=== PATIENT | male | born 1965 | race American Indian/Alaskan Native ===

== ENCOUNTER 2022-01-17 12:38 | Inpatient (IN) | payer OTHER ==
[2022-01-17 14:44] LABS: Albumin 4.3 g/dL (3.9-5); Calcium 8.1 mg/dL (8.4-10.2); Hematocrit 29.8 % (35.5-45.6); Hemoglobin 9.5 gm/dl (11.8-15.2); Mean Corpuscular HGB Conc 32 % (32-34); Mean Corpuscular Volume 87 fl (84-94); Platelet Count 197 K/mm3 (140-440); Red Blood Count 3.41 M/mm3 (3.65-5.03); Red Cell Distribution Width 13.6 % (13.2-15.2)
[2022-01-17 16:26] LABS: Band Neutrophils # (Manual) 0.2 K/mm3; Basophils % (Manual) 0 % (0.0-1.8); Platelet Estimate Consistent w Auto; Total Cells Counted 100
--- NOTE | 2022-01-17 21:47 | Emergency Department Report ---
ED General Adult HPI - General Chief complaint: Recheck/Abnormal Lab/Rx Stated complaint: They sent me here because of my kidney lab Time Seen by Provider: 01/17/22 21:07 Source: patient, RN notes reviewed Mode of arrival: Ambulatory Limitations: No Limitations - History of Present Illness Initial comments: The patient was evaluated in the emergency department for symptoms described in the history of present illness. He/she was evaluated in the context of the global COVID-19 pandemic, which necessitated consideration that the patient might be at risk for infection with the virus that causes COVID-19. Institutional protocols and algorithms that pertain to the evaluation of patients at risk for COVID-19 are in a state of rapid change based on in formation released by regulatory bodies including the CDC and federal and state organizations. These policies and algorithms were followed during the patient's care in the emergency department. Please note that these policies, procedures and recommendations changed on a rapid basis. Nephrology: Dr. Senior Past medical history: Hypertension, high cholesterol, diabetes, recent diagnosis of renal insufficiency. This patient is a pleasant and cooperative 56-year-old gentleman, who was instructed to come to the emergency room because of abnormal outpatient laboratory studies. The patient reports that he was recently diagnosed with chronic renal insufficiency, and is currently following up with nephrology, Dr. Senior, as well as outpatient vascular surgery, [facility] [place]. He is not currently on hemodialysis. He reports that he recently had outpatient laboratory studies obtained, reportedly they were abnormal, and he was instructed to present to the emergency room. The patient currently denies headache, neck pain, chest pain, abdominal pain, shortness of breath, nausea, vomiting, diarrhea, and hematemesis of bright red blood per rectum. He does report intermittent bubbles in his urine, as well as protein in his urine. 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 He does endorse intermittent lower extremity swelling, and lower foot cramping, which is intermittent. He is not currently on hemodialysis -: Sudden Severity scale (0 -10): 0 Associated Symptoms: denies other symptoms - Related Data Allergies Allergy/AdvReac Type Severity Reaction Status Date / Time No Known Allergies Allergy Verified 01/17/22 13:24 ED Review of Systems ROS: Stated complaint: KIDNEY Other details as noted in HPI Comment: All other systems reviewed and negative Musculoskeletal: joint swelling, arthralgia, myalgia ED Physical Exam - General Limitations: No Limitations General appearance: alert, in no apparent distress - Head Head exam: Present: atraumatic, normocephalic - Eye Eye exam: Present: normal appearance, EOMI. Absent: nystagmus - ENT ENT exam: Present: normal exam, normal orophraynx, mucous membranes moist, normal external ear exam - Neck Neck exam: Present: normal inspection, full ROM. Absent: tenderness, meningismus - Respiratory Respiratory exam: Present: normal lung sounds bilaterally. Absent: respiratory distress, wheezes, rales, rhonchi, stridor, decreased breath sounds - Cardiovascular Cardiovascular Exam: Present: regular rate, normal rhythm, normal heart sounds. Absent: bradycardia, tachycardia, irregular rhythm, systolic murmur, diastolic murmur, rubs, gallop - GI/Abdominal GI/Abdominal exam: Present: soft. Absent: distended, tenderness, guarding, rebound, rigid, pulsatile mass - Rectal Rectal exam: Present: deferred - Extremities Exam Extremities exam: Present: normal inspection, full ROM, pedal edema, other (2+ pulses noted in the bilateral upper and lower extremities. There is no palpable cord. negative Homans sign. Muscular compartments are soft. The pelvis is stable.). Absent: calf tenderness - Back Exam Back exam: Present: normal inspection. Absent: tenderness, CVA tenderness (R), paraspinal tenderness, vertebral tenderness - Neurological Exam Neurological exam: Present: alert, oriented X3, normal gait, other (No facial droop. Tongue midline. Extraocular movements intact bilaterally. Facial sensation intact to light touch in V1, V2, V3 distribution bilaterally. 5 and a 5 strength in 4 extremities. Sensation intact to light touch in 4 extremities.). Absent: motor sensory deficit - Psychiatric Psychiatric exam: Present: normal affect, normal mood - Skin Skin exam: Present: warm, dry, intact, normal color. Absent: rash ED Course Vital Signs 01/17/22 01/17/22 01/17/22 13:22 20:58 21:38 Temperature 98.2 F 98.7 F Pulse Rate 91 H 78 92 H Respiratory 20 18 Rate Blood Pressure 153/93 171/91 [Right] O2 Sat by Pulse 98 99 98 Oximetry O2 Sat by Pulse Oximetry [ Digit-Finger] 01/17/22 21:47 Temperature Pulse Rate Respiratory Rate Blood Pressure [Right] O2 Sat by Pulse Oximetry O2 Sat by Pulse 99 Oximetry [ Digit-Finger] - Reevaluation(s) Reevaluation #1: 01/17/22 21:45 Differential diagnosis, including but not limited to: Azotemia, uremia, hyperkalemia, anemia of chronic disease, end-stage renal disease Assessment and plan: 56-year-old gentleman, who is afebrile, with reassuring vital signs, in no acute distress, likely presenting with new onset chronic/end- stage renal disease. He has stigmata of renal impairment, manifested by anemia, hyperkalemia, azotemia, uremia, and metabolic acidosis. Lung sounds clear, but he has 1+ edema in the bilateral lower extremities. Have recommended admission to the medical service for the aforementioned. We have placed a page to his n ephrologist on-call, and we are awaiting callback. Patient is asking to be fed. He has not eaten since 8:00 in the morning. We have recommended admission to the medical service with urgent nephrology consultation. Patient is agreeable to admission and hospitalization. Awaiting callback from his oracle [email or web address] developer. 01/17/22 21:52 01/17/22 21:57 I discussed the patient's history, physical, laboratory studies and clinical impression with Dr. Senior. He recommends admission. He states that the [facility] hrology group will coordinate with vascular surgery for dialysis catheter placement/permacath placement. Hospital physician, Dr. Jaeger to admit to [facility] Patient is agreeable to admission hospitalization. Nephrology has recommended medical treatment for hyperkalemia. Hyperkalemia cocktail has been ordered - Pulse Oximetry Interpretation Digit-Finger Initial Pulse Oximetry Readin O2 Sat by Pulse Oximetry: 99 Actions Taken: none ED Medical Decision Making - Lab Data Result diagrams: 01/17/22 13:32 01/17/22 13:32 Vital Signs 01/17/22 01/17/22 01/17/22 13:22 20:58 21:38 Temperature 98.2 F 98.7 F Pulse Rate 91 H 78 92 H Respiratory 20 18 Rate Blood Pressure 153/93 171/91 [Right] O2 Sat by Pulse 98 99 98 Oximetry Lab Results 08/25/22 08/25/22 Range/Units 13:32 13:32 WBC 8.8 (4.5-11.0) K/mm3 RBC 3.41 L (3.65-5.03) M/mm3 Hgb 9.5 L (11.8-15.2) gm/dl Hct 29.8 L (35.5-45.6) % MCV 87 (84-94) fl MCH 28 (28-32) pg MCHC 32 (32-34) % RDW 13.6 (13.2-15.2) % Plt Count 197 (140-440) K/mm3 Eos % (Auto) Band Maker Add Manual Diff Complete Total Counted 100 Seg Neuts % (Manual) 52.0 (40.0-70.0) % Band Neutrophils % 2.0 % Lymphocytes % (Manual) 11.0 L (13.4-35.0) % Reactive Lymphs % (Man) 0 % Monocytes % (Manual) 1.0 (0.0-7.3) % Eosinophils % (Manual) 33.0 H (0.0-4.3) % Basophils % (Manual) 0 (0.0-1.8) % Metamyelocytes % 1.0 % Myelocytes % 0 % Promyelocytes % 0 % Blast Cells % 0 % Nucleated RBC % Not Reportable Seg Neutrophils # Man 4.6 (1.8-7.7) K/mm3 Band Neutrophils # 0.2 K/mm3 Lymphocytes # (Manual) 1.0 L (1.2-5.4) K/mm3 Abs React Lymphs (Man) 0.0 K/mm3 Monocytes # (Manual) 0.1 (0.0-0.8) K/mm3 Eosinophils # (Manual) 2.9 H (0.0-0.4) K/mm3 Basophils # (Manual) 0.0 (0.0-0.1) K/mm3 Metamyelocytes # 0.1 K/mm3 Myelocytes # 0.0 K/mm3 Promyelocytes # 0.0 K/mm3 Blast Cells # 0.0 K/mm3 WBC Morphology Not Reportable Hypersegmented Neuts Not Reportable Hyposegmented Neuts Not Reportable Hypogranular Neuts Not Reportable Smudge Cells Not Reportable Toxic Granulation Not Reportable Toxic Vacuolation Not Reportable Dohle Bodies Not Reportable Pelger-Huet Anomaly Not Reportable Eddie Rods Not Reportable Platelet Estimate Consistent w auto Clumped Platelets Not Reportable Plt Clumps, EDTA Not Reportable Large Platelets Not Reportable Giant Platelets Not Reportable Platelet Satelliting Not Reportable Plt Morphology Comment Not Reportable RBC Morphology Not Reportable Dimorphic RBCs Not Reportable Polychromasia Not Reportable Hypochromasia Not Reportable Poikilocytosis Not Reportable Anisocytosis Not Reportable Microcytosis Not Reportable Macrocytosis Not Reportable Spherocytes Not Reportable Pappenheimer Bodies Not Reportable Sickle Cells Not Reportable Target Cells Not Reportable Tear Drop Cells Not Reportable Ovalocytes Not Reportable Helmet Cells Not Reportable [place] Bodies Not Reportable [place] Rings Not Reportable Barber Cells Not Reportable Bite Cells Not Reportable Crenated Cell Not Reportable Elliptocytes Not Reportable Acanthocytes (Spur) Not Reportable Rouleaux Not Reportable Hemoglobin C Crystals Not Reportable Schistocytes Not Reportable Malaria parasites Not Reportable Santosh Bodies Not Reportable Hem Pathologist Commnt No Sodium 143 (137-145) mmol/L Potassium 5.6 H (3.6-5.0) mmol/L Chloride 113.6 H (98-107) mmol/L Carbon Dioxide 18 L (22-30) mmol/L Anion Gap 17 mmol/L BUN 55 H (9-20) mg/dL Creatinine 7.1 H (0.8-1.3) mg/dL Estimated GFR 10 ml/min BUN/Creatinine Ratio 8 % Glucose 152 H (75-100) mg/dL Calcium 8.1 L (8.4-10.2) mg/dL Total Bilirubin 0.30 (0.1-1.2) mg/dL AST 18 (5-40) units/L ALT 16 (7-56) units/L Alkaline Phosphatase 97 (35-129) units/L Total Protein 6.6 (6.3-8.2) g/dL Albumin 4.3 (3.9-5) g/dL Albumin/Globulin Ratio 1.9 % - EKG Data -: EKG Interpreted by [place] EKG shows normal: sinus rhythm Rate: normal - EKG Data 01/17/22 21:42 The EKG is interpreted at 21: 25 Sinus rhythm, 75 bpm. Normal axis, normal intervals, normal P wave axis, poor R wave progression, and nonspecific T wave abnormalities. Denies chest pain. Abnormal EKG. Not a STEMI There is no prior EKG available for comparison Critical care attestation.: If time is entered above; I have spent that time in minutes in the direct care of this critically ill patient, excluding procedure time. ED Disposition Clinical Impression: Hyperkalemia, ESRD (end stage renal disease), Anemia of chronic disease, Hypertension, Metabolic acidosis Disposition: 09 ADMITTED INPATIENT Is pt being admited?: Yes Does the pt Need Aspirin: No Condition: Good Instructions: Hypertension (ED)
[2022-01-17] MEDS ORDERED: DEXTROSE 50% IN WATER (25GM) 50 ML SYRINGE IV ONE (21:54)
[2022-01-17] MEDS ORDERED: ALBUTEROL 2.5 MG/3 ML NEBU IH ONE (21:54)
[2022-01-17] MEDS ORDERED: INSULIN REGULAR, HUMAN 100 UNITS/1 ML IV ONE (21:54)
[2022-01-17] MEDS ORDERED: SODIUM BICARB 8.4% 50 MEQ/50 ML SYRINGE IV ONE (21:54)
[2022-01-17] MEDS ORDERED: SODIUM POLYSTYRENE 15 GM/60 ML ORAL LIQD PO ONE (21:54)
[2022-01-17] MEDS ORDERED: FUROSEMIDE 40 MG/4 ML INJ IV ONE (21:56)
[2022-01-17] MEDS ORDERED: ACETAMINOPHEN 325 MG TAB PO PRN ×2 (21:59→22:11)
[2022-01-17] MEDS ORDERED: ONDANSETRON 4 MG/2 ML INJ IV PRN ×2 (21:59→22:11)
[2022-01-17] MEDS ORDERED: NALOXONE 0.4 MG/1 ML INJ IV PRN (22:08)
[2022-01-17] MEDS ORDERED: MORPHINE 4 MG/1 ML INJ IV PRN (22:11)
[2022-01-17] MEDS ORDERED: MORPHINE 2 MG/1 ML INJ IV PRN (22:11)
[2022-01-17] MEDS ORDERED: ALBUTEROL 2.5 MG/3 ML NEBU IH PRN (22:11)
--- NOTE | 2022-01-17 22:17 | History and Physical Report ---
History of Present Illness Date of examination: 01/17/22 Date of admission: 01/17/22 Chief complaint: Acute on chronic kidney disease Hyperkalemia History of present illness: 56-year-old gentleman with history of hypertension, high cholesterol, diabetes and renal insufficiency, who was instructed to come to the emergency room because of abnormal outpatient laboratory studies. The patient reports that he was recently diagnosed with chronic renal insufficiency, and is currently following up with nephrology, Dr. Senior, as well as outpatient vascular surgery, [facility] vascular [place]. He is not currently on hemodialysis. He reports that he recently had outpatient laboratory studies obtained, reportedly they were abnormal, and he was instructed to present to the emergency room. The patient currently denies headache, neck pain, chest pain, abdominal pain, shortness of breath, nausea, vomiting, diarrhea, and hematemesis of bright red blood per rectum. He does report intermittent bubbles in his urine, as well as protein in his urine. 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 He does endorse intermittent lower extremity swelling, and lower foot cramping, which is intermittent. In the emergency room patient is found to have BUN of 55 and creatinine 7.1, potassium 5.6, bicarb 18 and anion gap 17. Subsequently Case discussed with Dr. Senior will see the patient in the morning for hemodialysis we also consult vascular surgery for vascular access. Past History Past Medical History: diabetes, ESRD, hypertension, hyperlipidemia, renal failure Past Surgical History: No surgical history Social history: no significant social history Family history: diabetes, hypertension Medications and Allergies Allergies Allergy/AdvReac Type Severity Reaction Status Date / Time No Known Allergies Allergy Verified 01/17/22 13:24 Active Meds: Active Medications Acetaminophen (Acetaminophen 325 Mg Tab) 650 mg PO Q4H PRN PRN Reason: Pain MILD(1-3)/Fever >100.5/COSTA Naloxone HCl (Naloxone 0.4 Mg/1 Ml Inj) 0.1 mg IV Q2MIN PRN PRN Reason: Res Rate </= 8 or 02 SAT < 92% Ondansetron HCl (Ondansetron 4 Mg/2 Ml Inj) 4 mg IV Q8H PRN PRN Reason: Nausea And Vomiting Sodium Chloride (Sodium Chloride 0.9% 10 Ml Flush Syringe) 10 ml IV BID [facility] Sodium Chloride (Sodium Chloride 0.9% 10 Ml Flush Syringe) 10 ml IV PRN PRN PRN Reason: LINE FLUSH Review of Systems All systems: negative Constitutional: fatigue, weakness, malaise Exam - Constitutional Vitals: Temp Pulse Resp BP Pulse Ox 98.7 F 92 H 18 171/91 99 01/17/22 20:58 01/17/22 21:38 01/17/22 20:58 01/17/22 20:58 01/17/22 21:59 General appearance: Present: no acute distress, well-nourished - EENT Eyes: Present: PERRL ENT: hearing intact, clear oral mucosa - Neck Neck: Present: supple, normal ROM - Respiratory Respiratory effort: normal Respiratory: bilateral: CTA - Cardiovascular Heart Sounds: Present: S1 & S2. Absent: rub, click - Extremities Extremities: pulses symmetrical, No edema Peripheral Pulses: within normal limits - Abdominal General gastrointestinal: Present: soft, non-tender, non-distended, normal bowel sounds Male genitourinary: Present: normal - Integumentary Integumentary: Present: clear, warm, dry - Musculoskeletal Musculoskeletal: gait normal, strength equal bilaterally - Psychiatric Psychiatric: appropriate mood/affect, intact judgment & insight - Neurologic Neurologic: CNII-XII intact, moves all extremities Results - Labs CBC & Chem 7: 01/17/22 13:32 01/17/22 13:32 Labs: Laboratory Last Values WBC 8.8 K/mm3 (4.5-11.0) 01/17/22 13:32 RBC 3.41 M/mm3 (3.65-5.03) L 01/17/22 13:32 Hgb 9.5 gm/dl (11.8-15.2) L 01/17/22 13:32 Hct 29.8 % (35.5-45.6) L 01/17/22 13:32 MCV 87 fl (84-94) 01/17/22 13:32 MCH 28 pg (28-32) 01/17/22 13:32 MCHC 32 % (32-34) 01/17/22 13:32 RDW 13.6 % (13.2-15.2) 01/17/22 13:32 Plt Count 197 K/mm3 (140-440) 01/17/22 13:32 Eos % (Auto) Design Director 01/17/22 13:32 Add Manual Diff Complete 01/17/22 13:32 Total Counted 100 01/17/22 13:32 Seg Neuts % (Manual) 52.0 % (40.0-70.0) 01/17/22 13:32 Band Neutrophils % 2.0 % 01/17/22 13:32 Lymphocytes % (Manual) 11.0 % (13.4-35.0) L 01/17/22 13:32 Reactive Lymphs % (Man) 0 % 01/17/22 13:32 Monocytes % (Manual) 1.0 % (0.0-7.3) 01/17/22 13:32 Eosinophils % (Manual) 33.0 % (0.0-4.3) H 01/17/22 13:32 Basophils % (Manual) 0 % (0.0-1.8) 01/17/22 13:32 Metamyelocytes % 1.0 % 01/17/22 13:32 Myelocytes % 0 % 01/17/22 13:32 Promyelocytes % 0 % 01/17/22 13:32 Blast Cells % 0 % 01/17/22 13:32 Nucleated RBC % Not Reportable 01/17/22 13:32 Seg Neutrophils # Man 4.6 K/mm3 (1.8-7.7) 01/17/22 13:32 Band Neutrophils # 0.2 K/mm3 01/17/22 13:32 Lymphocytes # (Manual) 1.0 K/mm3 (1.2-5.4) L 01/17/22 13:32 Abs React Lymphs (Man) 0.0 K/mm3 01/17/22 13:32 Monocytes # (Manual) 0.1 K/mm3 (0.0-0.8) 01/17/22 13:32 Eosinophils # (Manual) 2.9 K/mm3 (0.0-0.4) H 01/17/22 13:32 Basophils # (Manual) 0.0 K/mm3 (0.0-0.1) 01/17/22 13:32 Metamyelocytes # 0.1 K/mm3 01/17/22 13:32 Myelocytes # 0.0 K/mm3 01/17/22 13:32 Promyelocytes # 0.0 K/mm3 01/17/22 13:32 Blast Cells # 0.0 K/mm3 01/17/22 13:32 WBC Morphology Not Reportable 01/17/22 13:32 Hypersegmented Neuts Not Reportable 01/17/22 13:32 Hyposegmented Neuts Not Reportable 01/17/22 13:32 Hypogranular Neuts Not Reportable 01/17/22 13:32 Smudge Cells Not Reportable 01/17/22 13:32 Toxic Granulation Not Reportable 01/17/22 13:32 Toxic Vacuolation Not Reportable 01/17/22 13:32 Dohle Bodies Not Reportable 01/17/22 13:32 Pelger-Huet Anomaly Not Reportable 01/17/22 13:32 Eddie Rods Not Reportable 01/17/22 13:32 Platelet Estimate Consistent w auto 01/17/22 13:32 Clumped Platelets Not Reportable 01/17/22 13:32 Plt Clumps, EDTA Not Reportable 01/17/22 13:32 Large Platelets Not Reportable 01/17/22 13:32 Giant Platelets Not Reportable 01/17/22 13:32 Platelet Satelliting Not Reportable 01/17/22 13:32 Plt Morphology Comment Not Reportable 01/17/22 13:32 RBC Morphology Not Reportable 01/17/22 13:32 Dimorphic RBCs Not Reportable 01/17/22 13:32 Polychromasia Not Reportable 01/17/22 13:32 Hypochromasia Not Reportable 01/17/22 13:32 Poikilocytosis Not Reportable 01/17/22 13:32 Anisocytosis Not Reportable 01/17/22 13:32 Microcytosis Not Reportable 01/17/22 13:32 Macrocytosis Not Reportable 01/17/22 13:32 Spherocytes Not Reportable 01/17/22 13:32 Pappenheimer Bodies Not Reportable 01/17/22 13:32 Sickle Cells Not Reportable 01/17/22 13:32 Target Cells Not Reportable 01/17/22 13:32 Tear Drop Cells Not Reportable 01/17/22 13:32 Ovalocytes Not Reportable 01/17/22 13:32 Helmet Cells Not Reportable 01/17/22 13:[address] Mathew-[place] Bodies Not Reportable 01/17/22 13:32 [place] Rings Not Reportable 01/17/22 13:32 Barber Cells Not Reportable 01/17/22 13:32 Bite Cells Not Reportable 01/17/22 13:32 Crenated Cell Not Reportable 01/17/22 13:32 Elliptocytes Not Reportable 01/17/22 13:32 Acanthocytes (Spur) Not Reportable 01/17/22 13:32 Rouleaux Not Reportable 01/17/22 13:32 Hemoglobin C Crystals Not Reportable 01/17/22 13:32 Schistocytes Not Reportable 01/17/22 13:32 Malaria parasites Not Reportable 01/17/22 13:32 Santosh Bodies Not Reportable 01/17/22 13:32 Hem Pathologist Commnt No 01/17/22 13:32 Sodium 143 mmol/L (137-145) 01/17/22 13:32 Potassium 5.6 mmol/L (3.6-5.0) H 01/17/22 13:32 Chloride 113.6 mmol/L (98-107) H 01/17/22 13:32 Carbon Dioxide 18 mmol/L (22-30) L 01/17/22 13:32 Anion Gap 17 mmol/L 01/17/22 13:32 BUN 55 mg/dL (9-20) H 01/17/22 13:32 Creatinine 7.1 mg/dL (0.8-1.3) H 01/17/22 13:32 Estimated GFR 10 ml/min 01/17/22 13:32 BUN/Creatinine Ratio 8 % 01/17/22 13:32 Glucose 152 mg/dL (75-100) H 01/17/22 13:32 Calcium 8.1 mg/dL (8.4-10.2) L 01/17/22 13:32 Total Bilirubin 0.30 mg/dL (0.1-1.2) 01/17/22 13:32 AST 18 units/L (5-40) 01/17/22 13:32 ALT 16 units/L (7-56) 01/17/22 13:32 Alkaline Phosphatase 97 units/L (35-129) 01/17/22 13:32 Total Protein 6.6 g/dL (6.3-8.2) 01/17/22 13:32 Albumin 4.3 g/dL (3.9-5) 01/17/22 13:32 Albumin/Globulin Ratio 1.9 % 01/17/22 13:32 Assessment and Plan VTE prophylaxis?: Mechanical Plan of care discussed with patient/family: Yes - Patient Problems (1) ESRD (end stage renal disease) Status: Acute Plan to address problem: With the patient to the medical telemetry. N.p.o. after midnight. Will consult nephrology for evaluation. Avoid nephrotoxic drug. We also consult vascular surgeon for vascular access for hemodialysis. Recheck BMP in the morning (2) Hyperkalemia Status: Acute Plan to address problem: Patient already got insulin 8 units IV x1 dose, D50 1 ampoule. Calcium gluconate. Kayexalate 30 g p.o. x1 dose and sodium bicarb. We will monitor the patient closely recheck BMP in the morning. Nephrology evaluation (3) Diabetes Status: Acute Plan to address problem: Accu-Chek every 6 hours with Humalog moderate dose coverage. Diabetic education. (4) Anemia of chronic disease Status: Acute Plan to address problem: Most likely secondary to CKD. Will consult nephrology for erythropoietin. (5) Hypertension Status: Acute Plan to address problem: Hydralazine 10 mg IV every 6 hours as needed. We will continue the home medication. We will monitor the patient closely (6) Metabolic acidosis Status: Acute Plan to address problem: Patient already get phlegm follow-up sodium bicarb. We will consult nephrology for evaluation. Recheck BMP in the morning (7) DVT prophylaxis Status: Acute Plan to address problem: City for DVT prophylaxis. Pepcid 20 mg p.o. twice daily for GI prophylaxis. Patient is a full code
[2022-01-17] MEDS ORDERED: DEXTROSE 50% IN WATER (25GM) 50 ML SYRINGE IV PRN (22:50)
[2022-01-17] MEDS ORDERED: CALC GLUCONATE 1GM/NS 100 ML 1 GM/100 ML BAG IV ONE (22:51)
[2022-01-18] MEDS ORDERED: IPRATROPIUM/ALBUTEROL SULFATE 3 ML AMPUL.NEB IH SCH (02:00)
[2022-01-18] MEDS: INSULIN LISPRO 100 UNIT/ML SUB-Q SCH ×4 (03:12→18:18)
[2022-01-18 05:12] LABS: Hematocrit 25.4 % (35.5-45.6); Hemoglobin 8.1 gm/dl (11.8-15.2); Mean Corpuscular HGB Conc 32 % (32-34); Mean Corpuscular Volume 87 fl (84-94); Platelet Count 192 K/mm3 (140-440); Red Blood Count 2.94 M/mm3 (3.65-5.03); Red Cell Distribution Width 13.2 % (13.2-15.2)
[2022-01-18 05:33] LABS: Calcium 7.7 mg/dL (8.4-10.2)
[2022-01-18 05:42] LABS: Basophils % (Manual) 0 % (0.0-1.8); Total Cells Counted 100
[2022-01-18 05:43] LABS: Platelet Estimate Consistent w Auto
[2022-01-18] MEDS ORDERED: SODIUM CHLORIDE 0.9% 100 ML IV PRN (07:30)
[2022-01-18] MEDS: IPRATROPIUM/ALBUTEROL SULFATE 3 ML AMPUL.NEB IH SCH ×3 (07:52→20:46)
--- NOTE | 2022-01-18 07:58 | Consultation ---
History of Present Illness - Reason for Consult Consult date: 01/18/22 chronic renal failure Requesting physician: SARAH LAGOS - History of Present Illness 56-year-old male with a history of diabetes mellitus, hypertension complicated by chronic kidney disease which has been progressing. Patient sees Dr. Senior my colleague in the office and was asked to come to the hospital due to worsening kidney function. Patient admits to lower extremity swelling since May this year with cramping in his feet. He denies any nausea, vomiting. No itching. No fever or chills. Labs showed BUN of 55 and creatinine of 7.1 with potassium high at 5.6 and bicarbonate low at 18 mmol/L. Patient also anemic with hemoglobin down to 8.1 g/dL. Patient was referred to vascular but has not had AV access done. He has chosen to do in center hemodialysis. 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 denies: prescription drug abuse, IV drug use Family history: diabetes, hypertension, other (Mother had kidney disease before she ) Medications and Allergies Allergies Allergy/AdvReac Type Severity Reaction Status Date / Time No Known Allergies Allergy Verified 01/17/22 13:24 Active Meds: Active Medications Acetaminophen (Acetaminophen 325 Mg Tab) 650 mg PO Q4H PRN PRN Reason: Pain MILD(1-3)/Fever >100.5/COSTA Albuterol (Albuterol 2.5 Mg/3 Ml Nebu) 2.5 mg IH Q3HRT PRN PRN Reason: Shortness Of Breath Albuterol/Ipratropium (Ipratropium/Albuterol Sulfate 3 Ml Ampul.Neb) 1 ampul IH TIDRT BASSAM Last Admin: 01/18/22 07:52 Dose: 1 ampul Dextrose (Dextrose 50% In Water (25gm) 50 Ml Syringe) 50 ml IV Q30MIN PRN; Protocol PRN Reason: Hypoglycemia Epoetin Indio-epbx (Epoetin [place]io-Epbx 10,000 Unit/1 Ml Vial) 10,000 unit SUB-Q KAREN [facility] Stop: 01/25/22 07:59 Famotidine (Famotidine 10 Mg Tab) 10 mg PO BID [facility] Sodium Chloride (Nacl 0.9%) 100 mls @ 999 mls/hr IV KAREN PRN PRN Reason: Hypotension Insulin Human Lispro (Insulin Lispro 100 Unit/Ml) 0 unit SUB-Q Q6HR [facility]; Protocol Last Admin: 01/18/22 06:06 Dose: Not Given Morphine Sulfate (Morphine 2 Mg/1 Ml Inj) 2 mg IV Q4H PRN PRN Reason: Pain, Moderate (4-6) Morphine Sulfate (Morphine 4 Mg/1 Ml Inj) 4 mg IV Q4H PRN PRN Reason: Pain , Severe (7-10) Naloxone HCl (Naloxone 0.4 Mg/1 Ml Inj) 0.1 mg IV Q2MIN PRN PRN Reason: Res Rate </= 8 or 02 SAT < 92% Ondansetron HCl (Ondansetron 4 Mg/2 Ml Inj) 4 mg IV Q8H PRN PRN Reason: Nausea And Vomiting Sodium Chloride (Sodium Chloride 0.9% 10 Ml Flush Syringe) 10 ml IV BID [facility] Sodium Chloride (Sodium Chloride 0.9% 10 Ml Flush Syringe) 10 ml IV PRN PRN PRN Reason: LINE FLUSH Review of Systems All systems: negative (Constitutional: no fever or chills. No anorexia or weight loss. HEENT: No sore throat or sinus drainage no hearing or vision impairment . Cardiovascular: No chest pain, shortness of breath, palpitations, admits to lower extremity swelling, no dizziness. Respiratory: No cough, sputum,SOB) Gastrointestinal: no abdominal pain, no nausea, no vomiting, no diarrhea, no constipation, no BRBPR Genitourinary Male: no hematuria, no urinary frequency, no urinary hesitancy Musculoskeletal: no morning stiffness, no gait dysfunction, no frequent falls Integumentary: no rash, no pruritis Neurological: no paralysis, no weakness, no parathesias, no numbness, no tingling, no headaches Psychiatric: no anxiety, no depression Endocrine: no cold intolerance, no heat intolerance, no polydipsia, no polyuria, no nocturia Hematologic/Lymphatic: no easy bruising, no easy bleeding Exam - Vital Signs Vital signs: Vital Signs Temp Pulse Resp BP Pulse Ox 98.2 F 91 H 20 153/93 98 01/17/22 13:22 01/17/22 13:22 01/17/22 13:22 01/17/22 13:22 01/17/22 13:22 - Physical Exam Narrative exam: Middle-aged -Wallisian male lying in bed in no acute distress HEENT: NCAT, pink oral mucous membrane Neck: Supple, no venous distention CVS: S1S2 RRR with no murmur, rub or gallop Chest: Clear to auscultation Abdomen: Protuberant, soft, nontender, no organomegaly, bowel sounds are present Extremities: No edema Genitourinary deferred Skin warm and dry Neuro: Awake, alert no focal deficits Results - Lab Results 01/18/22 04:36 01/18/22 04:36 Most recent lab results Calcium 7.7 mg/dL (8.4-10.2) L 01/18/22 04:36 Assessment and Plan - Patient Problems (1) Hyperkalemia Current Visit: Yes Status: Acute Plan to address problem: Hyperkalemia due to advanced chronic kidney disease. Treated medically. (2) Metabolic acidosis Current Visit: Yes Status: Acute Plan to address problem: Uremic acidosis. Start p.o. sodium bicarbonate. (3) Chronic kidney disease, stage 5 Current Visit: Yes Status: Acute Plan to address problem: Patient with hyperkalemia, metabolic acidosis and mild fluid overload. Patient noncompliance with office visits. We will consult vascular for access placement and initiate dialysis. (4) Anemia of chronic disease Current Visit: Yes Status: Acute Plan to address problem: Check iron stores. Start erythropoiesis stimulating agent. Follow-up hemsoy mccall (5) Type 2 diabetes mellitus with diabetic chronic kidney disease Current Visit: Yes Status: Resolved Plan to address problem: Blood sugar management by primary attending (6) Hypertensive chronic kidney disease with stage 5 chronic kidney disease or end stage renal disease Current Visit: Yes Status: Acute Plan to address problem: Follow-up blood pressure on current medications
[2022-01-18] MEDS ORDERED: EPOETIN ALFA-EPBX 10,000 UNIT/1 ML VIAL SUB-Q SCH (08:00)
[2022-01-18 09:54] LABS: Hepatitis B Surface Antigen Non-Reactive (Negative); Hepatitis C Virus Antibody Non-Reactive (NonReactive)
[2022-01-18] MEDS ORDERED: FAMOTIDINE 20 MG TAB PO SCH (10:00)
--- NOTE | 2022-01-18 10:39 | Electrocardiograph Report ---
[facility] Test Date: 2022-01-17 Test Time: 21:25:47 Pat Name: DANIELLE HENDRICKSON Department: Room: A452 1 Gender: M Photographic Lithographer: SHAYNA : 1965 Requested By: TAQUERIA RODRIGUEZ Order Number: [id number] Reading MD: Dmitri Monaco Measurements Intervals [place] Rate: 75 P: 64 MS: 143 QRS: 62 QRSD: 95 T: 114 QT: 371 QTc: 415 Interpretive Statements Sinus rhythm Probable left atrial enlargement Abnrm T, probable ischemia, anterolateral lds No previous ECG available for comparison Electronically Signed On 01-18-2022 10:39:40 EDT by Dmitri Monaco
[2022-01-18] MEDS: FAMOTIDINE 10 MG TAB PO SCH ×2 (11:13→22:00)
[2022-01-18] MEDS ORDERED: HEPARIN/NS 5000 UNIT/500ML 500 ML IR ONE (11:49)
[2022-01-18] MEDS ORDERED: LIDOCAINE MPF (2%) 20 MG/1 ML VIAL 5 ML ONE (11:49)
--- NOTE | 2022-01-18 13:03 | Progress Note ---
Assessment and Plan Assessment and plan: History of present illness: 56-year-old gentleman with history of hypertension, high cholesterol, diabetes and renal insufficiency, who was instructed to come to the emergency room because of abnormal outpatient laboratory studies. The patient reports that he was recently diagnosed with chronic renal insufficiency, and is currently following up with nephrology, Dr. Senior, as well as outpatient vascular surgery, [facility]. He is not currently on hemodialysis. He reports that he recently had outpatient laboratory studies obtained, reportedly they were abnormal, and he was instructed to present to the emergency room. The patient currently denies headache, neck pain, chest pain, abdominal pain, shortness of breath, nausea, vomiting, diarrhea, and hematemesis of bright red blood per rectum. He does report intermittent bubbles in his urine, as well as protein in his urine. 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 He does endorse intermittent lower extremity swelling, and lower foot cramping, which is intermittent. In the emergency room patient is found to have BUN of 55 and creatinine 7.1, potassium 5.6, bicarb 18 and anion gap 17. Subsequently Case discussed with Dr. Senior will see the patient in the morning for hemodialysis we also consult vascular surgery for vascular access. Hospital course: 01/18: VSS. Vascular surgery consulted for vascular access for dialysis. Nephrology following, recommendations noted. Discussed with CM regarding dialysis chair for patient for when he will eventually be discharged outpatient. Assessment and Plan: (1) ESRD (end stage renal disease) Status: Acute Plan to address problem: With the patient to the medical telemetry. N.p.o. after midnight. nephrology for evaluation. Avoid nephrotoxic agents. Consult vascular surgeon for vascular access for hemodialysis. trend serial bmp (2) Hyperkalemia Status: Acute Plan to address problem: Patient already got insulin 8 units IV x1 dose, D50 1 ampoule. Calcium gluconate. Kayexalate 30 g p.o. x1 dose and sodium bicarb. Serial bmp Nephrology evaluation (3) Diabetes Status: Acute Plan to address problem: Accu-Chek every 6 hours with Humalog moderate dose coverage. Diabetic education. (4) Anemia of chronic disease Status: Acute Plan to address problem: Most likely secondary to CKD. Will consult nephrology for erythropoietin. (5) Hypertension Status: Acute Plan to address problem: Hydralazine 10 mg IV every 6 hours as needed. We will continue the home medication. We will monitor the patient closely (6) Metabolic acidosis Status: Acute Plan to address problem: Patient already get phlegm follow-up sodium bicarb. We will consult nephrology for evaluation. Recheck BMP in the morning (7) DVT prophylaxis Status: Acute Plan to address problem: City for DVT prophylaxis. Pepcid 20 mg p.o. twice daily for GI prophylaxis. Patient is a full code #Advance care planning Disease education conducted, care plan discussed, diagnoses discussed, prognosis discussed, patient is full code, patient acknowledges understanding and agree with care plan, +30 minutes. History Interval history: No acute symptomology reported. Extensive discussion regarding dialysis and what it would entail. Discussed the plan for today and patient voiced understanding. Hospitalist Physical - Physical exam Narrative exam: Physical Exam: VITAL SIGNS: Reviewed. GENERAL: The patient appears normally developed, Vital signs as documented. HEAD: No signs of head trauma. EYES: Pupils are equal. Extraocular motions intact. EARS: Hearing grossly intact. MOUTH: Oropharynx is normal. NECK: No adenopathy, no JVD. CHEST: Chest with clear breath sounds bilaterally. No wheezes, rales, or rhonchi. CARDIAC: Regular rate and rhythm. S1 and S2, without murmurs, gallops, or rubs. VASCULAR: No Edema. Peripheral pulses normal and equal in all extremities. ABDOMEN: Soft, non tender and non distended. No rebound or guarding, and no masses palpated. Bowel Sounds normal. MUSCULOSKELETAL: Good range of motion of all major joints. Extremities without clubbing, cyanosis or edema. NEUROLOGIC EXAM: Alert and oriented x 4. no focal sensory or strength deficits. PSYCHIATRIC: Mood normal. SKIN: detail exam as documented in skin assessment - Constitutional Vitals: Temp Pulse Resp BP Pulse Ox 98.7 F 88 18 164/80 97 01/18/22 11:07 01/18/22 11:07 01/18/22 11:07 01/18/22 11:07 01/18/22 11:07 General appearance: Present: no acute distress, well-nourished Results - Labs CBC & Chem 7: 01/18/22 04:36 01/18/22 04:36 Labs: Laboratory Last Values WBC 8.4 K/mm3 (4.5-11.0) 01/18/22 04:36 RBC 2.94 M/mm3 (3.65-5.03) L 01/18/22 04:36 Hgb 8.1 gm/dl (11.8-15.2) L 01/18/22 04:36 Hct 25.4 % (35.5-45.6) L 01/18/22 04:36 MCV 87 fl (84-94) 01/18/22 04:36 MCH 28 pg (28-32) 01/18/22 04:36 MCHC 32 % (32-34) 01/18/22 04:36 RDW 13.2 % (13.2-15.2) 01/18/22 04:36 Plt Count 192 K/mm3 (140-440) 01/18/22 04:36 Eos % (Auto) Sailing Instructor 01/18/22 04:36 Add Manual Diff Complete 01/18/22 04:36 Total Counted 100 01/18/22 04:36 Seg Neuts % (Manual) 46.0 % (40.0-70.0) 01/18/22 04:36 Band Neutrophils % 0 % 01/18/22 04:36 Lymphocytes % (Manual) 31.0 % (13.4-35.0) 01/18/22 04:36 Reactive Lymphs % (Man) 0 % 01/18/22 04:36 Monocytes % (Manual) 1.0 % (0.0-7.3) 01/18/22 04:36 Eosinophils % (Manual) 22.0 % (0.0-4.3) H 01/18/22 04:36 Basophils % (Manual) 0 % (0.0-1.8) 01/18/22 04:36 Metamyelocytes % 0 % 01/18/22 04:36 Myelocytes % 0 % 01/18/22 04:36 Promyelocytes % 0 % 01/18/22 04:36 Blast Cells % 0 % 01/18/22 04:36 Nucleated RBC % Not Reportable 01/18/22 04:36 Seg Neutrophils # Man 3.9 K/mm3 (1.8-7.7) 01/18/22 04:36 Band Neutrophils # 0.0 K/mm3 01/18/22 04:36 Lymphocytes # (Manual) 2.6 K/mm3 (1.2-5.4) 01/18/22 04:36 Abs React Lymphs (Man) 0.0 K/mm3 01/18/22 04:36 Monocytes # (Manual) 0.1 K/mm3 (0.0-0.8) 01/18/22 04:36 Eosinophils # (Manual) 1.8 K/mm3 (0.0-0.4) H 01/18/22 04:36 Basophils # (Manual) 0.0 K/mm3 (0.0-0.1) 01/18/22 04:36 Metamyelocytes # 0.0 K/mm3 01/18/22 04:36 Myelocytes # 0.0 K/mm3 01/18/22 04:36 Promyelocytes # 0.0 K/mm3 01/18/22 04:36 Blast Cells # 0.0 K/mm3 01/18/22 04:36 WBC Morphology Not Reportable 01/18/22 04:36 Hypersegmented Neuts Not Reportable 01/18/22 04:36 Hyposegmented Neuts Not Reportable 01/18/22 04:36 Hypogranular Neuts Not Reportable 01/18/22 04:36 Smudge Cells Not Reportable 01/18/22 04:36 Toxic Granulation Not Reportable 01/18/22 04:36 Toxic Vacuolation Not Reportable 01/18/22 04:36 Dohle Bodies Not Reportable 01/18/22 04:36 Pelger-Huet Anomaly Not Reportable 01/18/22 04:36 Eddie Rods Not Reportable 01/18/22 04:36 Platelet Estimate Consistent w auto 01/18/22 04:36 Clumped Platelets Not Reportable 01/18/22 04:36 Plt Clumps, EDTA Not Reportable 01/18/22 04:36 Large Platelets Not Reportable 01/18/22 04:36 Giant Platelets Not Reportable 01/18/22 04:36 Platelet Satelliting Not Reportable 01/18/22 04:36 Plt Morphology Comment Not Reportable 01/18/22 04:36 RBC Morphology Not Reportable 01/18/22 04:36 Dimorphic RBCs Not Reportable 01/18/22 04:36 Polychromasia Not Reportable 01/18/22 04:36 Hypochromasia Not Reportable 01/18/22 04:36 Poikilocytosis Not Reportable 01/18/22 04:36 Anisocytosis Not Reportable 01/18/22 04:36 Microcytosis Not Reportable 01/18/22 04:36 Macrocytosis Not Reportable 01/18/22 04:36 Spherocytes Not Reportable 01/18/22 04:36 Pappenheimer Bodies Not Reportable 01/18/22 04:36 Sickle Cells Not Reportable 01/18/22 04:36 Target Cells Not Reportable 01/18/22 04:36 Tear Drop Cells Not Reportable 01/18/22 04:36 Ovalocytes Not Reportable 01/18/22 04:36 Helmet Cells Not Reportable 01/18/22 04:36 [place] Bodies Not Reportable 01/18/22 04:36 Sharon Rings Not Reportable 01/18/22 04:36 Barber Cells Not Reportable 01/18/22 04:36 Bite Cells Not Reportable 01/18/22 04:36 Crenated Cell Not Reportable 01/18/22 04:36 Elliptocytes Not Reportable 01/18/22 04:36 Acanthocytes (Spur) Not Reportable 01/18/22 04:36 Rouleaux Not Reportable 01/18/22 04:36 Hemoglobin C Crystals Not Reportable 01/18/22 04:36 Schistocytes Not Reportable 01/18/22 04:36 Malaria parasites Not Reportable 01/18/22 04:36 Santosh Bodies Not Reportable 01/18/22 04:36 Hem Pathologist Commnt No 01/18/22 04:36 Sodium 144 mmol/L (137-145) 01/18/22 04:36 Potassium 4.5 mmol/L (3.6-5.0) 01/18/22 04:36 Chloride 110.2 mmol/L (98-107) H 01/18/22 04:36 Carbon Dioxide 18 mmol/L (22-30) L 01/18/22 04:36 Anion Gap 20 mmol/L 01/18/22 04:36 BUN 53 mg/dL (9-20) H 01/18/22 04:36 Creatinine 6.9 mg/dL (0.8-1.3) H 01/18/22 04:36 Estimated GFR 10 ml/min 01/18/22 04:36 BUN/Creatinine Ratio 8 % 01/18/22 04:36 Glucose 122 mg/dL (75-100) H 01/18/22 04:36 POC Glucose 130 mg/dL (70-105) H 01/18/22 05:54 Calcium 7.7 mg/dL (8.4-10.2) L 01/18/22 04:36 Iron 51 ug/dL (49-181) 01/18/22 04:36 Ferritin 45.8 ng/mL (30.0-300.0) 01/18/22 04:36 Total Bilirubin 0.30 mg/dL (0.1-1.2) 01/17/22 13:32 AST 18 units/L (5-40) 01/17/22 13:32 ALT 16 units/L (7-56) 01/17/22 13:32 Alkaline Phosphatase 97 units/L (35-129) 01/17/22 13:32 Total Protein 6.6 g/dL (6.3-8.2) 01/17/22 13:32 Albumin 4.3 g/dL (3.9-5) 01/17/22 13:32 Albumin/Globulin Ratio 1.9 % 01/17/22 13:32 Hepatitis A IgM Ab Non-reactive (NonReactive) 01/18/22 04:36 Hep Bs Antigen Non-reactive (Negative) 01/18/22 04:36 Hep B Core IgM Ab Non-reactive (NonReactive) 01/18/22 04:36 Hepatitis C Antibody Non-reactive (NonReactive) 01/18/22 04:36 Active Medications - Current Medications Current Medications: Generic Name Dose Route Start Last Admin Trade Name Freq PRN Reason Stop Dose Admin Acetaminophen 650 mg 01/17/22 22:11 Acetaminophen 325 Mg Tab PO Q4H PRN Pain MILD(1-3)/Fever >100.5/COSTA Albuterol 2.5 mg 01/17/22 22:11 Albuterol 2.5 Mg/3 Ml Nebu IH Q3HRT PRN Shortness Of Breath Albuterol/Ipratropium 1 ampul 01/18/22 08:00 01/18/22 07:52 Ipratropium/Albuterol Sulfate 3 Ml Ampul.Neb IH 1 ampul TIDRT BASSAM Administration Dextrose 50 ml 01/17/22 22:50 Dextrose 50% In Water (25gm) 50 Ml Syringe IV Q30MIN PRN Hypoglycemia Protocol Epoetin [place]io-epbx 10,000 unit 01/18/22 08:00 Epoetin [place]-Epbx 10,000 Unit/1 Ml Vial SUB-Q 01/25/22 07:59 KAREN [facility] Famotidine 10 mg 01/18/22 10:00 Famotidine 10 Mg Tab PO BID [facility] Sodium Chloride 100 mls @ 999 mls/hr 01/18/22 07:30 Nacl 0.9% IV KAREN PRN Hypotension Insulin Human Lispro 0 unit 01/18/22 00:00 01/18/22 06:06 Insulin Lispro 100 Unit/Ml SUB-Q Not Given Q6HR [facility] Protocol Morphine Sulfate 2 mg 01/17/22 22:11 Morphine 2 Mg/1 Ml Inj IV Q4H PRN Pain, Moderate (4-6) Morphine Sulfate 4 mg 01/17/22 22:11 Morphine 4 Mg/1 Ml Inj IV Q4H PRN Pain , Severe (7-10) Naloxone HCl 0.1 mg 01/17/22 22:08 Naloxone 0.4 Mg/1 Ml Inj IV Q2MIN PRN Res Rate </= 8 or 02 SAT < 92% Ondansetron HCl 4 mg 01/17/22 22:11 Ondansetron 4 Mg/2 Ml Inj IV Q8H PRN Nausea And Vomiting Sodium Chloride 10 ml 01/18/22 10:00 Sodium Chloride 0.9% 10 Ml Flush Syringe IV BID [facility] Sodium Chloride 10 ml 01/17/22 22:11 Sodium Chloride 0.9% 10 Ml Flush Syringe IV PRN PRN LINE FLUSH
[2022-01-18] MEDS: LIDOCAINE (2%) 20 MG/1 ML VIAL 20 ML MDV INFILTRATI ONE ×2 (13:57→14:17)
[2022-01-18] MEDS: HEPARIN 10,000 UNITS/10 ML VIAL ONE ×2 (13:58→14:23)
[2022-01-18] MEDS ORDERED: MIDAZOLAM 2 MG/2 ML INJ ONE (13:59)
[2022-01-18] MEDS ORDERED: SODIUM CHLORIDE 0.9% 1000 ML 1,000 ML ONE (14:00)
[2022-01-18] MEDS ORDERED: fentaNYL 100 MCG/2 ML INJ ONE (14:00)
--- NOTE | 2022-01-18 14:35 | Consultation ---
History of Present Illness - Reason for Consult Consult date: 01/18/22 End-stage renal disease - History of Present Illness Patient with a history of end-stage renal disease who has been progressing towards dialysis over the past several months. Initially seen in our clinic in October however at that time, the patient did not want placement of dialysis access. He has since progressed to requiring dialysis access. 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 denies: prescription drug abuse, IV drug use Family history: diabetes, hypertension, other (Mother had kidney disease before she ) Medications and Allergies Allergies Allergy/AdvReac Type Severity Reaction Status Date / Time No Known Allergies Allergy Verified 01/17/22 13:24 Active Meds: Active Medications Acetaminophen (Acetaminophen 325 Mg Tab) 650 mg PO Q4H PRN PRN Reason: Pain MILD(1-3)/Fever >100.5/COSTA Albuterol (Albuterol 2.5 Mg/3 Ml Nebu) 2.5 mg IH Q3HRT PRN PRN Reason: Shortness Of Breath Albuterol/Ipratropium (Ipratropium/Albuterol Sulfate 3 Ml Ampul.Neb) 1 ampul IH TIDRT BASSAM Last Admin: 01/18/22 13:50 Dose: Not Given Dextrose (Dextrose 50% In Water (25gm) 50 Ml Syringe) 50 ml IV Q30MIN PRN; Protocol PRN Reason: Hypoglycemia Epoetin [place]-epbx (Epoetin [place]-Epbx 10,000 Unit/1 Ml Vial) 10,000 unit SUB-Q KAREN [facility] Stop: 01/25/22 07:59 Famotidine (Famotidine 10 Mg Tab) 10 mg PO BID [facility] Sodium Chloride (Nacl 0.9%) 100 mls @ 999 mls/hr IV KAREN PRN PRN Reason: Hypotension Insulin Human Lispro (Insulin Lispro 100 Unit/Ml) 0 unit SUB-Q Q6HR [facility]; Protocol Last Admin: 01/18/22 06:06 Dose: Not Given Morphine Sulfate (Morphine 2 Mg/1 Ml Inj) 2 mg IV Q4H PRN PRN Reason: Pain, Moderate (4-6) Morphine Sulfate (Morphine 4 Mg/1 Ml Inj) 4 mg IV Q4H PRN PRN Reason: Pain , Severe (7-10) Naloxone HCl (Naloxone 0.4 Mg/1 Ml Inj) 0.1 mg IV Q2MIN PRN PRN Reason: Res Rate </= 8 or 02 SAT < 92% Ondansetron HCl (Ondansetron 4 Mg/2 Ml Inj) 4 mg IV Q8H PRN PRN Reason: Nausea And Vomiting Sodium Chloride (Sodium Chloride 0.9% 10 Ml Flush Syringe) 10 ml IV BID [facility] Sodium Chloride (Sodium Chloride 0.9% 10 Ml Flush Syringe) 10 ml IV PRN PRN PRN Reason: LINE FLUSH Review of Systems All systems: negative Exam - Constitutional Vitals: Temp Pulse Resp BP Pulse Ox 98.7 F 88 18 164/80 97 01/18/22 11:07 01/18/22 11:07 01/18/22 11:07 01/18/22 11:07 01/18/22 11:07 General appearance: Present: no acute distress - EENT ENT: hearing intact - Neck Neck: Present: supple, normal ROM - Respiratory Respiratory effort: normal - Abdominal General gastrointestinal: Present: deferred Male genitourinary: Present: deferred - Rectal Rectal Exam: deferred - Psychiatric Psychiatric: appropriate mood/affect, cooperative Results - Labs CBC & Chem 7: 01/18/22 04:36 01/18/22 04:36 Labs: Abnormal lab results 01/17/22 01/17/22 01/18/22 Range/Units 13:32 13:32 04:36 RBC 3.41 L 2.94 L (3.65-5.03) M/mm3 Hgb 9.5 L 8.1 L (11.8-15.2) gm/dl Hct 29.8 L 25.4 L (35.5-45.6) % Lymphocytes % (Manual) 11.0 L (13.4-35.0) % Eosinophils % (Manual) 33.0 H 22.0 H (0.0-4.3) % Lymphocytes # (Manual) 1.0 L (1.2-5.4) K/mm3 Eosinophils # (Manual) 2.9 H 1.8 H (0.0-0.4) K/mm3 Potassium 5.6 H (3.6-5.0) mmol/L Chloride 113.6 H (98-107) mmol/L Carbon Dioxide 18 L (22-30) mmol/L BUN 55 H (9-20) mg/dL Creatinine 7.1 H (0.8-1.3) mg/dL Glucose 152 H (75-100) mg/dL POC Glucose (70-105) mg/dL Calcium 8.1 L (8.4-10.2) mg/dL 01/18/22 01/18/22 Range/Units 04:36 05:54 RBC (3.65-5.03) M/mm3 Hgb (11.8-15.2) gm/dl Hct (35.5-45.6) % Lymphocytes % (Manual) (13.4-35.0) % Eosinophils % (Manual) (0.0-4.3) % Lymphocytes # (Manual) (1.2-5.4) K/mm3 Eosinophils # (Manual) (0.0-0.4) K/mm3 Potassium (3.6-5.0) mmol/L Chloride 110.2 H (98-107) mmol/L Carbon Dioxide 18 L (22-30) mmol/L BUN 53 H (9-20) mg/dL Creatinine 6.9 H (0.8-1.3) mg/dL Glucose 122 H (75-100) mg/dL POC Glucose 130 H (70-105) mg/dL Calcium 7.7 L (8.4-10.2) mg/dL Assessment and Plan We will plan on placement of dialysis catheter today. Patient can be discharged with his dialysis catheter intact. During his admission, the patient will undergo vein mapping with a plan on access creation soon. This may take place on an outpatient basis after patient is discharged when he is stable.
--- NOTE | 2022-01-18 14:39 | Operative Report ---
Operative Report Operative Report: Exam: Ultrasound and fluoroscopic guided placement of tunneled hemodialysis catheter Clinical indication: Patient with a history of end-stage renal disease requiring dialysis access Date: 01/18/2022 Procedure: Following an explanation of the risk, benefits and alternatives; written informed consent was obtained. The patient was brought to the angiographic suite and placed in supine position on the examination table. Initial ultrasound evaluation of the neck demonstrated patent internal jugular vein. The patient's right neck and chest wall were prepped and draped in the usual sterile fashion. 1% lidocaine was used for anesthesia. Under ultrasound guidance, a 7 cm 18-gauge needle was advanced into the right internal jugular vein. A 0.035 guidewire was advanced under fluoroscopy to the IVC to document intravenous positioning and for anchoring. The needle was removed. An appropriate catheter exit site was chosen along the right lateral chest wall. 1% lidocaine was used for anesthesia at the catheter exit site and along the tunnel tract. A Bard 23 cm glidepath tunneled hemodialysis catheter was then tunneled antegrade from the catheter exit site to the venotomy site. Following serial dilation over the guidewire under fluoroscopy, a 15 Norwegian peel-away sheath was advanced over the guidewire under fluoroscopy. The guidewire and trocar were removed. The catheter was inserted over the peel-away sheath and the peel-away sheath removed. The catheter tip was positioned in the proximal right atrium. Both ports flushed and aspirated easily and were then locked with appropriate volumes of heparin. The venotomy was closed using 4-0 Vicryl suture and Dermabond. 2-0 Ethilon suture was used to approximate the catheter exit site and to anchor the catheter. Sterile dressings were applied. The patient tolerated the procedure well. There were no immediate postprocedural complications. Conscious sedation was performed under the guidance of radiologic nursing. Continuous cardiopulmonary monitoring was utilized. Impression: Ultrasound and fluoroscopic guided placement of right internal jugular vein tunneled hemodialysis catheter.
[2022-01-19] MEDS: INSULIN LISPRO 100 UNIT/ML SUB-Q SCH ×4 (01:00→17:12)
[2022-01-19 04:44] LABS: Calcium 7.9 mg/dL (8.4-10.2)
--- NOTE | 2022-01-19 09:15 | Progress Note ---
Assessment and Plan Assessment and plan: History of present illness: 56-year-old gentleman with history of hypertension, high cholesterol, diabetes and renal insufficiency, who was instructed to come to the emergency room because of abnormal outpatient laboratory studies. The patient reports that he was recently diagnosed with chronic renal insufficiency, and is currently following up with nephrology, Dr. Senior, as well as outpatient vascular surgery, [facility]. He is not currently on hemodialysis. He reports that he recently had outpatient laboratory studies obtained, reportedly they were abnormal, and he was instructed to present to the emergency room. The patient currently denies headache, neck pain, chest pain, abdominal pain, shortness of breath, nausea, vomiting, diarrhea, and hematemesis of bright red blood per rectum. He does report intermittent bubbles in his urine, as well as protein in his urine. 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 He does endorse intermittent lower extremity swelling, and lower foot cramping, which is intermittent. In the emergency room patient is found to have BUN of 55 and creatinine 7.1, potassium 5.6, bicarb 18 and anion gap 17. Subsequently Case discussed with Dr. Senior will see the patient in the morning for hemodialysis we also consult vascular surgery for vascular access. Hospital course: 01/18: VSS. Vascular surgery consulted for vascular access for dialysis. Nephrology following, recommendations noted. Discussed with CM regarding dialysis chair for patient for when he will eventually be discharged outpatient. 01/19: S/p tunneled HD cath placement. K=5.5 on am labs. Will likely get corrected with HD. Will follow along with nephrology plan. CM working on dialysis chair set up. Anticipate d/c on Friday. Assessment and Plan: (1) ESRD (end stage renal disease) Status: Acute Plan to address problem: With the patient to the medical telemetry. N.p.o. after midnight. nephrology for evaluation. Avoid nephrotoxic agents. Consult vascular surgeon for vascular access for hemodialysis. trend serial bmp (2) Hyperkalemia Status: Acute Plan to address problem: Patient already got insulin 8 units IV x1 dose, D50 1 ampoule. Calcium gluconate. Kayexalate 30 g p.o. x1 dose and sodium bicarb. Serial bmp Nephrology evaluation Correction with HD (3) Diabetes Status: Acute Plan to address problem: Accu-Chek every 6 hours with Humalog moderate dose coverage. Diabetic education. (4) Anemia of chronic disease Status: Acute Plan to address problem: Most likely secondary to CKD. Will consult nephrology for erythropoietin. (5) Hypertension Status: Acute Plan to address problem: Hydralazine 10 mg IV every 6 hours as needed. We will continue the home medication. We will monitor the patient closely (6) Metabolic acidosis Status: Acute Plan to address problem: Patient already get phlegm follow-up sodium bicarb. We will consult nephrology for evaluation. Recheck BMP in the morning (7) DVT prophylaxis Status: Acute Plan to address problem: City for DVT prophylaxis. Pepcid 20 mg p.o. twice daily for GI prophylaxis. Patient is a full code #Advance care planning Disease education conducted, care plan discussed, diagnoses discussed, prognosis discussed, patient is full code, patient acknowledges understanding and agree with care plan, +30 minutes. History Interval history: Resting comfortably no acute complaints. Hospitalist Physical - Physical exam Narrative exam: Physical Exam: VITAL SIGNS: Reviewed. GENERAL: The patient appears normally developed, Vital signs as documented. HEAD: No signs of head trauma. EYES: Pupils are equal. Extraocular motions intact. EARS: Hearing grossly intact. MOUTH: Oropharynx is normal. NECK: No adenopathy, no JVD. CHEST: s/p right tunneled HD catheter. Chest with clear breath sounds bilaterally. No wheezes, rales, or rhonchi. CARDIAC: Regular rate and rhythm. S1 and S2, without murmurs, gallops, or rubs. VASCULAR: No Edema. Peripheral pulses normal and equal in all extremities. ABDOMEN: Soft, non tender and non distended. No rebound or guarding, and no masses palpated. Bowel Sounds normal. MUSCULOSKELETAL: Good range of motion of all major joints. Extremities without clubbing, cyanosis or edema. NEUROLOGIC EXAM: Alert and oriented x 4. no focal sensory or strength deficits. PSYCHIATRIC: Mood normal. SKIN: detail exam as documented in skin assessment - Constitutional Vitals: Temp Pulse Resp BP Pulse Ox 98.9 F 86 16 131/71 97 01/19/22 07:14 01/19/22 07:14 01/19/22 07:14 01/19/22 07:14 01/19/22 07:14 General appearance: Present: no acute distress Results - Labs CBC & Chem 7: 01/18/22 04:36 01/19/22 03:54 Labs: Laboratory Last Values WBC 8.4 K/mm3 (4.5-11.0) 01/18/22 04:36 RBC 2.94 M/mm3 (3.65-5.03) L 01/18/22 04:36 Hgb 8.1 gm/dl (11.8-15.2) L 01/18/22 04:36 Hct 25.4 % (35.5-45.6) L 01/18/22 04:36 MCV 87 fl (84-94) 01/18/22 04:36 MCH 28 pg (28-32) 01/18/22 04:36 MCHC 32 % (32-34) 01/18/22 04:36 RDW 13.2 % (13.2-15.2) 01/18/22 04:36 Plt Count 192 K/mm3 (140-440) 01/18/22 04:36 Eos % (Auto) Junior Sales Representative 01/18/22 04:36 Add Manual Diff Complete 01/18/22 04:36 Total Counted 100 01/18/22 04:36 Seg Neuts % (Manual) 46.0 % (40.0-70.0) 01/18/22 04:36 Band Neutrophils % 0 % 01/18/22 04:36 Lymphocytes % (Manual) 31.0 % (13.4-35.0) 01/18/22 04:36 Reactive Lymphs % (Man) 0 % 01/18/22 04:36 Monocytes % (Manual) 1.0 % (0.0-7.3) 01/18/22 04:36 Eosinophils % (Manual) 22.0 % (0.0-4.3) H 01/18/22 04:36 Basophils % (Manual) 0 % (0.0-1.8) 01/18/22 04:36 Metamyelocytes % 0 % 01/18/22 04:36 Myelocytes % 0 % 01/18/22 04:36 Promyelocytes % 0 % 01/18/22 04:36 Blast Cells % 0 % 01/18/22 04:36 Nucleated RBC % Not Reportable 01/18/22 04:36 Seg Neutrophils # Man 3.9 K/mm3 (1.8-7.7) 01/18/22 04:36 Band Neutrophils # 0.0 K/mm3 01/18/22 04:36 Lymphocytes # (Manual) 2.6 K/mm3 (1.2-5.4) 01/18/22 04:36 Abs React Lymphs (Man) 0.0 K/mm3 01/18/22 04:36 Monocytes # (Manual) 0.1 K/mm3 (0.0-0.8) 01/18/22 04:36 Eosinophils # (Manual) 1.8 K/mm3 (0.0-0.4) H 01/18/22 04:36 Basophils # (Manual) 0.0 K/mm3 (0.0-0.1) 01/18/22 04:36 Metamyelocytes # 0.0 K/mm3 01/18/22 04:36 Myelocytes # 0.0 K/mm3 01/18/22 04:36 Promyelocytes # 0.0 K/mm3 01/18/22 04:36 Blast Cells # 0.0 K/mm3 01/18/22 04:36 WBC Morphology Not Reportable 01/18/22 04:36 Hypersegmented Neuts Not Reportable 01/18/22 04:36 Hyposegmented Neuts Not Reportable 01/18/22 04:36 Hypogranular Neuts Not Reportable 01/18/22 04:36 Smudge Cells Not Reportable 01/18/22 04:36 Toxic Granulation Not Reportable 01/18/22 04:36 Toxic Vacuolation Not Reportable 01/18/22 04:36 Dohle Bodies Not Reportable 01/18/22 04:36 Pelger-Huet Anomaly Not Reportable 01/18/22 04:36 Eddie Rods Not Reportable 01/18/22 04:36 Platelet Estimate Consistent w auto 01/18/22 04:36 Clumped Platelets Not Reportable 01/18/22 04:36 Plt Clumps, EDTA Not Reportable 01/18/22 04:36 Large Platelets Not Reportable 01/18/22 04:36 Giant Platelets Not Reportable 01/18/22 04:36 Platelet Satelliting Not Reportable 01/18/22 04:36 Plt Morphology Comment Not Reportable 01/18/22 04:36 RBC Morphology Not Reportable 01/18/22 04:36 Dimorphic RBCs Not Reportable 01/18/22 04:36 Polychromasia Not Reportable 01/18/22 04:36 Hypochromasia Not Reportable 01/18/22 04:36 Poikilocytosis Not Reportable 01/18/22 04:36 Anisocytosis Not Reportable 01/18/22 04:36 Microcytosis Not Reportable 01/18/22 04:36 Macrocytosis Not Reportable 01/18/22 04:36 Spherocytes Not Reportable 01/18/22 04:36 Pappenheimer Bodies Not Reportable 01/18/22 04:36 Sickle Cells Not Reportable 01/18/22 04:36 Target Cells Not Reportable 01/18/22 04:36 Tear Drop Cells Not Reportable 01/18/22 04:36 Ovalocytes Not Reportable 01/18/22 04:36 Helmet Cells Not Reportable 01/18/22 04:36 Mathew-Hartwick Seminary Bodies Not Reportable 01/18/22 04:36 Hague Rings Not Reportable 01/18/22 04:36 Peotone Cells Not Reportable 01/18/22 04:36 Bite Cells Not Reportable 01/18/22 04:36 Crenated Cell Not Reportable 01/18/22 04:36 Elliptocytes Not Reportable 01/18/22 04:36 Acanthocytes (Spur) Not Reportable 01/18/22 04:36 Rouleaux Not Reportable 01/18/22 04:36 Hemoglobin C Crystals Not Reportable 01/18/22 04:36 Schistocytes Not Reportable 01/18/22 04:36 Malaria parasites Not Reportable 01/18/22 04:36 Santosh Bodies Not Reportable 01/18/22 04:36 Hem Pathologist Commnt No 01/18/22 04:36 Sodium 144 mmol/L (137-145) 01/19/22 03:54 Potassium 5.5 mmol/L (3.6-5.0) H D 01/19/22 03:54 Chloride 109.0 mmol/L (98-107) H 01/19/22 03:54 Carbon Dioxide 20 mmol/L (22-30) L 01/19/22 03:54 Anion Gap 21 mmol/L 01/19/22 03:54 BUN 39 mg/dL (9-20) H 01/19/22 03:54 Creatinine 5.4 mg/dL (0.8-1.3) H 01/19/22 03:54 Estimated GFR 13 ml/min 01/19/22 03:54 BUN/Creatinine Ratio 7 % 01/19/22 03:54 Glucose 143 mg/dL (75-100) H 01/19/22 03:54 POC Glucose 167 mg/dL (70-105) H 01/19/22 05:32 Calcium 7.9 mg/dL (8.4-10.2) L 01/19/22 03:54 Phosphorus 4.70 mg/dL (2.5-4.5) H 01/19/22 03:54 Magnesium 1.70 mg/dL (1.7-2.3) 01/19/22 03:54 Iron 51 ug/dL (49-181) 01/18/22 04:36 Ferritin 45.8 ng/mL (30.0-300.0) 01/18/22 04:36 Total Bilirubin 0.30 mg/dL (0.1-1.2) 01/17/22 13:32 AST 18 units/L (5-40) 01/17/22 13:32 ALT 16 units/L (7-56) 01/17/22 13:32 Alkaline Phosphatase 97 units/L (35-129) 01/17/22 13:32 Total Protein 6.6 g/dL (6.3-8.2) 01/17/22 13:32 Albumin 4.3 g/dL (3.9-5) 01/17/22 13:32 Albumin/Globulin Ratio 1.9 % 01/17/22 13:32 Hepatitis A IgM Ab Non-reactive (NonReactive) 01/18/22 04:36 Hep Bs Antigen Non-reactive (Negative) 01/18/22 04:36 Hep B Core IgM Ab Non-reactive (NonReactive) 01/18/22 04:36 Hepatitis C Antibody Non-reactive (NonReactive) 01/18/22 04:36 Lopez/IV: Voiding Method Toilet Active Medications - Current Medications Current Medications: Generic Name Dose Route Start Last Admin Trade Name Freq PRN Reason Stop Dose Admin Acetaminophen 650 mg 01/17/22 22:11 Acetaminophen 325 Mg Tab PO Q4H PRN Pain MILD(1-3)/Fever >100.5/COSTA Albuterol 2.5 mg 01/17/22 22:11 Albuterol 2.5 Mg/3 Ml Nebu IH Q3HRT PRN Shortness Of Breath Dextrose 50 ml 01/17/22 22:50 Dextrose 50% In Water (25gm) 50 Ml Syringe IV Q30MIN PRN Hypoglycemia Protocol Epoetin [place]io-epbx 10,000 unit 01/18/22 08:00 Epoetin [place]-Epbx 10,000 Unit/1 Ml Vial SUB-Q 01/25/22 07:59 KAREN BASSAM Famotidine 10 mg 01/18/22 10:00 01/18/22 22:00 Famotidine 10 Mg Tab PO 10 mg BID BASSAM Administration Sodium Chloride 100 mls @ 999 mls/hr 01/18/22 07:30 Nacl 0.9% IV KAREN PRN Hypotension Insulin Human Lispro 0 unit 01/18/22 00:00 01/19/22 06:30 Insulin Lispro 100 Unit/Ml SUB-Q 2 unit Q6HR BASSAM Administration Protocol Morphine Sulfate 2 mg 01/17/22 22:11 Morphine 2 Mg/1 Ml Inj IV Q4H PRN Pain, Moderate (4-6) Morphine Sulfate 4 mg 01/17/22 22:11 Morphine 4 Mg/1 Ml Inj IV Q4H PRN Pain , Severe (7-10) Naloxone HCl 0.1 mg 01/17/22 22:08 Naloxone 0.4 Mg/1 Ml Inj IV Q2MIN PRN Res Rate </= 8 or 02 SAT < 92% Ondansetron HCl 4 mg 01/17/22 22:11 Ondansetron 4 Mg/2 Ml Inj IV Q8H PRN Nausea And Vomiting Sodium Chloride 10 ml 01/18/22 10:00 01/18/22 22:00 Sodium Chloride 0.9% 10 Ml Flush Syringe IV 10 ml BID BASSAM Administration Sodium Chloride 10 ml 01/17/22 22:11 Sodium Chloride 0.9% 10 Ml Flush Syringe IV PRN PRN LINE FLUSH Nutrition/Malnutrition Assess - Dietary Evaluation Nutrition/Malnutrition Findings: Nutrition Notes Start: 01/18/22 12:54 Freq: Status: Active Protocol: Document 01/18/22 12:54 GEOFFREY (Rec: 01/18/22 13:00 GEOFFREY [email or web address]) Nutrition Notes Need for Assessment generated from: MD Order,editing clerk,MST, Education Initial or Follow up Assessment Current Diagnosis CKD (stage V CKD),Diabetes, Hypertension,Hyperlipidemia Other Pertinent Diagnosis ESRD (newly diagnosed) Current Diet NPO Labs/Tests BUN 53 Cr 6.9 Pertinent Medications Reviewed Height 6 ft 2 in Weight 85.7 kg [place] Body Weight (kg) 86.36 BMI 24.3 Weight Status Appropriate Subjective/Other Information RD consulted for diet education; pt also screened for malnutrition risk. Vascular surgeon consulted for vascular access for initiation of HD. Pt with hostile mood per RN report. Burn Absent Trauma Absent Minimum of two criteria No #1 Nutrition Diagnosis Altered nutrition-related laboratory values Etiology newly diagnosed ESRD As Evidenced by Signs and Symptoms elevated BUN and Cr labs Is patient on ventilator? No Is Patient Ambulatory and/or Out of Bed Yes REE-(Dudley-St. Jeor-ambulatory/OOB) [ [id number] [id number]] Calculation Used for Recommendations Dudley-St Jeor Additional Notes Pro needs >1.2g/kg: >103g/day Fluid needs 1-1.5L/day Nutrition Intervention Change Diet Order: Diet advancement when medically feasible Goal #1 Advance diet to meet nutrient needs Anticipated Discharge Needs: Renal, CHO-controlled diet Follow-Up By: 01/21/22 Additional Comments F/U: diet advancement, diet education needs (new dialysis)
[2022-01-19] MEDS: FAMOTIDINE 10 MG TAB PO SCH ×2 (09:27→21:09)
--- NOTE | 2022-01-19 14:13 | Progress Note ---
Assessment and Plan - Patient Problems (1) Hyperkalemia Current Visit: Yes Status: Acute Plan to address problem: Hyperkalemia due to advanced chronic kidney disease. Potassium again a bit high today. We will give a dose of Kionex and then resume dialysis on Friday.. (2) Metabolic acidosis Current Visit: Yes Status: Acute Plan to address problem: Uremic acidosis. Start p.o. sodium bicarbonate. Improved with dialysis. (3) Chronic kidney disease, stage 5 Current Visit: Yes Status: Acute Plan to address problem: Patient with hyperkalemia, metabolic acidosis and mild fluid overload. Patient noncompliance with office visits. Status post permacath placement and initial dialysis yesterday which patient tolerated with no complications. Hemodialysis again on Friday. land surveying manager has been consulted to assist with outpatient dialysis placement. (4) Anemia of chronic disease Current Visit: Yes Status: Acute Plan to address problem: Check iron stores. Start erythropoiesis stimulating agent. Follow-up hemoglobin (5) Type 2 diabetes mellitus with diabetic chronic kidney disease Current Visit: Yes Status: Resolved Plan to address problem: Blood sugar management by primary attending (6) Hypertensive chronic kidney disease with stage 5 chronic kidney disease or end stage renal disease Current Visit: Yes Status: Acute Plan to address problem: Follow-up blood pressure on current medications Subjective Date of service: 01/19/22 Principal diagnosis: Chronic kidney disease stage V Interval history: Patient seen lying in bed. No complaints. No chest pain, shortness of breath, nausea or vomiting. Had permacath placed yesterday. Had dialysis yesterday and tolerated it with no complications. Objective - Exam Narrative Exam: Middle-aged -Prydeinig male lying in bed in no acute distress HEENT: NCAT, pink oral mucous membrane Neck: Supple, no venous distention CVS: S1S2 RRR with no murmur, rub or gallop Chest: Clear to auscultation Abdomen: Protuberant, soft, nontender, no organomegaly, bowel sounds are present Extremities: No edema Genitourinary deferred Skin warm and dry Neuro: Awake, alert no focal deficits - Vital Signs Vital signs: Vital Signs - 12hr 01/19/22 01/19/22 01/19/22 05:12 07:14 10:00 Temperature 97.9 F 98.9 F Pulse Rate 87 86 Respiratory 18 16 18 Rate Blood Pressure 158/70 131/71 O2 Sat by Pulse 96 97 97 Oximetry 01/19/22 11:07 Temperature 98.8 F Pulse Rate 81 Respiratory 18 Rate Blood Pressure 163/83 O2 Sat by Pulse 100 Oximetry - Lab 01/18/22 04:36 01/19/22 03:54 Most recent lab results Calcium 7.9 mg/dL (8.4-10.2) L 01/19/22 03:54 Phosphorus 4.70 mg/dL (2.5-4.5) H 01/19/22 03:54 Magnesium 1.70 mg/dL (1.7-2.3) 01/19/22 03:54 Medications & Allergies - Medications Allergies/Adverse Reactions: Allergies No Known Allergies Allergy (Verified 01/17/22 13:24) Active Medications: Generic Name Dose Route Start Last Admin Trade Name Freq PRN Reason Stop Dose Admin Acetaminophen 650 mg 01/17/22 22:11 01/19/22 09:29 Acetaminophen 325 Mg Tab PO 650 mg Q4H PRN Administration Pain MILD(1-3)/Fever >100.5/COSTA Albuterol 2.5 mg 01/17/22 22:11 Albuterol 2.5 Mg/3 Ml Nebu IH Q3HRT PRN Shortness Of Breath Dextrose 50 ml 01/17/22 22:50 Dextrose 50% In Water (25gm) 50 Ml Syringe IV Q30MIN PRN Hypoglycemia Protocol Epoetin [place]-epbx 10,000 unit 01/18/22 08:00 Epoetin [place]-Epbx 10,000 Unit/1 Ml Vial SUB-Q 01/25/22 07:59 KAREN BASSAM Famotidine 10 mg 01/18/22 10:00 01/19/22 09:27 Famotidine 10 Mg Tab PO 10 mg BID BASSAM Administration Sodium Chloride 100 mls @ 999 mls/hr 01/18/22 07:30 Nacl 0.9% IV KAREN PRN Hypotension Insulin Human Lispro 0 unit 01/18/22 00:00 01/19/22 13:00 Insulin Lispro 100 Unit/Ml SUB-Q 2 unit Q6HR BASSAM Administration Protocol Labetalol HCl 10 mg 01/19/22 09:17 Labetalol 20 Mg/4 Ml Inj IV Q4HR PRN sbp > 160 Morphine Sulfate 2 mg 01/17/22 22:11 Morphine 2 Mg/1 Ml Inj IV Q4H PRN Pain, Moderate (4-6) Morphine Sulfate 4 mg 01/17/22 22:11 Morphine 4 Mg/1 Ml Inj IV Q4H PRN Pain , Severe (7-10) Naloxone HCl 0.1 mg 01/17/22 22:08 Naloxone 0.4 Mg/1 Ml Inj IV Q2MIN PRN Res Rate </= 8 or 02 SAT < 92% Ondansetron HCl 4 mg 01/17/22 22:11 Ondansetron 4 Mg/2 Ml Inj IV Q8H PRN Nausea And Vomiting Sodium Chloride 10 ml 01/18/22 10:00 01/19/22 09:27 Sodium Chloride 0.9% 10 Ml Flush Syringe IV 10 ml BID BASSAM Administration Sodium Chloride 10 ml 01/17/22 22:11 Sodium Chloride 0.9% 10 Ml Flush Syringe IV PRN PRN LINE FLUSH
[2022-01-19] MEDS ORDERED: SODIUM POLYSTYRENE 15 GM/60 ML ORAL LIQD PO ONE (14:16)
[2022-01-20] MEDS: INSULIN LISPRO 100 UNIT/ML SUB-Q SCH ×4 (00:10→17:49)
--- NOTE | 2022-01-20 08:35 | Progress Note ---
Assessment and Plan Assessment and plan: History of present illness: 56-year-old gentleman with history of hypertension, high cholesterol, diabetes and renal insufficiency, who was instructed to come to the emergency room because of abnormal outpatient laboratory studies. The patient reports that he was recently diagnosed with chronic renal insufficiency, and is currently following up with nephrology, Dr. Senior, as well as outpatient vascular surgery, [facility]. He is not currently on hemodialysis. He reports that he recently had outpatient laboratory studies obtained, reportedly they were abnormal, and he was instructed to present to the emergency room. The patient currently denies headache, neck pain, chest pain, abdominal pain, shortness of breath, nausea, vomiting, diarrhea, and hematemesis of bright red blood per rectum. He does report intermittent bubbles in his urine, as well as protein in his urine. 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 He does endorse intermittent lower extremity swelling, and lower foot cramping, which is intermittent. In the emergency room patient is found to have BUN of 55 and creatinine 7.1, potassium 5.6, bicarb 18 and anion gap 17. Subsequently Case discussed with Dr. Senior will see the patient in the morning for hemodialysis we also consult vascular surgery for vascular access. Hospital course: 01/18: VSS. Vascular surgery consulted for vascular access for dialysis. Nephrology following, recommendations noted. Discussed with CM regarding dialysis chair for patient for when he will eventually be discharged outpatient. 01/19: S/p tunneled HD cath placement. K=5.5 on am labs. Will likely get corrected with HD. Will follow along with nephrology plan. CM working on dialysis chair set up. Anticipate d/c on Friday. 01/20: Awaiting am labs, given kionex by nephrology yesterday. Plan is for dialysis friday. CM working on dialysis chair. Assessment and Plan: (1) ESRD (end stage renal disease) Status: Acute Plan to address problem: With the patient to the medical telemetry. N.p.o. after midnight. nephrology for evaluation. Avoid nephrotoxic agents. Consult vascular surgeon for vascular access for hemodialysis. trend serial bmp (2) Hyperkalemia Status: Acute Plan to address problem: Patient already got insulin 8 units IV x1 dose, D50 1 ampoule. Calcium gluconate. Kayexalate 30 g p.o. x1 dose and sodium bicarb. Serial bmp Nephrology evaluation Correction with HD (3) Diabetes Status: Acute Plan to address problem: Accu-Chek every 6 hours with Humalog moderate dose coverage. Diabetic education. (4) Anemia of chronic disease Status: Acute Plan to address problem: Most likely secondary to CKD. Will consult nephrology for erythropoietin. (5) Hypertension Status: Acute Plan to address problem: Hydralazine 10 mg IV every 6 hours as needed. We will continue the home medication. We will monitor the patient closely (6) Metabolic acidosis Status: Acute Plan to address problem: Patient already get phlegm follow-up sodium bicarb. We will consult nephrology for evaluation. Recheck BMP in the morning (7) DVT prophylaxis Status: Acute Plan to address problem: City for DVT prophylaxis. Pepcid 20 mg p.o. twice daily for GI prophylaxis. Patient is a full code #Advance care planning Disease education conducted, care plan discussed, diagnoses discussed, prognosis discussed, patient is full code, patient acknowledges understanding and agree with care plan, +30 minutes. History Interval history: No acute complaints this AM. Hospitalist Physical - Physical exam Narrative exam: Physical Exam: VITAL SIGNS: Reviewed. GENERAL: The patient appears normally developed, Vital signs as documented. HEAD: No signs of head trauma. EYES: Pupils are equal. Extraocular motions intact. EARS: Hearing grossly intact. MOUTH: Oropharynx is normal. NECK: No adenopathy, no JVD. CHEST: s/p right tunneled HD catheter. Chest with clear breath sounds bilaterally. No wheezes, rales, or rhonchi. CARDIAC: Regular rate and rhythm. S1 and S2, without murmurs, gallops, or rubs. VASCULAR: No Edema. Peripheral pulses normal and equal in all extremities. ABDOMEN: Soft, non tender and non distended. No rebound or guarding, and no masses palpated. Bowel Sounds normal. MUSCULOSKELETAL: Good range of motion of all major joints. Extremities without clubbing, cyanosis or edema. NEUROLOGIC EXAM: Alert and oriented x 4. no focal sensory or strength deficits. PSYCHIATRIC: Mood normal. SKIN: detail exam as documented in skin assessment - Constitutional Vitals: Temp Pulse Resp BP Pulse Ox 98.1 F 75 18 165/87 96 01/20/22 04:21 01/20/22 04:21 01/20/22 04:21 01/20/22 04:21 01/20/22 04:21 General appearance: Present: no acute distress Results - Labs CBC & Chem 7: 01/18/22 04:36 01/19/22 03:54 Labs: Laboratory Last Values WBC 8.4 K/mm3 (4.5-11.0) 01/18/22 04:36 RBC 2.94 M/mm3 (3.65-5.03) L 01/18/22 04:36 Hgb 8.1 gm/dl (11.8-15.2) L 01/18/22 04:36 Hct 25.4 % (35.5-45.6) L 01/18/22 04:36 MCV 87 fl (84-94) 01/18/22 04:36 MCH 28 pg (28-32) 01/18/22 04:36 MCHC 32 % (32-34) 01/18/22 04:36 RDW 13.2 % (13.2-15.2) 01/18/22 04:36 Plt Count 192 K/mm3 (140-440) 01/18/22 04:36 Eos % (Auto) Stone Operator 01/18/22 04:36 Add Manual Diff Complete 01/18/22 04:36 Total Counted 100 01/18/22 04:36 Seg Neuts % (Manual) 46.0 % (40.0-70.0) 01/18/22 04:36 Band Neutrophils % 0 % 01/18/22 04:36 Lymphocytes % (Manual) 31.0 % (13.4-35.0) 01/18/22 04:36 Reactive Lymphs % (Man) 0 % 01/18/22 04:36 Monocytes % (Manual) 1.0 % (0.0-7.3) 01/18/22 04:36 Eosinophils % (Manual) 22.0 % (0.0-4.3) H 01/18/22 04:36 Basophils % (Manual) 0 % (0.0-1.8) 01/18/22 04:36 Metamyelocytes % 0 % 01/18/22 04:36 Myelocytes % 0 % 01/18/22 04:36 Promyelocytes % 0 % 01/18/22 04:36 Blast Cells % 0 % 01/18/22 04:36 Nucleated RBC % Not Reportable 01/18/22 04:36 Seg Neutrophils # Man 3.9 K/mm3 (1.8-7.7) 01/18/22 04:36 Band Neutrophils # 0.0 K/mm3 01/18/22 04:36 Lymphocytes # (Manual) 2.6 K/mm3 (1.2-5.4) 01/18/22 04:36 Abs React Lymphs (Man) 0.0 K/mm3 01/18/22 04:36 Monocytes # (Manual) 0.1 K/mm3 (0.0-0.8) 01/18/22 04:36 Eosinophils # (Manual) 1.8 K/mm3 (0.0-0.4) H 01/18/22 04:36 Basophils # (Manual) 0.0 K/mm3 (0.0-0.1) 01/18/22 04:36 Metamyelocytes # 0.0 K/mm3 01/18/22 04:36 Myelocytes # 0.0 K/mm3 01/18/22 04:36 Promyelocytes # 0.0 K/mm3 01/18/22 04:36 Blast Cells # 0.0 K/mm3 01/18/22 04:36 WBC Morphology Not Reportable 01/18/22 04:36 Hypersegmented Neuts Not Reportable 01/18/22 04:36 Hyposegmented Neuts Not Reportable 01/18/22 04:36 Hypogranular Neuts Not Reportable 01/18/22 04:36 Smudge Cells Not Reportable 01/18/22 04:36 Toxic Granulation Not Reportable 01/18/22 04:36 Toxic Vacuolation Not Reportable 01/18/22 04:36 Dohle Bodies Not Reportable 01/18/22 04:36 Pelger-Huet Anomaly Not Reportable 01/18/22 04:36 Eddie Rods Not Reportable 01/18/22 04:36 Platelet Estimate Consistent w auto 01/18/22 04:36 Clumped Platelets Not Reportable 01/18/22 04:36 Plt Clumps, EDTA Not Reportable 01/18/22 04:36 Large Platelets Not Reportable 01/18/22 04:36 Giant Platelets Not Reportable 01/18/22 04:36 Platelet Satelliting Not Reportable 01/18/22 04:36 Plt Morphology Comment Not Reportable 01/18/22 04:36 RBC Morphology Not Reportable 01/18/22 04:36 Dimorphic RBCs Not Reportable 01/18/22 04:36 Polychromasia Not Reportable 01/18/22 04:36 Hypochromasia Not Reportable 01/18/22 04:36 Poikilocytosis Not Reportable 01/18/22 04:36 Anisocytosis Not Reportable 01/18/22 04:36 Microcytosis Not Reportable 01/18/22 04:36 Macrocytosis Not Reportable 01/18/22 04:36 Spherocytes Not Reportable 01/18/22 04:36 Pappenheimer Bodies Not Reportable 01/18/22 04:36 Sickle Cells Not Reportable 01/18/22 04:36 Target Cells Not Reportable 01/18/22 04:36 Tear Drop Cells Not Reportable 01/18/22 04:36 Ovalocytes Not Reportable 01/18/22 04:36 Helmet Cells Not Reportable 01/18/22 04:36 Mathew[place] Bodies Not Reportable 01/18/22 04:36 [place] Rings Not Reportable 01/18/22 04:36 Barber Cells Not Reportable 01/18/22 04:36 Bite Cells Not Reportable 01/18/22 04:36 Crenated Cell Not Reportable 01/18/22 04:36 Elliptocytes Not Reportable 01/18/22 04:36 Acanthocytes (Spur) Not Reportable 01/18/22 04:36 Rouleaux Not Reportable 01/18/22 04:36 Hemoglobin C Crystals Not Reportable 01/18/22 04:36 Schistocytes Not Reportable 01/18/22 04:36 Malaria parasites Not Reportable 01/18/22 04:36 Santosh Bodies Not Reportable 01/18/22 04:36 Hem Pathologist Commnt No 01/18/22 04:36 Sodium 144 mmol/L (137-145) 01/19/22 03:54 Potassium 5.5 mmol/L (3.6-5.0) H D 01/19/22 03:54 Chloride 109.0 mmol/L (98-107) H 01/19/22 03:54 Carbon Dioxide 20 mmol/L (22-30) L 01/19/22 03:54 Anion Gap 21 mmol/L 01/19/22 03:54 BUN 39 mg/dL (9-20) H 01/19/22 03:54 Creatinine 5.4 mg/dL (0.8-1.3) H 01/19/22 03:54 Estimated GFR 13 ml/min 01/19/22 03:54 BUN/Creatinine Ratio 7 % 01/19/22 03:54 Glucose 143 mg/dL (75-100) H 01/19/22 03:54 POC Glucose 162 mg/dL (70-105) H 01/19/22 23:11 Calcium 7.9 mg/dL (8.4-10.2) L 01/19/22 03:54 Phosphorus 4.70 mg/dL (2.5-4.5) H 01/19/22 03:54 Magnesium 1.70 mg/dL (1.7-2.3) 01/19/22 03:54 Iron 51 ug/dL (49-181) 01/18/22 04:36 Ferritin 45.8 ng/mL (30.0-300.0) 01/18/22 04:36 Total Bilirubin 0.30 mg/dL (0.1-1.2) 01/17/22 13:32 AST 18 units/L (5-40) 01/17/22 13:32 ALT 16 units/L (7-56) 01/17/22 13:32 Alkaline Phosphatase 97 units/L (35-129) 01/17/22 13:32 Total Protein 6.6 g/dL (6.3-8.2) 01/17/22 13:32 Albumin 4.3 g/dL (3.9-5) 01/17/22 13:32 Albumin/Globulin Ratio 1.9 % 01/17/22 13:32 Hepatitis A IgM Ab Non-reactive (NonReactive) 01/18/22 04:36 Hep Bs Antigen Non-reactive (Negative) 01/18/22 04:36 Hep B Core IgM Ab Non-reactive (NonReactive) 01/18/22 04:36 Hepatitis C Antibody Non-reactive (NonReactive) 01/18/22 04:36 Lopez/IV: Voiding Method Toilet Active Medications - Current Medications Current Medications: Generic Name Dose Route Start Last Admin Trade Name Freq PRN Reason Stop Dose Admin Acetaminophen 650 mg 01/17/22 22:11 01/19/22 09:29 Acetaminophen 325 Mg Tab PO 650 mg Q4H PRN Administration Pain MILD(1-3)/Fever >100.5/COSTA Albuterol 2.5 mg 01/17/22 22:11 Albuterol 2.5 Mg/3 Ml Nebu IH Q3HRT PRN Shortness Of Breath Amlodipine Besylate 10 mg 01/20/22 10:00 Amlodipine 10 Mg Tab PO QDAY BASSAM Dextrose 50 ml 01/17/22 22:50 Dextrose 50% In Water (25gm) 50 Ml Syringe IV Q30MIN PRN Hypoglycemia Protocol Epoetin [place]-epbx 10,000 unit 01/18/22 08:00 Epoetin [place]-Epbx 10,000 Unit/1 Ml Vial SUB-Q 01/25/22 07:59 KAREN [facility] Famotidine 10 mg 01/18/22 10:00 01/19/22 21:09 Famotidine 10 Mg Tab PO 10 mg BID [facility] Administration Sodium Chloride 100 mls @ 999 mls/hr 01/18/22 07:30 Nacl 0.9% IV KAREN PRN Hypotension Insulin Human Lispro 0 unit 01/18/22 00:00 01/20/22 05:34 Insulin Lispro 100 Unit/Ml SUB-Q Not Given Q6HR [facility] Protocol Labetalol HCl 10 mg 01/19/22 09:17 01/20/22 05:31 Labetalol 20 Mg/4 Ml Inj IV 10 mg Q4HR PRN Administration sbp > 160 Morphine Sulfate 2 mg 01/17/22 22:11 Morphine 2 Mg/1 Ml Inj IV Q4H PRN Pain, Moderate (4-6) Morphine Sulfate 4 mg 01/17/22 22:11 Morphine 4 Mg/1 Ml Inj IV Q4H PRN Pain , Severe (7-10) Naloxone HCl 0.1 mg 01/17/22 22:08 Naloxone 0.4 Mg/1 Ml Inj IV Q2MIN PRN Res Rate </= 8 or 02 SAT < 92% Ondansetron HCl 4 mg 01/17/22 22:11 Ondansetron 4 Mg/2 Ml Inj IV Q8H PRN Nausea And Vomiting Sodium Chloride 10 ml 01/18/22 10:00 01/19/22 21:10 Sodium Chloride 0.9% 10 Ml Flush Syringe IV 10 ml BID BASSAM Administration Sodium Chloride 10 ml 01/17/22 22:11 01/20/22 00:17 Sodium Chloride 0.9% 10 Ml Flush Syringe IV 10 ml PRN PRN Administration LINE FLUSH Nutrition/Malnutrition Assess - Dietary Evaluation Nutrition/Malnutrition Findings: Nutrition Notes Start: 01/18/22 12:54 Freq: Status: Active Protocol: Document 01/18/22 12:54 GEOFFREY (Rec: 01/18/22 13:00 GEOFFREY [id number]) Nutrition Notes Need for Assessment generated from: MD Order,modeling agent,MST, Education Initial or Follow up Assessment Current Diagnosis CKD (stage V CKD),Diabetes, Hypertension,Hyperlipidemia Other Pertinent Diagnosis ESRD (newly diagnosed) Current Diet NPO Labs/Tests BUN 53 Cr 6.9 Pertinent Medications Reviewed Height 6 ft 2 in Weight 85.7 kg Edwards Body Weight (kg) 86.36 BMI 24.3 Weight Status Appropriate Subjective/Other Information RD consulted for diet education; pt also screened for malnutrition risk. Vascular surgeon consulted for vascular access for initiation of HD. Pt with hostile mood per RN report. Burn Absent Trauma Absent Minimum of two criteria No #1 Nutrition Diagnosis Altered nutrition-related laboratory values Etiology newly diagnosed ESRD As Evidenced by Signs and Symptoms elevated BUN and Cr labs Is patient on ventilator? No Is Patient Ambulatory and/or Out of Bed Yes REE-([place]-St. Jeor-ambulatory/OOB) [ [id number] [id number]] Calculation Used for Recommendations [place] Jeor Additional Notes Pro needs >1.2g/kg: >103g/day Fluid needs 1-1.5L/day Nutrition Intervention Change Diet Order: Diet advancement when medically feasible Goal #1 Advance diet to meet nutrient needs Anticipated Discharge Needs: Renal, CHO-controlled diet Follow-Up By: 01/21/22 Additional Comments F/U: diet advancement, diet education needs (new dialysis)
[2022-01-20] MEDS: amLODIPine 10 MG TAB PO SCH (09:51)
[2022-01-20] MEDS: FAMOTIDINE 10 MG TAB PO SCH ×2 (09:51→23:00)
--- NOTE | 2022-01-20 14:43 | Progress Note ---
Assessment and Plan - Patient Problems (1) Hyperkalemia Current Visit: Yes Status: Acute Plan to address problem: Hyperkalemia due to advanced chronic kidney disease. Potassium has improved. Hemodialysis again tomorrow (2) Metabolic acidosis Current Visit: Yes Status: Acute Plan to address problem: Uremic acidosis. Start p.o. sodium bicarbonate. Improved with dialysis. (3) Chronic kidney disease, stage 5 Current Visit: Yes Status: Acute Plan to address problem: Patient with hyperkalemia, metabolic acidosis and mild fluid overload. Patient noncompliance with office visits. Status post permacath placement and initial dialysis yesterday which patient tolerated with no complications. Hemodialysis again on Friday. network manager has been consulted to assist with outpatient dialysis placement. (4) Anemia of chronic disease Current Visit: Yes Status: Acute Plan to address problem: Check iron stores. Start erythropoiesis stimulating agent. Follow-up hemoglobin (5) Type 2 diabetes mellitus with diabetic chronic kidney disease Current Visit: Yes Status: Resolved Plan to address problem: Blood sugar management by primary attending (6) Hypertensive chronic kidney disease with stage 5 chronic kidney disease or end stage renal disease Current Visit: Yes Status: Acute Plan to address problem: Follow-up blood pressure on current medications Subjective Date of service: 01/20/22 Principal diagnosis: Chronic kidney disease stage V Interval history: Patient seen lying in bed. No complaints. No chest pain, shortness of breath, nausea or vomiting. Objective - Exam Narrative Exam: Middle-aged -[place] male lying in bed in no acute distress HEENT: NCAT, pink oral mucous membrane Neck: Supple, no venous distention CVS: S1S2 RRR with no murmur, rub or gallop Chest: Clear to auscultation Abdomen: Protuberant, soft, nontender, no organomegaly, bowel sounds are present Extremities: No edema Genitourinary deferred Skin warm and dry Neuro: Awake, alert no focal deficits - Vital Signs Vital signs: Vital Signs - 12hr 01/20/22 01/20/22 01/20/22 04:21 08:30 10:00 Temperature 98.1 F 97.8 F Pulse Rate 75 82 Respiratory 18 18 18 Rate Blood Pressure 165/87 158/71 O2 Sat by Pulse 96 100 98 Oximetry 01/20/22 12:00 Temperature Pulse Rate 79 Respiratory Rate Blood Pressure O2 Sat by Pulse Oximetry - Lab 01/18/22 04:36 01/19/22 03:54 Most recent lab results Calcium 7.9 mg/dL (8.4-10.2) L 01/19/22 03:54 Phosphorus 4.70 mg/dL (2.5-4.5) H 01/19/22 03:54 Magnesium 1.70 mg/dL (1.7-2.3) 01/19/22 03:54 Medications & Allergies - Medications Allergies/Adverse Reactions: Allergies No Known Allergies Allergy (Verified 01/17/22 13:24) Home Medications: Home Medications Medication Instructions Recorded Confirmed Last Taken Type Glimepiride 1 mg PO DAILY 01/19/22 01/19/22 01/17/22 History Lipitor 20 mg PO HS 01/19/22 01/19/22 01/17/22 History Losartan 50 mg PO DAILY 01/19/22 01/19/22 01/17/22 History amLODIPine 5 mg PO DAILY 01/19/22 01/19/22 01/17/22 History calcitrioL 0.25 mg PO DAILY 01/19/22 01/19/22 01/17/22 History Active Medications: Generic Name Dose Route Start Last Admin Trade Name Freq PRN Reason Stop Dose Admin Acetaminophen 650 mg 01/17/22 22:11 01/19/22 09:29 Acetaminophen 325 Mg Tab PO 650 mg Q4H PRN Administration Pain MILD(1-3)/Fever >100.5/COSTA Albuterol 2.5 mg 01/17/22 22:11 Albuterol 2.5 Mg/3 Ml Nebu IH Q3HRT PRN Shortness Of Breath Amlodipine Besylate 10 mg 01/20/22 10:00 01/20/22 09:51 Amlodipine 10 Mg Tab PO 10 mg QDAY BASSAM Administration Dextrose 50 ml 01/17/22 22:50 Dextrose 50% In Water (25gm) 50 Ml Syringe IV Q30MIN PRN Hypoglycemia Protocol Epoetin [place]-epbx 10,000 unit 01/18/22 08:00 Epoetin [place]-Epbx 10,000 Unit/1 Ml Vial SUB-Q 01/25/22 07:59 KAREN BASSAM Famotidine 10 mg 01/18/22 10:00 01/20/22 09:51 Famotidine 10 Mg Tab PO 10 mg BID BASSAM Administration Sodium Chloride 100 mls @ 999 mls/hr 01/18/22 07:30 Nacl 0.9% IV KAREN PRN Hypotension Insulin Human Lispro 0 unit 01/18/22 00:00 01/20/22 05:34 Insulin Lispro 100 Unit/Ml SUB-Q Not Given Q6HR [facility] Protocol Labetalol HCl 10 mg 01/19/22 09:17 01/20/22 05:31 Labetalol 20 Mg/4 Ml Inj IV 10 mg Q4HR PRN Administration sbp > 160 Morphine Sulfate 2 mg 01/17/22 22:11 Morphine 2 Mg/1 Ml Inj IV Q4H PRN Pain, Moderate (4-6) Morphine Sulfate 4 mg 01/17/22 22:11 Morphine 4 Mg/1 Ml Inj IV Q4H PRN Pain , Severe (7-10) Naloxone HCl 0.1 mg 01/17/22 22:08 Naloxone 0.4 Mg/1 Ml Inj IV Q2MIN PRN Res Rate </= 8 or 02 SAT < 92% Ondansetron HCl 4 mg 01/17/22 22:11 Ondansetron 4 Mg/2 Ml Inj IV Q8H PRN Nausea And Vomiting Sodium Chloride 10 ml 01/18/22 10:00 01/20/22 09:51 Sodium Chloride 0.9% 10 Ml Flush Syringe IV 10 ml BID BASSAM Administration Sodium Chloride 10 ml 01/17/22 22:11 01/20/22 00:17 Sodium Chloride 0.9% 10 Ml Flush Syringe IV 10 ml PRN PRN Administration LINE FLUSH
[2022-01-20 15:27] LABS: Calcium 8.1 mg/dL (8.4-10.2)
[2022-01-21] MEDS: INSULIN LISPRO 100 UNIT/ML SUB-Q SCH ×2 (00:25→06:52)
--- NOTE | 2022-01-21 11:30 | Discharge Summary ---
Providers - Providers Date of Admission: 01/18/22 12:59 Attending physician: LUIS WRIGHT MD 01/17/22 21:24 Consult to Physician [CONS] Urgent Comment: Consulting Provider: KEENAN ESPINAL Physician Instructions: Reason For Exam: emiliana esrd 01/17/22 21:54 Consult to Physician [CONS] Routine Comment: Consulting Provider: ANGELITO BRYANT Physician Instructions: Reason For Exam: End-stage renal disease, renal request permacath 01/17/22 22:50 Consult to Dietitian/Nutrition [CONS] Routine Physician Instructions: Reason For Exam: Reason for Consult: Diet education 01/18/22 08:14 Consult to Case Management [CONS] Routine Services Needed at Discharge: Other Notified:: case management Comment:: Arrange outpatient dialysis at [facility] dialysis clinic Primary care physician: KEENAN ESPINAL Hospitalization Reason for admission: abnormal labs, hyperkalemia Condition: Good Hospital course: History of present illness: 56-year-old gentleman with history of hypertension, high cholesterol, diabetes and renal insufficiency, who was instructed to come to the emergency room because of abnormal outpatient laboratory studies. The patient reports that he was recently diagnosed with chronic renal insufficiency, and is currently following up with nephrology, Dr. Espinal, as well as outpatient vascular surgery, [facility] vascular [place]. He is not currently on hemodialysis. He reports that he recently had outpatient laboratory studies obtained, reportedly they were abnormal, and he was instructed to present to the emergency room. The patient currently denies headache, neck pain, chest pain, abdominal pain, shortness of breath, nausea, vomiting, diarrhea, and hematemesis of bright red blood per rectum. He does report intermittent bubbles in his urine, as well as protein in his urine. 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 He does endorse intermittent lower extremity swelling, and lower foot cramping, which is intermittent. In the emergency room patient is found to have BUN of 55 and creatinine 7.1, potassium 5.6, bicarb 18 and anion gap 17. Subsequently Case discussed with Dr. Espinal will see the patient in the morning for hemodialysis we also consult vascular surgery for vascular access. Hospital course: 01/18: VSS. Vascular surgery consulted for vascular access for dialysis. Nephrology following, recommendations noted. Discussed with CM regarding dialysis chair for patient for when he will eventually be discharged outpatient. 01/19: S/p tunneled HD cath placement. K=5.5 on am labs. Will likely get corrected with HD. Will follow along with nephrology plan. CM working on dialysis chair set up. Anticipate d/c on Friday. 01/20: Awaiting am labs, given kionex by nephrology yesterday. Plan is for dialysis friday. CM working on dialysis chair. 01/21: Dialysis planned today. Medically clear for discharge otherwise. Discharge pending HD chair arrangement. He was advised to follow-up outpatient with Dr. Espinal and Dr. Rider. Assessment and Plan: (1) ESRD (end stage renal disease) Status: Acute Plan to address problem: With the patient to the medical telemetry. N.p.o. after midnight. nephrology for evaluation. Avoid nephrotoxic agents. Consult vascular surgeon for vascular access for hemodialysis. trend serial bmp (2) Hyperkalemia Status: Acute Plan to address problem: Patient already got insulin 8 units IV x1 dose, D50 1 ampoule. Calcium gluconate. Kayexalate 30 g p.o. x1 dose and sodium bicarb. Serial bmp Nephrology evaluation Correction with HD (3) Diabetes Status: Acute Plan to address problem: Accu-Chek every 6 hours with Humalog moderate dose coverage. Diabetic education. (4) Anemia of chronic disease Status: Acute Plan to address problem: Most likely secondary to CKD. Will consult nephrology for erythropoietin. (5) Hypertension Status: Acute Plan to address problem: Hydralazine 10 mg IV every 6 hours as needed. We will continue the home medication. We will monitor the patient closely (6) Metabolic acidosis Status: Acute Plan to address problem: Patient already get phlegm follow-up sodium bicarb. We will consult nephrology for evaluation. Recheck BMP in the morning (7) DVT prophylaxis Status: Acute Plan to address problem: City for DVT prophylaxis. Pepcid 20 mg p.o. twice daily for GI prophylaxis. Patient is a full code #Advance care planning Disease education conducted, care plan discussed, diagnoses discussed, prognosis discussed, patient is full code, patient acknowledges understanding and agree with care plan, +30 minutes. Disposition: HOME / SELF CARE / HOMELESS Final Discharge Diagnosis (Prints w/discharge instructions): ESRD requiring HD. Time spent for discharge: 35 Core Measure Documentation - Palliative Care Palliative Care/ Comfort Measures: Not Applicable - Core Measures Any of the following diagnoses?: none Exam - Physical Exam Narrative exam: Physical Exam: VITAL SIGNS: Reviewed. GENERAL: The patient appears normally developed, Vital signs as documented. HEAD: No signs of head trauma. EYES: Pupils are equal. Extraocular motions intact. EARS: Hearing grossly intact. MOUTH: Oropharynx is normal. NECK: No adenopathy, no JVD. CHEST: s/p right tunneled HD catheter. Chest with clear breath sounds bilaterally. No wheezes, rales, or rhonchi. CARDIAC: Regular rate and rhythm. S1 and S2, without murmurs, gallops, or rubs. VASCULAR: No Edema. Peripheral pulses normal and equal in all extremities. ABDOMEN: Soft, non tender and non distended. No rebound or guarding, and no masses palpated. Bowel Sounds normal. MUSCULOSKELETAL: Good range of motion of all major joints. Extremities without clubbing, cyanosis or edema. NEUROLOGIC EXAM: Alert and oriented x 4. no focal sensory or strength deficits. PSYCHIATRIC: Mood normal. SKIN: detail exam as documented in skin assessment - Constitutional Vitals: Temp Pulse Resp BP Pulse Ox 98.7 F 80 18 156/85 99 01/21/22 09:51 01/21/22 11:05 01/21/22 09:51 01/21/22 11:05 01/21/22 09:51 Plan Follow up with: KEENAN ESPINAL MD [Primary Care Provider] - 7 Days ANGELITO RIDER MD [Staff Physician] - 7 Days
--- NOTE | 2022-01-21 11:36 | Progress Note ---
Assessment and Plan - Patient Problems (1) Hyperkalemia Current Visit: Yes Status: Acute Plan to address problem: Corrected with hemodialysis. Counseled patient on the importance of maintaining a low potassium diet. (2) Chronic kidney disease, stage 5 Current Visit: Yes Status: Chronic Plan to address problem: Patient has progressed to chronic kidney disease stage V requiring the initiation of dialysis during this admission. Permacath placed and is f unctioning well without any issues. Patient is tolerating his initial hemodialysis treatments well. Case management assistance in order to further help place patient at an outpatient dialysis facility for further dialysis needs. (3) Hypertensive chronic kidney disease with stage 5 chronic kidney disease or end stage renal disease Current Visit: Yes Status: Chronic Plan to address problem: Monitor blood pressure is under current management. (4) Metabolic acidosis Current Visit: Yes Status: Acute Plan to address problem: Addressing with hemodialysis at this time. No need to continue oral sodium bicarbonate at this time as he has started hemodialysis. (5) Diabetes Current Visit: No Status: Chronic Plan to address problem: Diabetes management per primary attending. Subjective Date of service: 01/21/22 Principal diagnosis: Chronic kidney disease stage V Interval history: No acute issues this morning. Patient was seen at the dialysis unit receiving his second treatment. He seems to be tolerating well. Pending case management to help with outpatient placement for further dialysis needs. Objective - Vital Signs Vital signs: Vital Signs - 12hr 01/21/22 01/21/22 01/21/22 00:03 04:00 04:45 Temperature 98.2 F 98.3 F Pulse Rate 78 81 81 Respiratory 18 18 Rate Blood Pressure Blood Pressure 169/99 172/86 [Right] O2 Sat by Pulse 98 98 Oximetry O2 Sat by Pulse Oximetry [ Bilateral] 01/21/22 01/21/22 01/21/22 07:13 09:15 09:30 Temperature 98.1 F Pulse Rate 75 71 70 Respiratory 17 Rate Blood Pressure 173/92 165/59 172/91 Blood Pressure [Right] O2 Sat by Pulse 97 Oximetry O2 Sat by Pulse Oximetry [ Bilateral] 01/21/22 01/21/22 01/21/22 09:45 09:51 10:00 Temperature 98.7 F Pulse Rate 73 75 71 Respiratory 18 Rate Blood Pressure 170/94 176/95 177/92 Blood Pressure [Right] O2 Sat by Pulse Oximetry O2 Sat by Pulse 99 Oximetry [ Bilateral] 01/21/22 01/21/22 01/21/22 10:15 10:30 10:45 Temperature Pulse Rate 73 70 80 Respiratory Rate Blood Pressure 160/90 166/88 153/91 Blood Pressure [Right] O2 Sat by Pulse Oximetry O2 Sat by Pulse Oximetry [ Bilateral] 01/21/22 01/21/22 11:00 11:15 Temperature Pulse Rate 80 74 Respiratory Rate Blood Pressure 156/85 163/88 Blood Pressure [Right] O2 Sat by Pulse Oximetry O2 Sat by Pulse Oximetry [ Bilateral] - General Appearance General appearance: well-developed, appears stated age EENT: ATNC Neck: no JVD, no thyromegaly Respiratory: Present: Clear to Ascultation Cardiology: regular Gastrointestinal: normal Integumentary: no rash Neurologic: no focal deficit, alert and oriented x3 Musculoskeletal: deferred Psychiatric: cooperative - Lab 01/18/22 04:36 01/20/22 14:30 Most recent lab results Calcium 8.1 mg/dL (8.4-10.2) L 01/20/22 14:30 Phosphorus 4.70 mg/dL (2.5-4.5) H 01/19/22 03:54 Magnesium 1.70 mg/dL (1.7-2.3) 01/19/22 03:54 - Allied health notes Allied health notes reviewed: nursing Medications & Allergies - Medications Allergies/Adverse Reactions: Allergies No Known Allergies Allergy (Verified 01/17/22 13:24) Home Medications: Home Medications Medication Instructions Recorded Confirmed Last Taken Type Glimepiride 1 mg PO DAILY 01/19/22 01/19/22 01/17/22 History Lipitor 20 mg PO HS 01/19/22 01/19/22 01/17/22 History Losartan 50 mg PO DAILY 01/19/22 01/19/22 01/17/22 History amLODIPine 5 mg PO DAILY 01/19/22 01/19/22 01/17/22 History calcitrioL 0.25 mg PO DAILY 01/19/22 01/19/22 01/17/22 History Active Medications: Generic Name Dose Route Start Last Admin Trade Name Freq PRN Reason Stop Dose Admin Acetaminophen 650 mg 01/17/22 22:11 01/19/22 09:29 Acetaminophen 325 Mg Tab PO 650 mg Q4H PRN Administration Pain MILD(1-3)/Fever >100.5/COSTA Albuterol 2.5 mg 01/17/22 22:11 Albuterol 2.5 Mg/3 Ml Nebu IH Q3HRT PRN Shortness Of Breath Amlodipine Besylate 10 mg 01/20/22 10:00 01/20/22 09:51 Amlodipine 10 Mg Tab PO 10 mg QDAY BASSAM Administration Dextrose 50 ml 01/17/22 22:50 Dextrose 50% In Water (25gm) 50 Ml Syringe IV Q30MIN PRN Hypoglycemia Protocol Epoetin [place]-epbx 10,000 unit 01/18/22 08:00 01/21/22 10:10 Epoetin [place]-Epbx 10,000 Unit/1 Ml Vial SUB-Q 01/25/22 07:59 10,000 unit KAREN BASSAM Administration Famotidine 10 mg 01/18/22 10:00 01/20/22 23:00 Famotidine 10 Mg Tab PO 10 mg BID BASSAM Administration Sodium Chloride 100 mls @ 999 mls/hr 01/18/22 07:30 Nacl 0.9% IV KAREN PRN Hypotension Insulin Human Lispro 0 unit 01/18/22 00:00 01/21/22 06:52 Insulin Lispro 100 Unit/Ml SUB-Q Not Given Q6HR COUNT INCLUDES THE [facility] Protocol Labetalol HCl 10 mg 01/19/22 09:17 01/20/22 17:43 Labetalol 20 Mg/4 Ml Inj IV 10 mg Q4HR PRN Administration sbp > 160 Morphine Sulfate 2 mg 01/17/22 22:11 Morphine 2 Mg/1 Ml Inj IV Q4H PRN Pain, Moderate (4-6) Morphine Sulfate 4 mg 01/17/22 22:11 Morphine 4 Mg/1 Ml Inj IV Q4H PRN Pain , Severe (7-10) Naloxone HCl 0.1 mg 01/17/22 22:08 Naloxone 0.4 Mg/1 Ml Inj IV Q2MIN PRN Res Rate </= 8 or 02 SAT < 92% Ondansetron HCl 4 mg 01/17/22 22:11 Ondansetron 4 Mg/2 Ml Inj IV Q8H PRN Nausea And Vomiting Sodium Chloride 10 ml 01/18/22 10:00 01/20/22 23:01 Sodium Chloride 0.9% 10 Ml Flush Syringe IV 10 ml BID BASSAM Administration Sodium Chloride 10 ml 01/17/22 22:11 01/20/22 00:17 Sodium Chloride 0.9% 10 Ml Flush Syringe IV 10 ml PRN PRN Administration LINE FLUSH
[2022-01-21 15:24] LABS: Calcium 8.5 mg/dL (8.4-10.2)
--- NOTE | 2022-01-21 15:46 | XRay Report ---
CHEST 1 VIEW 01/21/2022 1:22 PM INDICATION / CLINICAL INFORMATION: TB. COMPARISON: None available. FINDINGS: SUPPORT DEVICES: Right IJ central venous catheter tip projects over the superior cavoatrial junction. HEART / MEDIASTINUM: No significant abnormality. LUNGS / PLEURA: No significant pulmonary or pleural abnormality. No pneumothorax. ADDITIONAL FINDINGS: No significant additional findings. IMPRESSION: 1. No acute findings. No radiographic evidence of pulmonary tuberculosis. Signer Name: Mart Sanchez MD Signed: 01/21/2022 3:42 PM Workstation Name: [id number]
--- NOTE | 2022-01-21 16:57 | Vascular Lab Report ---
DOPPLER ULTRASOUND UPPER EXTREMITY VENOUS MAPPING, BILATERAL INDICATION / CLINICAL INFORMATION: vein mapping for dialysis access TECHNIQUE: Grayscale, color and spectral Doppler imaging of the venous system of the right and left u pper extremities was performed. COMPARISON: None available. FINDINGS: RIGHT UPPER EXTREMITY: Brachial Artery (Diameter, in cm): Not measured. Velocity is 98.3 cm/s. Radial Artery (Diameter, in cm): 0.2. Velocity is 105 cm/s. Basilic Vein (Diameter, in cm): - Upper Arm: Not visualized - Mid Arm: 0.3 - Lower Arm: 0.4 - Antecubital: 0.3 - Upper Forearm: 0.2 - Mid Forearm: 0.3 - Distal Forearm: 0.2 Cephalic Vein (Diameter, in cm): - Upper Arm: 0.3 - Mid Arm: 0.3 - Lower Arm: 0.2 - Antecubital: 0.3 - Upper Forearm: 0.3 - Mid Forearm: 0.2 - Distal Forearm: 0.2 LEFT UPPER EXTREMITY: Brachial Artery (Diameter, in cm): Not measured. Velocity is 101 cm/s. Radial Artery (Diameter, in cm): 0.2. Velocity is 92.5 cm/s. Basilic Vein (Diameter, in cm): - Upper Arm: 0.2 - Mid Arm: 0.3 - Lower Arm: 0.3 - Antecubital: 0.3 - Upper Forearm: 0.2 - Mid Forearm: 0.2 - Distal Forearm: 0.2 Cephalic Vein (Diameter, in cm): - Upper Arm: 0.3 - Mid Arm: 0.2 - Lower Arm: 0.2 - Antecubital: 0.3 - Upper Forearm: 0.3 - Mid Forearm: 0.3 - Distal Forearm: 0.2 Additional Findings: Occlusive superficial thrombus is visualized in the left cephalic vein from the level of the mid biceps to the distal forearm. IMPRESSION: 1. Upper extremity venous mapping as above. 2. Occlusive superficial thrombus within the left cephalic vein, as above. Scribed by: Clarisa Garcia RDMS, RVT, CHERELLE Scribed: 01/21/2022 3:37 PM I have reviewed the images, agree with this report, and edited this report as needed. Signer Name: Andrea Smart MD Signed: 01/21/2022 4:53 PM Workstation Name: [id number]
[2022-01-21] MEDS: FAMOTIDINE 10 MG TAB PO SCH (23:53)
[2022-01-22] MEDS: INSULIN LISPRO 100 UNIT/ML SUB-Q SCH ×3 (00:47→12:55)
[2022-01-22] MEDS: amLODIPine 10 MG TAB PO SCH (10:25)
[2022-01-22] MEDS: FAMOTIDINE 10 MG TAB PO SCH ×2 (10:25→21:43)
--- NOTE | 2022-01-22 12:34 | Progress Note ---
Assessment and Plan Assessment and plan: 56-year-old gentleman with history of hypertension, high cholesterol, diabetes and renal insufficiency, who was instructed to come to the emergency room because of abnormal outpatient laboratory studies. The patient reports that he was recently diagnosed with chronic renal insufficiency, and is currently following up with nephrology, Dr. Senior, as well as outpatient vascular surgery, [facility]. He is not currently on hemodialysis. He reports that he recently had outpatient laboratory studies obtained, reportedly they were abnormal, and he was instructed to present to the emergency room. In the emergency room patient is found to have BUN of 55 and creatinine 7.1, potassium 5.6, bicarb 18 and anion gap 17. Subsequently Case discussed with Dr. Senior will see the patient in the morning for hemodialysis we also consult vascular surgery for vascular access. The patient was admitted with diagnosis below ESRD Hyperkalemia Diabetes mellitus type 2 Anemia of chronic disease Hypertension Metabolic acidosis Hospital course: 01/18: VSS. Vascular surgery consulted for vascular access for dialysis. Nephrology following, recommendations noted. Discussed with CM regarding dialysis chair for patient for when he will eventually be discharged outpatient. 01/19: S/p tunneled HD cath placement. K=5.5 on am labs. Will likely get corrected with HD. Will follow along with nephrology plan. CM working on dialysis chair set up. Anticipate d/c on Friday. 01/20: Awaiting am labs, given kionex by nephrology yesterday. Plan is for dialysis friday. CM working on dialysis chair. 01/21: Dialysis planned today. Medically clear for discharge otherwise. Discharge pending HD chair arrangement. He was advised to follow-up outpatient with Dr. Senior and Dr. Rider. 01/22: Awaiting hemodialysis chair arrangement History Interval history: No new issues overnight Hospitalist Physical - Constitutional Vitals: Temp Pulse Resp BP Pulse Ox 97.8 F 81 17 158/61 95 01/22/22 08:36 01/22/22 10:25 01/22/22 08:36 01/22/22 10:25 01/22/22 08:36 General appearance: Present: no acute distress - EENT Eyes: Present: PERRL, EOM intact ENT: hearing intact, clear oral mucosa, dentition normal - Neck Neck: Present: supple, normal ROM - Respiratory Respiratory effort: normal Respiratory: bilateral: CTA - Cardiovascular Rhythm: regular Heart Sounds: Present: S1 & S2. Absent: gallop, rub - Extremities Extremities: no ischemia, No edema, Full ROM - Abdominal General gastrointestinal: soft, non-tender, non-distended, normal bowel sounds - Integumentary Integumentary: Present: clear, warm, dry - Neurologic Neurologic: CNII-XII intact, moves all extremities Results - Labs CBC & Chem 7: 01/18/22 04:36 01/21/22 14:05 Labs: Laboratory Last Values WBC 8.4 K/mm3 (4.5-11.0) 01/18/22 04:36 RBC 2.94 M/mm3 (3.65-5.03) L 01/18/22 04:36 Hgb 8.1 gm/dl (11.8-15.2) L 01/18/22 04:36 Hct 25.4 % (35.5-45.6) L 01/18/22 04:36 MCV 87 fl (84-94) 01/18/22 04:36 MCH 28 pg (28-32) 01/18/22 04:36 MCHC 32 % (32-34) 01/18/22 04:36 RDW 13.2 % (13.2-15.2) 01/18/22 04:36 Plt Count 192 K/mm3 (140-440) 01/18/22 04:36 Eos % (Auto) Assistant Superintendent For Curriculum 01/18/22 04:36 Add Manual Diff Complete 01/18/22 04:36 Total Counted 100 01/18/22 04:36 Seg Neuts % (Manual) 46.0 % (40.0-70.0) 01/18/22 04:36 Band Neutrophils % 0 % 01/18/22 04:36 Lymphocytes % (Manual) 31.0 % (13.4-35.0) 01/18/22 04:36 Reactive Lymphs % (Man) 0 % 01/18/22 04:36 Monocytes % (Manual) 1.0 % (0.0-7.3) 01/18/22 04:36 Eosinophils % (Manual) 22.0 % (0.0-4.3) H 01/18/22 04:36 Basophils % (Manual) 0 % (0.0-1.8) 01/18/22 04:36 Metamyelocytes % 0 % 01/18/22 04:36 Myelocytes % 0 % 01/18/22 04:36 Promyelocytes % 0 % 01/18/22 04:36 Blast Cells % 0 % 01/18/22 04:36 Nucleated RBC % Not Reportable 01/18/22 04:36 Seg Neutrophils # Man 3.9 K/mm3 (1.8-7.7) 01/18/22 04:36 Band Neutrophils # 0.0 K/mm3 01/18/22 04:36 Lymphocytes # (Manual) 2.6 K/mm3 (1.2-5.4) 01/18/22 04:36 Abs React Lymphs (Man) 0.0 K/mm3 01/18/22 04:36 Monocytes # (Manual) 0.1 K/mm3 (0.0-0.8) 01/18/22 04:36 Eosinophils # (Manual) 1.8 K/mm3 (0.0-0.4) H 01/18/22 04:36 Basophils # (Manual) 0.0 K/mm3 (0.0-0.1) 01/18/22 04:36 Metamyelocytes # 0.0 K/mm3 01/18/22 04:36 Myelocytes # 0.0 K/mm3 01/18/22 04:36 Promyelocytes # 0.0 K/mm3 01/18/22 04:36 Blast Cells # 0.0 K/mm3 01/18/22 04:36 WBC Morphology Not Reportable 01/18/22 04:36 Hypersegmented Neuts Not Reportable 01/18/22 04:36 Hyposegmented Neuts Not Reportable 01/18/22 04:36 Hypogranular Neuts Not Reportable 01/18/22 04:36 Smudge Cells Not Reportable 01/18/22 04:36 Toxic Granulation Not Reportable 01/18/22 04:36 Toxic Vacuolation Not Reportable 01/18/22 04:36 Dohle Bodies Not Reportable 01/18/22 04:36 Pelger-Huet Anomaly Not Reportable 01/18/22 04:36 Eddie Rods Not Reportable 01/18/22 04:36 Platelet Estimate Consistent w auto 01/18/22 04:36 Clumped Platelets Not Reportable 01/18/22 04:36 Plt Clumps, EDTA Not Reportable 01/18/22 04:36 Large Platelets Not Reportable 01/18/22 04:36 Giant Platelets Not Reportable 01/18/22 04:36 Platelet Satelliting Not Reportable 01/18/22 04:36 Plt Morphology Comment Not Reportable 01/18/22 04:36 RBC Morphology Not Reportable 01/18/22 04:36 Dimorphic RBCs Not Reportable 01/18/22 04:36 Polychromasia Not Reportable 01/18/22 04:36 Hypochromasia Not Reportable 01/18/22 04:36 Poikilocytosis Not Reportable 01/18/22 04:36 Anisocytosis Not Reportable 01/18/22 04:36 Microcytosis Not Reportable 01/18/22 04:36 Macrocytosis Not Reportable 01/18/22 04:36 Spherocytes Not Reportable 01/18/22 04:36 Pappenheimer Bodies Not Reportable 01/18/22 04:36 Sickle Cells Not Reportable 01/18/22 04:36 Target Cells Not Reportable 01/18/22 04:36 Tear Drop Cells Not Reportable 01/18/22 04:36 Ovalocytes Not Reportable 01/18/22 04:36 Helmet Cells Not Reportable 01/18/22 04:36 [place] Bodies Not Reportable 01/18/22 04:36 Reading Rings Not Reportable 01/18/22 04:36 [place] Cells Not Reportable 01/18/22 04:36 Bite Cells Not Reportable 01/18/22 04:36 Crenated Cell Not Reportable 01/18/22 04:36 Elliptocytes Not Reportable 01/18/22 04:36 Acanthocytes (Spur) Not Reportable 01/18/22 04:36 Rouleaux Not Reportable 01/18/22 04:36 Hemoglobin C Crystals Not Reportable 01/18/22 04:36 Schistocytes Not Reportable 01/18/22 04:36 Malaria parasites Not Reportable 01/18/22 04:36 Santosh Bodies Not Reportable 01/18/22 04:36 Hem Pathologist Commnt No 01/18/22 04:36 Sodium 137 mmol/L (137-145) 01/21/22 14:05 Potassium 4.1 mmol/L (3.6-5.0) 01/21/22 14:05 Chloride 97.4 mmol/L (98-107) L 01/21/22 14:05 Carbon Dioxide 28 mmol/L (22-30) 01/21/22 14:05 Anion Gap 16 mmol/L 01/21/22 14:05 BUN 23 mg/dL (9-20) H 01/21/22 14:05 Creatinine 4.2 mg/dL (0.8-1.3) H 01/21/22 14:05 Estimated GFR 18 ml/min 01/21/22 14:05 BUN/Creatinine Ratio 5 % 01/21/22 14:05 Glucose 179 mg/dL (75-100) H 01/21/22 14:05 POC Glucose 179 mg/dL (70-105) H 01/22/22 05:28 Calcium 8.5 mg/dL (8.4-10.2) 01/21/22 14:05 Phosphorus 4.70 mg/dL (2.5-4.5) H 01/19/22 03:54 Magnesium 1.70 mg/dL (1.7-2.3) 01/19/22 03:54 Iron 51 ug/dL (49-181) 01/18/22 04:36 Ferritin 45.8 ng/mL (30.0-300.0) 01/18/22 04:36 Total Bilirubin 0.30 mg/dL (0.1-1.2) 01/17/22 13:32 AST 18 units/L (5-40) 01/17/22 13:32 ALT 16 units/L (7-56) 01/17/22 13:32 Alkaline Phosphatase 97 units/L (35-129) 01/17/22 13:32 Total Protein 6.6 g/dL (6.3-8.2) 01/17/22 13:32 Albumin 4.3 g/dL (3.9-5) 01/17/22 13:32 Albumin/Globulin Ratio 1.9 % 01/17/22 13:32 SARS-CoV-2 (PCR) Negative (Negative) 01/22/22 10:05 Hepatitis A IgM Ab Non-reactive (NonReactive) 01/18/22 04:36 Hep Bs Antigen Non-reactive (Negative) 01/18/22 04:36 Hep B Core IgM Ab Non-reactive (NonReactive) 01/18/22 04:36 Hepatitis C Antibody Non-reactive (NonReactive) 01/18/22 04:36 Lopez/IV: Voiding Method Toilet Active Medications - Current Medications Current Medications: Generic Name Dose Route Start Last Admin Trade Name Freq PRN Reason Stop Dose Admin Acetaminophen 650 mg 01/17/22 22:11 01/19/22 09:29 Acetaminophen 325 Mg Tab PO 650 mg Q4H PRN Administration Pain MILD(1-3)/Fever >100.5/COSTA Albuterol 2.5 mg 01/17/22 22:11 Albuterol 2.5 Mg/3 Ml Nebu IH Q3HRT PRN Shortness Of Breath Amlodipine Besylate 10 mg 01/20/22 10:00 01/22/22 10:25 Amlodipine 10 Mg Tab PO 10 mg QDAY BASSAM Administration Dextrose 50 ml 01/17/22 22:50 Dextrose 50% In Water (25gm) 50 Ml Syringe IV Q30MIN PRN Hypoglycemia Protocol Epoetin [place]-epbx 10,000 unit 01/18/22 08:00 01/21/22 10:10 Epoetin [place]-Epbx 10,000 Unit/1 Ml Vial SUB-Q 01/25/22 07:59 10,000 unit KAREN BASSAM Administration Famotidine 10 mg 01/18/22 10:00 01/22/22 10:25 Famotidine 10 Mg Tab PO 10 mg BID BASSAM Administration Sodium Chloride 100 mls @ 999 mls/hr 01/18/22 07:30 Nacl 0.9% IV KAREN PRN Hypotension Insulin Human Lispro 0 unit 01/18/22 00:00 01/22/22 06:49 Insulin Lispro 100 Unit/Ml SUB-Q 2 unit Q6HR BASSAM Administration Protocol Labetalol HCl 10 mg 01/19/22 09:17 01/21/22 23:53 Labetalol 20 Mg/4 Ml Inj IV 10 mg Q4HR PRN Administration sbp > 160 Morphine Sulfate 2 mg 01/17/22 22:11 Morphine 2 Mg/1 Ml Inj IV Q4H PRN Pain, Moderate (4-6) Morphine Sulfate 4 mg 01/17/22 22:11 Morphine 4 Mg/1 Ml Inj IV Q4H PRN Pain , Severe (7-10) Naloxone HCl 0.1 mg 01/17/22 22:08 Naloxone 0.4 Mg/1 Ml Inj IV Q2MIN PRN Res Rate </= 8 or 02 SAT < 92% Ondansetron HCl 4 mg 01/17/22 22:11 Ondansetron 4 Mg/2 Ml Inj IV Q8H PRN Nausea And Vomiting Sodium Chloride 10 ml 01/18/22 10:00 01/22/22 10:26 Sodium Chloride 0.9% 10 Ml Flush Syringe IV 10 ml BID BASSAM Administration Sodium Chloride 10 ml 01/17/22 22:11 01/20/22 00:17 Sodium Chloride 0.9% 10 Ml Flush Syringe IV 10 ml PRN PRN Administration LINE FLUSH Nutrition/Malnutrition Assess - Dietary Evaluation Nutrition/Malnutrition Findings: Nutrition Notes Start: 01/18/22 12:54 Freq: Status: Active Protocol: Document 01/21/22 10:19 REINALDO (Rec: 01/21/22 10:36 REINALDO [id number]) Nutrition Notes Initial or Follow up Reassessment Current Diagnosis CKD (stage V CKD),Diabetes, Hypertension,Hyperlipidemia Other Pertinent Diagnosis ESRD+HD, Anemia. Current Diet Renal Diet (since B 01/19). Labs/Tests 01/21: BUN 40, Crea 6.9, Glu 126, Ca 8.1. Pertinent Medications 01/21: Nutritionally unremarkable. 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 No body weight Change reported in 3 days. Weight Status Appropriate Subjective/Other Information RD consult for routine F/U on dietary advancement. Diet advanced to PO, No reports available on Pt's PO intake of meals at the time, will assess at F/U. Pt is on Room Air, O2 saturation @ 98%, according to Physical Assessment History notes. HD started on 01/19, well tolerated, according to Progress notes. Percent of energy/protein needs met: Prescribed Renal Diet provides for energy/protein needs (2, 072 Kcal/77 g) during LOS. Burn Absent Trauma Absent GI Symptoms None Food Allergy No Skin Integrity/Comment Assessment WNL. 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 Diagnosis Progress(for reassessment Continues documentation) Is patient on ventilator? No Is Patient Ambulatory and/or Out of Bed Yes REE-([facility]-ambulatory/OOB) [ [id number] [id number]] Calculation Used for Recommendations [facility] Additional Notes Protein: >1.2 g/Kg ABW; >103 g /day. Fluids: 1-1.5 L/day, or as per MD. Nutrition Intervention Change Diet Order: Continue Renal Diet as tolerated. Goal #1 Adjust the dietary intervention to better serve Pt's needs and clinical conditions during LOS. Follow-Up By: 01/28/22 Additional Comments Continue monitoring food tolerance, %PO intake of meals , and BM.
--- NOTE | 2022-01-22 13:03 | Progress Note ---
Assessment and Plan - Patient Problems (1) Hyperkalemia Current Visit: Yes Status: Acute Plan to address problem: Corrected with hemodialysis. Counseled patient on the importance of maintaining a low potassium diet. (2) Chronic kidney disease, stage 5 Current Visit: Yes Status: Chronic Plan to address problem: Patient has progressed to chronic kidney disease stage V requiring the initiation of dialysis during this admission. Permacath placed and is f unctioning well without any issues. Patient is tolerating his initial hemodialysis treatments well. Case management assistance in order to further help place patient at an outpatient dialysis facility for further dialysis needs. (3) Hypertensive chronic kidney disease with stage 5 chronic kidney disease or end stage renal disease Current Visit: Yes Status: Chronic Plan to address problem: Monitor blood pressure is under current management. (4) Metabolic acidosis Current Visit: Yes Status: Acute Plan to address problem: Addressing with hemodialysis at this time. No need to continue oral sodium bicarbonate at this time as he has started hemodialysis. (5) Diabetes Current Visit: No Status: Chronic Plan to address problem: Diabetes management per primary attending. Subjective Date of service: 01/22/22 Principal diagnosis: Chronic kidney disease stage V Interval history: no acute issues this morning. Pending placement at outpatient dialysis facility. Tolerated hemodialysis well yesterday without issues. Objective - Vital Signs Vital signs: Vital Signs - 12hr 01/22/22 01/22/22 01/22/22 03:55 04:00 08:36 Temperature 98.2 F 97.8 F Pulse Rate 83 76 81 Respiratory 14 17 Rate Blood Pressure 142/85 158/83 O2 Sat by Pulse 98 95 Oximetry 01/22/22 10:25 Temperature Pulse Rate 81 Respiratory Rate Blood Pressure 158/61 O2 Sat by Pulse Oximetry - General Appearance General appearance: well-developed, appears stated age EENT: ATNC Neck: no JVD Respiratory: Present: Clear to Ascultation, Normal Exam Cardiology: regular Gastrointestinal: normal Integumentary: no rash Neurologic: no focal deficit, alert and oriented x3 Musculoskeletal: deferred Psychiatric: cooperative - Lab 01/18/22 04:36 01/21/22 14:05 Most recent lab results Calcium 8.5 mg/dL (8.4-10.2) 01/21/22 14:05 Phosphorus 4.70 mg/dL (2.5-4.5) H 01/19/22 03:54 Magnesium 1.70 mg/dL (1.7-2.3) 01/19/22 03:54 - Allied health notes Allied health notes reviewed: nursing Medications & Allergies - Medications Allergies/Adverse Reactions: Allergies No Known Allergies Allergy (Verified 01/17/22 13:24) Home Medications: Home Medications Medication Instructions Recorded Confirmed Last Taken Type Glimepiride 1 mg PO DAILY 01/19/22 01/19/22 01/17/22 History Lipitor 20 mg PO HS 01/19/22 01/19/22 01/17/22 History Losartan 50 mg PO DAILY 01/19/22 01/19/22 01/17/22 History amLODIPine 5 mg PO DAILY 01/19/22 01/19/22 01/17/22 History calcitrioL 0.25 mg PO DAILY 01/19/22 01/19/22 01/17/22 History Active Medications: Generic Name Dose Route Start Last Admin Trade Name Freq PRN Reason Stop Dose Admin Acetaminophen 650 mg 01/17/22 22:11 01/19/22 09:29 Acetaminophen 325 Mg Tab PO 650 mg Q4H PRN Administration Pain MILD(1-3)/Fever >100.5/COSTA Albuterol 2.5 mg 01/17/22 22:11 Albuterol 2.5 Mg/3 Ml Nebu IH Q3HRT PRN Shortness Of Breath Amlodipine Besylate 10 mg 01/20/22 10:00 01/22/22 10:25 Amlodipine 10 Mg Tab PO 10 mg QDAY BASSAM Administration Dextrose 50 ml 01/17/22 22:50 Dextrose 50% In Water (25gm) 50 Ml Syringe IV Q30MIN PRN Hypoglycemia Protocol Epoetin [place]-epbx 10,000 unit 01/18/22 08:00 01/21/22 10:10 Epoetin [place]-Epbx 10,000 Unit/1 Ml Vial SUB-Q 01/25/22 07:59 10,000 unit KAREN BASSAM Administration Famotidine 10 mg 01/18/22 10:00 01/22/22 10:25 Famotidine 10 Mg Tab PO 10 mg BID BASSAM Administration Sodium Chloride 100 mls @ 999 mls/hr 01/18/22 07:30 Nacl 0.9% IV KAREN PRN Hypotension Insulin Human Lispro 0 unit 01/18/22 00:00 01/22/22 12:55 Insulin Lispro 100 Unit/Ml SUB-Q Not Given Q6HR [facility] Protocol Labetalol HCl 10 mg 01/19/22 09:17 01/21/22 23:53 Labetalol 20 Mg/4 Ml Inj IV 10 mg Q4HR PRN Administration sbp > 160 Morphine Sulfate 2 mg 01/17/22 22:11 Morphine 2 Mg/1 Ml Inj IV Q4H PRN Pain, Moderate (4-6) Morphine Sulfate 4 mg 01/17/22 22:11 Morphine 4 Mg/1 Ml Inj IV Q4H PRN Pain , Severe (7-10) Naloxone HCl 0.1 mg 01/17/22 22:08 Naloxone 0.4 Mg/1 Ml Inj IV Q2MIN PRN Res Rate </= 8 or 02 SAT < 92% Ondansetron HCl 4 mg 01/17/22 22:11 Ondansetron 4 Mg/2 Ml Inj IV Q8H PRN Nausea And Vomiting Sodium Chloride 10 ml 01/18/22 10:00 01/22/22 10:26 Sodium Chloride 0.9% 10 Ml Flush Syringe IV 10 ml BID BASSAM Administration Sodium Chloride 10 ml 01/17/22 22:11 01/20/22 00:17 Sodium Chloride 0.9% 10 Ml Flush Syringe IV 10 ml PRN PRN Administration LINE FLUSH
[2022-01-23] MEDS: INSULIN LISPRO 100 UNIT/ML SUB-Q SCH ×6 (00:52→19:00)
[2022-01-23 08:50] LABS: Hematocrit 29.1 % (35.5-45.6); Hemoglobin 9.2 gm/dl (11.8-15.2); Mean Corpuscular HGB Conc 32 % (32-34); Mean Corpuscular Volume 87 fl (84-94); Platelet Count 174 K/mm3 (140-440); Red Blood Count 3.35 M/mm3 (3.65-5.03); Red Cell Distribution Width 13.3 % (13.2-15.2)
--- NOTE | 2022-01-23 12:06 | Progress Note ---
Assessment and Plan Assessment and plan: 56-year-old gentleman with history of hypertension, high cholesterol, diabetes and renal insufficiency, who was instructed to come to the emergency room because of abnormal outpatient laboratory studies. The patient reports that he was recently diagnosed with chronic renal insufficiency, and is currently following up with nephrology, Dr. Senior, as well as outpatient vascular surgery, [facility]. He is not currently on hemodialysis. He reports that he recently had outpatient laboratory studies obtained, reportedly they were abnormal, and he was instructed to present to the emergency room. In the emergency room patient is found to have BUN of 55 and creatinine 7.1, potassium 5.6, bicarb 18 and anion gap 17. Subsequently Case discussed with Dr. Senior will see the patient in the morning for hemodialysis we also consult vascular surgery for vascular access. The patient was admitted with diagnosis below ESRD Hyperkalemia Diabetes mellitus type 2 Anemia of chronic disease Hypertension Metabolic acidosis Hospital course: 01/18: VSS. Vascular surgery consulted for vascular access for dialysis. Nephrology following, recommendations noted. Discussed with CM regarding dialysis chair for patient for when he will eventually be discharged outpatient. 01/19: S/p tunneled HD cath placement. K=5.5 on am labs. Will likely get corrected with HD. Will follow along with nephrology plan. CM working on dialysis chair set up. Anticipate d/c on Friday. 01/20: Awaiting am labs, given kionex by nephrology yesterday. Plan is for dialysis friday. CM working on dialysis chair. 01/21: Dialysis planned today. Medically clear for discharge otherwise. Discharge pending HD chair arrangement. He was advised to follow-up outpatient with Dr. Senior and Dr. Rider. 01/22: Awaiting hemodialysis chair arrangement 01/23: Patient has progressed to chronic kidney disease stage V requiring the initiation of dialysis during this admission. Permacath placed and is functioning well without any issues. Patient is tolerating his initial hemodialysis treatments well. Case management assistance in order to further help place patient at an outpatient dialysis facility for further dialysis needs. History Interval history: No new issues overnight Hospitalist Physical - Constitutional Vitals: Temp Pulse Resp BP Pulse Ox 97.9 F 85 17 161/88 96 01/23/22 07:54 01/23/22 04:03 01/23/22 07:54 01/23/22 07:54 01/23/22 04:03 General appearance: Present: no acute distress - EENT Eyes: Present: PERRL, EOM intact ENT: hearing intact, clear oral mucosa, dentition normal - Neck Neck: Present: supple, normal ROM - Respiratory Respiratory effort: normal Respiratory: bilateral: CTA - Cardiovascular Rhythm: regular Heart Sounds: Present: S1 & S2. Absent: gallop, rub - Extremities Extremities: no ischemia, No edema, Full ROM - Abdominal General gastrointestinal: soft, non-tender, non-distended, normal bowel sounds - Integumentary Integumentary: Present: clear, warm, dry - Neurologic Neurologic: CNII-XII intact, moves all extremities Results - Labs CBC & Chem 7: 01/23/22 Unknown 01/21/22 14:05 Labs: Laboratory Last Values WBC 7.8 K/mm3 (4.5-11.0) 01/23/22 Unknown RBC 3.35 M/mm3 (3.65-5.03) L 01/23/22 Unknown Hgb 9.2 gm/dl (11.8-15.2) L 01/23/22 Unknown Hct 29.1 % (35.5-45.6) L 01/23/22 Unknown MCV 87 fl (84-94) 01/23/22 Unknown MCH 28 pg (28-32) 01/23/22 Unknown MCHC 32 % (32-34) 01/23/22 Unknown RDW 13.3 % (13.2-15.2) 01/23/22 Unknown Plt Count 174 K/mm3 (140-440) 01/23/22 Unknown Eos % (Auto) Pasting Machine Offbearer 01/23/22 Unknown Add Manual Diff Complete 01/18/22 04:36 Total Counted 100 01/18/22 04:36 Seg Neuts % (Manual) 46.0 % (40.0-70.0) 01/18/22 04:36 Band Neutrophils % 0 % 01/18/22 04:36 Lymphocytes % (Manual) 31.0 % (13.4-35.0) 01/18/22 04:36 Reactive Lymphs % (Man) 0 % 01/18/22 04:36 Monocytes % (Manual) 1.0 % (0.0-7.3) 01/18/22 04:36 Eosinophils % (Manual) 22.0 % (0.0-4.3) H 01/18/22 04:36 Basophils % (Manual) 0 % (0.0-1.8) 01/18/22 04:36 Metamyelocytes % 0 % 01/18/22 04:36 Myelocytes % 0 % 01/18/22 04:36 Promyelocytes % 0 % 01/18/22 04:36 Blast Cells % 0 % 01/18/22 04:36 Nucleated RBC % Not Reportable 01/18/22 04:36 Seg Neutrophils # Man 3.9 K/mm3 (1.8-7.7) 01/18/22 04:36 Band Neutrophils # 0.0 K/mm3 01/18/22 04:36 Lymphocytes # (Manual) 2.6 K/mm3 (1.2-5.4) 01/18/22 04:36 Abs React Lymphs (Man) 0.0 K/mm3 01/18/22 04:36 Monocytes # (Manual) 0.1 K/mm3 (0.0-0.8) 01/18/22 04:36 Eosinophils # (Manual) 1.8 K/mm3 (0.0-0.4) H 01/18/22 04:36 Basophils # (Manual) 0.0 K/mm3 (0.0-0.1) 01/18/22 04:36 Metamyelocytes # 0.0 K/mm3 01/18/22 04:36 Myelocytes # 0.0 K/mm3 01/18/22 04:36 Promyelocytes # 0.0 K/mm3 01/18/22 04:36 Blast Cells # 0.0 K/mm3 01/18/22 04:36 WBC Morphology Not Reportable 01/18/22 04:36 Hypersegmented Neuts Not Reportable 01/18/22 04:36 Hyposegmented Neuts Not Reportable 01/18/22 04:36 Hypogranular Neuts Not Reportable 01/18/22 04:36 Smudge Cells Not Reportable 01/18/22 04:36 Toxic Granulation Not Reportable 01/18/22 04:36 Toxic Vacuolation Not Reportable 01/18/22 04:36 Dohle Bodies Not Reportable 01/18/22 04:36 Pelger-Huet Anomaly Not Reportable 01/18/22 04:36 Eddie Rods Not Reportable 01/18/22 04:36 Platelet Estimate Consistent w auto 01/18/22 04:36 Clumped Platelets Not Reportable 01/18/22 04:36 Plt Clumps, EDTA Not Reportable 01/18/22 04:36 Large Platelets Not Reportable 01/18/22 04:36 Giant Platelets Not Reportable 01/18/22 04:36 Platelet Satelliting Not Reportable 01/18/22 04:36 Plt Morphology Comment Not Reportable 01/18/22 04:36 RBC Morphology Not Reportable 01/18/22 04:36 Dimorphic RBCs Not Reportable 01/18/22 04:36 Polychromasia Not Reportable 01/18/22 04:36 Hypochromasia Not Reportable 01/18/22 04:36 Poikilocytosis Not Reportable 01/18/22 04:36 Anisocytosis Not Reportable 01/18/22 04:36 Microcytosis Not Reportable 01/18/22 04:36 Macrocytosis Not Reportable 01/18/22 04:36 Spherocytes Not Reportable 01/18/22 04:36 Pappenheimer Bodies Not Reportable 01/18/22 04:36 Sickle Cells Not Reportable 01/18/22 04:36 Target Cells Not Reportable 01/18/22 04:36 Tear Drop Cells Not Reportable 01/18/22 04:36 Ovalocytes Not Reportable 01/18/22 04:36 Helmet Cells Not Reportable 01/18/22 04:36 [place] Bodies Not Reportable 01/18/22 04:36 [place] Rings Not Reportable 01/18/22 04:36 [place] Cells Not Reportable 01/18/22 04:36 Bite Cells Not Reportable 01/18/22 04:36 Crenated Cell Not Reportable 01/18/22 04:36 Elliptocytes Not Reportable 01/18/22 04:36 Acanthocytes (Spur) Not Reportable 01/18/22 04:36 Rouleaux Not Reportable 01/18/22 04:36 Hemoglobin C Crystals Not Reportable 01/18/22 04:36 Schistocytes Not Reportable 01/18/22 04:36 Malaria parasites Not Reportable 01/18/22 04:36 Santosh Bodies Not Reportable 01/18/22 04:36 Hem Pathologist Commnt No 01/18/22 04:36 Sodium 137 mmol/L (137-145) 08/29/22 14:05 Potassium 4.1 mmol/L (3.6-5.0) 01/21/22 14:05 Chloride 97.4 mmol/L (98-107) L 01/21/22 14:05 Carbon Dioxide 28 mmol/L (22-30) 01/21/22 14:05 Anion Gap 16 mmol/L 01/21/22 14:05 BUN 23 mg/dL (9-20) H 01/21/22 14:05 Creatinine 4.2 mg/dL (0.8-1.3) H 01/21/22 14:05 Estimated GFR 18 ml/min 01/21/22 14:05 BUN/Creatinine Ratio 5 % 01/21/22 14:05 Glucose 179 mg/dL (75-100) H 01/21/22 14:05 POC Glucose 219 mg/dL (70-105) H 01/23/22 05:18 Calcium 8.5 mg/dL (8.4-10.2) 01/21/22 14:05 Phosphorus 4.70 mg/dL (2.5-4.5) H 01/19/22 03:54 Magnesium 1.70 mg/dL (1.7-2.3) 01/19/22 03:54 Iron 51 ug/dL (49-181) 01/18/22 04:36 Ferritin 45.8 ng/mL (30.0-300.0) 01/18/22 04:36 Total Bilirubin 0.30 mg/dL (0.1-1.2) 01/17/22 13:32 AST 18 units/L (5-40) 01/17/22 13:32 ALT 16 units/L (7-56) 01/17/22 13:32 Alkaline Phosphatase 97 units/L (35-129) 01/17/22 13:32 Total Protein 6.6 g/dL (6.3-8.2) 01/17/22 13:32 Albumin 4.3 g/dL (3.9-5) 01/17/22 13:32 Albumin/Globulin Ratio 1.9 % 01/17/22 13:32 SARS-CoV-2 (PCR) Negative (Negative) 01/22/22 10:05 Hepatitis A IgM Ab Non-reactive (NonReactive) 01/18/22 04:36 Hep Bs Antigen Non-reactive (Negative) 01/18/22 04:36 Hep B Core IgM Ab Non-reactive (NonReactive) 01/18/22 04:36 Hepatitis C Antibody Non-reactive (NonReactive) 01/18/22 04:36 Lopez/IV: Voiding Method Toilet Active Medications - Current Medications Current Medications: Generic Name Dose Route Start Last Admin Trade Name Freq PRN Reason Stop Dose Admin Acetaminophen 650 mg 01/17/22 22:11 01/19/22 09:29 Acetaminophen 325 Mg Tab PO 650 mg Q4H PRN Administration Pain MILD(1-3)/Fever >100.5/COSTA Albuterol 2.5 mg 01/17/22 22:11 Albuterol 2.5 Mg/3 Ml Nebu IH Q3HRT PRN Shortness Of Breath Amlodipine Besylate 10 mg 01/20/22 10:00 01/22/22 10:25 Amlodipine 10 Mg Tab PO 10 mg QDAY BASSAM Administration Dextrose 50 ml 01/17/22 22:50 Dextrose 50% In Water (25gm) 50 Ml Syringe IV Q30MIN PRN Hypoglycemia Protocol Epoetin [place]-epbx 10,000 unit 01/18/22 08:00 01/21/22 10:10 Epoetin [place]-Epbx 10,000 Unit/1 Ml Vial SUB-Q 01/25/22 07:59 10,000 unit KAREN BASSAM Administration Famotidine 10 mg 01/18/22 10:00 01/22/22 21:43 Famotidine 10 Mg Tab PO 10 mg BID BASSAM Administration Sodium Chloride 100 mls @ 999 mls/hr 01/18/22 07:30 Nacl 0.9% IV KAREN PRN Hypotension Insulin Human Lispro 0 unit 01/18/22 00:00 01/23/22 06:28 Insulin Lispro 100 Unit/Ml SUB-Q 3 unit Q6HR BASSAM Administration Protocol Labetalol HCl 10 mg 01/19/22 09:17 01/21/22 23:53 Labetalol 20 Mg/4 Ml Inj IV 10 mg Q4HR PRN Administration sbp > 160 Morphine Sulfate 2 mg 01/17/22 22:11 Morphine 2 Mg/1 Ml Inj IV Q4H PRN Pain, Moderate (4-6) Morphine Sulfate 4 mg 01/17/22 22:11 Morphine 4 Mg/1 Ml Inj IV Q4H PRN Pain , Severe (7-10) Naloxone HCl 0.1 mg 01/17/22 22:08 Naloxone 0.4 Mg/1 Ml Inj IV Q2MIN PRN Res Rate </= 8 or 02 SAT < 92% Ondansetron HCl 4 mg 01/17/22 22:11 Ondansetron 4 Mg/2 Ml Inj IV Q8H PRN Nausea And Vomiting Sodium Chloride 10 ml 01/18/22 10:00 01/23/22 10:15 Sodium Chloride 0.9% 10 Ml Flush Syringe IV Not Given BID BASSAM Sodium Chloride 10 ml 01/17/22 22:11 01/20/22 00:17 Sodium Chloride 0.9% 10 Ml Flush Syringe IV 10 ml PRN PRN Administration LINE FLUSH Nutrition/Malnutrition Assess - Dietary Evaluation Nutrition/Malnutrition Findings: Nutrition Notes Start: 01/18/22 12:54 Freq: Status: Active Protocol: Document 01/21/22 10:19 REINALDO (Rec: 01/21/22 10:36 REINALDO [email or web address]) Nutrition Notes Initial or Follow up Reassessment Current Diagnosis CKD (stage V CKD),Diabetes, Hypertension,Hyperlipidemia Other Pertinent Diagnosis ESRD+HD, Anemia. Current Diet Renal Diet (since B 01/19). Labs/Tests 01/21: BUN 40, Crea 6.9, Glu 126, Ca 8.1. Pertinent Medications 01/21: Nutritionally unremarkable. Height 6 ft 2 in Weight 85.7 kg [facility] Body Weight (kg) 86.36 BMI 24.3 Intake Prior to Admission Good Weight change and time frame Pt states being unsure if loss body weight [employer]. No body weight Change reported in 3 days. Weight Status Appropriate Subjective/Other Information RD consult for routine F/U on dietary advancement. Diet advanced to PO, No reports available on Pt's PO intake of meals at the time, will assess at F/U. Pt is on Room Air, O2 saturation @ 98%, according to Physical Assessment History notes. HD started on 01/19, well tolerated, according to Progress notes. Percent of energy/protein needs met: Prescribed Renal Diet provides for energy/protein needs (2, 072 Kcal/77 g) during LOS. Burn Absent Trauma Absent GI Symptoms None Food Allergy No Skin Integrity/Comment Assessment WNL. Minimum of two criteria No Fluid Accumulation N/A Reduced Body Specialist Strength N/A (non-severe) Protein-Calorie Malnutrition N\A #1 Nutrition Diagnosis Altered nutrition-related laboratory values Comments: 01/21: BUN 40, Crea 6.9, Glu 126, Ca 8.1. Diagnosis Progress(for reassessment Continues documentation) Is patient on ventilator? No Is Patient Ambulatory and/or Out of Bed Yes REE-([facility]-ambulatory/OOB) [ [id number] [id number]] Calculation Used for Recommendations [facility] Additional Notes Protein: >1.2 g/Kg ABW; >103 g /day. Fluids: 1-1.5 L/day, or as per MD. Nutrition Intervention Change Diet Order: Continue Renal Diet as tolerated. Goal #1 Adjust the dietary intervention to better serve Pt's needs and clinical conditions during LOS. Follow-Up By: 01/28/22 Additional Comments Continue monitoring food tolerance, %PO intake of meals , and BM.
--- NOTE | 2022-01-23 16:20 | Progress Note ---
Assessment and Plan - Patient Problems (1) Hyperkalemia Current Visit: Yes Status: Acute Plan to address problem: Corrected with hemodialysis. Counseled patient on the importance of maintaining a low potassium diet. (2) Chronic kidney disease, stage 5 Current Visit: Yes Status: Chronic Plan to address problem: Patient has progressed to chronic kidney disease stage V requiring the initiation of dialysis during this admission. Permacath placed and is f unctioning well without any issues. Patient is tolerating his initial hemodialysis treatments well. Case management assistance in order to further help place patient at an outpatient dialysis facility for further dialysis needs. Would suggest attempting placement at [facility] or [facility]. (3) Hypertensive chronic kidney disease with stage 5 chronic kidney disease or end stage renal disease Current Visit: Yes Status: Chronic Plan to address problem: Monitor blood pressure is under current management. (4) Metabolic acidosis Current Visit: Yes Status: Acute Plan to address problem: Addressing with hemodialysis at this time. No need to continue oral sodium bicarbonate at this time as he has started hemodialysis. (5) Diabetes Current Visit: No Status: Chronic Plan to address problem: Diabetes management per primary attending. Subjective Date of service: 01/23/22 Principal diagnosis: Chronic kidney disease stage V Interval history: Seen at dialysis unit. Tolerating treatment well. Objective - Vital Signs Vital signs: Vital Signs - 12hr 01/23/22 01/23/22 01/23/22 07:54 10:00 10:50 Temperature 97.9 F 98.2 F Pulse Rate 91 H Respiratory 17 20 Rate Blood Pressure 161/88 177/77 O2 Sat by Pulse 98 Oximetry O2 Sat by Pulse 100 Oximetry [ Bilateral] 01/23/22 12:00 Temperature Pulse Rate 78 Respiratory Rate Blood Pressure O2 Sat by Pulse Oximetry O2 Sat by Pulse Oximetry [ Bilateral] - General Appearance General appearance: well-developed, appears stated age EENT: ATNC, PERRL Neck: no JVD, no thyromegaly Respiratory: Present: Clear to Ascultation, Normal Exam Cardiology: regular Gastrointestinal: normal Integumentary: no rash, warm and dry Neurologic: no focal deficit, alert and oriented x3 Musculoskeletal: deferred Psychiatric: mood/affect appropriate - Lab 01/23/22 Unknown 01/21/22 14:05 Most recent lab results Calcium 8.5 mg/dL (8.4-10.2) 01/21/22 14:05 Phosphorus 4.70 mg/dL (2.5-4.5) H 01/19/22 03:54 Magnesium 1.70 mg/dL (1.7-2.3) 01/19/22 03:54 - Allied health notes Allied health notes reviewed: nursing Medications & Allergies - Medications Allergies/Adverse Reactions: Allergies No Known Allergies Allergy (Verified 01/17/22 13:24) Home Medications: Home Medications Medication Instructions Recorded Confirmed Last Taken Type Glimepiride 1 mg PO DAILY 01/19/22 01/19/22 01/17/22 History Lipitor 20 mg PO HS 01/19/22 01/19/22 01/17/22 History Losartan 50 mg PO DAILY 01/19/22 01/19/22 01/17/22 History amLODIPine 5 mg PO DAILY 01/19/22 01/19/22 01/17/22 History calcitrioL 0.25 mg PO DAILY 01/19/22 01/19/22 01/17/22 History Active Medications: Generic Name Dose Route Start Last Admin Trade Name Freq PRN Reason Stop Dose Admin Acetaminophen 650 mg 01/17/22 22:11 01/19/22 09:29 Acetaminophen 325 Mg Tab PO 650 mg Q4H PRN Administration Pain MILD(1-3)/Fever >100.5/COSTA Albuterol 2.5 mg 01/17/22 22:11 Albuterol 2.5 Mg/3 Ml Nebu IH Q3HRT PRN Shortness Of Breath Amlodipine Besylate 10 mg 01/20/22 10:00 01/22/22 10:25 Amlodipine 10 Mg Tab PO 10 mg QDAY BASSAM Administration Dextrose 50 ml 01/17/22 22:50 Dextrose 50% In Water (25gm) 50 Ml Syringe IV Q30MIN PRN Hypoglycemia Protocol Epoetin [place]-epbx 10,000 unit 01/18/22 08:00 01/21/22 10:10 Epoetin [place]-Epbx 10,000 Unit/1 Ml Vial SUB-Q 01/25/22 07:59 10,000 unit KAREN BASSAM Administration Famotidine 10 mg 01/18/22 10:00 01/22/22 21:43 Famotidine 10 Mg Tab PO 10 mg BID BASSAM Administration Sodium Chloride 100 mls @ 999 mls/hr 01/18/22 07:30 Nacl 0.9% IV KAREN PRN Hypotension Insulin Human Lispro 0 unit 01/18/22 00:00 01/23/22 06:28 Insulin Lispro 100 Unit/Ml SUB-Q 3 unit Q6HR BASSAM Administration Protocol Labetalol HCl 10 mg 01/19/22 09:17 01/21/22 23:53 Labetalol 20 Mg/4 Ml Inj IV 10 mg Q4HR PRN Administration sbp > 160 Morphine Sulfate 2 mg 01/17/22 22:11 Morphine 2 Mg/1 Ml Inj IV Q4H PRN Pain, Moderate (4-6) Morphine Sulfate 4 mg 01/17/22 22:11 Morphine 4 Mg/1 Ml Inj IV Q4H PRN Pain , Severe (7-10) Naloxone HCl 0.1 mg 01/17/22 22:08 Naloxone 0.4 Mg/1 Ml Inj IV Q2MIN PRN Res Rate </= 8 or 02 SAT < 92% Ondansetron HCl 4 mg 01/17/22 22:11 Ondansetron 4 Mg/2 Ml Inj IV Q8H PRN Nausea And Vomiting Sodium Chloride 10 ml 01/18/22 10:00 01/23/22 10:15 Sodium Chloride 0.9% 10 Ml Flush Syringe IV Not Given BID BASSAM Sodium Chloride 10 ml 01/17/22 22:11 01/20/22 00:17 Sodium Chloride 0.9% 10 Ml Flush Syringe IV 10 ml PRN PRN Administration LINE FLUSH
[2022-01-23] MEDS: FAMOTIDINE 10 MG TAB PO SCH ×3 (16:26→21:24)
[2022-01-23] MEDS: amLODIPine 10 MG TAB PO SCH ×2 (16:27→16:28)
[2022-01-23 16:37] LABS: Total Cells Counted 100
[2022-01-23 16:38] LABS: Basophils % (Manual) 0 % (0.0-1.8); Platelet Estimate Consistent w Auto; RBC Morphology Normal
[2022-01-23 17:49] LABS: Calcium 8.6 mg/dL (8.4-10.2)
[2022-01-24] MEDS: INSULIN LISPRO 100 UNIT/ML SUB-Q SCH ×4 (00:33→17:42)
[2022-01-24] MEDS: FAMOTIDINE 10 MG TAB PO SCH ×2 (09:00→21:26)
[2022-01-24] MEDS: amLODIPine 10 MG TAB PO SCH (09:00)
[2022-01-24 11:31] LABS: Hematocrit 29.3 % (35.5-45.6); Hemoglobin 9.5 gm/dl (11.8-15.2); Mean Corpuscular HGB Conc 32 % (32-34); Mean Corpuscular Volume 86 fl (84-94); Platelet Count 191 K/mm3 (140-440); Red Blood Count 3.42 M/mm3 (3.65-5.03); Red Cell Distribution Width 13.1 % (13.2-15.2)
[2022-01-24 11:48] LABS: Calcium 8.9 mg/dL (8.4-10.2)
[2022-01-24 12:48] LABS: Anisocytosis 1+; Platelet Estimate Consistent w Auto; Total Cells Counted 100
--- NOTE | 2022-01-24 14:27 | Progress Note ---
Assessment and Plan - Patient Problems (1) Hyperkalemia Current Visit: Yes Status: Acute Plan to address problem: Corrected with hemodialysis. Counseled patient on the importance of maintaining a low potassium diet. (2) Chronic kidney disease, stage 5 Current Visit: Yes Status: Chronic Plan to address problem: Patient has progressed to chronic kidney disease stage V requiring the initiation of dialysis during this admission. Permacath placed and is f unctioning well without any issues. Patient is tolerating his initial hemodialysis treatments well. Case management assistance in order to further help place patient at an outpatient dialysis facility for further dialysis needs. Would suggest attempting placement at [facility] or [facility]. (3) Hypertensive chronic kidney disease with stage 5 chronic kidney disease or end stage renal disease Current Visit: Yes Status: Chronic Plan to address problem: Monitor blood pressure is under current management. (4) Metabolic acidosis Current Visit: Yes Status: Acute Plan to address problem: Addressing with hemodialysis at this time. No need to continue oral sodium bicarbonate at this time as he has started hemodialysis. (5) Diabetes Current Visit: No Status: Chronic Plan to address problem: Diabetes management per primary attending. Subjective Date of service: 01/24/22 Principal diagnosis: Chronic kidney disease stage V Interval history: no acute issues this morning. Pending placement at outpatient dialysis facility. Objective - Vital Signs Vital signs: Vital Signs - 12hr 01/24/22 01/24/22 01/24/22 03:57 08:58 09:00 Temperature 98.1 F 98.7 F Pulse Rate 76 73 76 Respiratory 18 18 Rate Blood Pressure 141/78 140/76 Blood Pressure 140/76 [Right] O2 Sat by Pulse 98 100 Oximetry 01/24/22 01/24/22 10:00 12:00 Temperature Pulse Rate 77 Respiratory Rate Blood Pressure Blood Pressure [Right] O2 Sat by Pulse 98 Oximetry - General Appearance General appearance: well-developed, appears stated age EENT: ATNC Neck: no JVD, no thyromegaly Respiratory: Present: Clear to Ascultation, Normal Exam Cardiology: regular Gastrointestinal: normal Integumentary: no rash, warm and dry Neurologic: no focal deficit, alert and oriented x3 Musculoskeletal: deferred Psychiatric: cooperative - Lab 01/24/22 11:12 01/24/22 11:12 Most recent lab results Calcium 8.9 mg/dL (8.4-10.2) 01/24/22 11:12 Phosphorus 4.70 mg/dL (2.5-4.5) H 01/19/22 03:54 Magnesium 1.70 mg/dL (1.7-2.3) 01/19/22 03:54 - Allied health notes Allied health notes reviewed: nursing Medications & Allergies - Medications Allergies/Adverse Reactions: Allergies No Known Allergies Allergy (Verified 01/17/22 13:24) Home Medications: Home Medications Medication Instructions Recorded Confirmed Last Taken Type Glimepiride 1 mg PO DAILY 01/19/22 01/19/22 01/17/22 History Lipitor 20 mg PO HS 01/19/22 01/19/22 01/17/22 History Losartan 50 mg PO DAILY 01/19/22 01/19/22 01/17/22 History amLODIPine 5 mg PO DAILY 01/19/22 01/19/22 01/17/22 History calcitrioL 0.25 mg PO DAILY 01/19/22 01/19/22 01/17/22 History Active Medications: Generic Name Dose Route Start Last Admin Trade Name Freq PRN Reason Stop Dose Admin Acetaminophen 650 mg 01/17/22 22:11 01/19/22 09:29 Acetaminophen 325 Mg Tab PO 650 mg Q4H PRN Administration Pain MILD(1-3)/Fever >100.5/COSTA Albuterol 2.5 mg 01/17/22 22:11 Albuterol 2.5 Mg/3 Ml Nebu IH Q3HRT PRN Shortness Of Breath Amlodipine Besylate 10 mg 01/20/22 10:00 01/24/22 09:00 Amlodipine 10 Mg Tab PO 10 mg QDAY ABSSAM Administration Dextrose 50 ml 01/17/22 22:50 Dextrose 50% In Water (25gm) 50 Ml Syringe IV Q30MIN PRN Hypoglycemia Protocol Epoetin [place]io-epbx 10,000 unit 01/18/22 08:00 01/21/22 10:10 Epoetin [place]-Epbx 10,000 Unit/1 Ml Vial SUB-Q 01/25/22 07:59 10,000 unit KAREN BASSAM Administration Famotidine 10 mg 01/18/22 10:00 01/24/22 09:00 Famotidine 10 Mg Tab PO 10 mg BID BASSAM Administration Sodium Chloride 100 mls @ 999 mls/hr 01/18/22 07:30 Nacl 0.9% IV KAREN PRN Hypotension Insulin Human Lispro 0 unit 01/18/22 00:00 01/24/22 12:01 Insulin Lispro 100 Unit/Ml SUB-Q Not Given Q6HR [facility] Protocol Labetalol HCl 10 mg 01/19/22 09:17 01/21/22 23:53 Labetalol 20 Mg/4 Ml Inj IV 10 mg Q4HR PRN Administration sbp > 160 Morphine Sulfate 2 mg 01/17/22 22:11 Morphine 2 Mg/1 Ml Inj IV Q4H PRN Pain, Moderate (4-6) Morphine Sulfate 4 mg 01/17/22 22:11 Morphine 4 Mg/1 Ml Inj IV Q4H PRN Pain , Severe (7-10) Naloxone HCl 0.1 mg 01/17/22 22:08 Naloxone 0.4 Mg/1 Ml Inj IV Q2MIN PRN Res Rate </= 8 or 02 SAT < 92% Ondansetron HCl 4 mg 01/17/22 22:11 Ondansetron 4 Mg/2 Ml Inj IV Q8H PRN Nausea And Vomiting Sodium Chloride 10 ml 01/18/22 10:00 01/24/22 09:01 Sodium Chloride 0.9% 10 Ml Flush Syringe IV 10 ml BID BASSAM Administration Sodium Chloride 10 ml 01/17/22 22:11 01/20/22 00:17 Sodium Chloride 0.9% 10 Ml Flush Syringe IV 10 ml PRN PRN Administration LINE FLUSH
--- NOTE | 2022-01-24 16:15 | Progress Note ---
Assessment and Plan - Patient Problems (1) ESRD (end stage renal disease) Status: Acute Plan to address problem: Waiting for HD chair (2) Hyperkalemia Status: Acute Plan to address problem: Patient already got insulin 8 units IV x1 dose, D50 1 ampoule. Calcium gluconate. Kayexalate 30 g p.o. x1 dose and sodium bicarb. We will monitor the patient closely recheck BMP in the morning. Nephrology evaluation (3) Diabetes Status: Acute Plan to address problem: Accu-Chek every 6 hours with Humalog moderate dose coverage. Diabetic education. (4) Anemia of chronic disease Status: Acute Plan to address problem: Most likely secondary to CKD. Will consult nephrology for erythropoietin. (5) Hypertension Status: Acute Plan to address problem: Hydralazine 10 mg IV every 6 hours as needed. We will continue the home m edication. We will monitor the patient closely (6) Metabolic acidosis Status: Acute Plan to address problem: Patient already get phlegm follow-up sodium bicarb. We will consult nephrology for evaluation. Recheck BMP in the morning (7) DVT prophylaxis Status: Acute Plan to address problem: City for DVT prophylaxis. Pepcid 20 mg p.o. twice daily for GI prophylaxis. Patient is a full code Subjective Date of service: 01/24/22 Principal diagnosis: Chronic kidney disease stage V Interval history: Assessment and Plan Assessment and plan: 56-year-old gentleman with history of hypertension, high cholesterol, diabetes and renal insufficiency, who was instructed to come to the emergency room because of abnormal outpatient laboratory studies. The patient reports that he was recently diagnosed with chronic renal insuffici ency, and is currently following up with nephrology, Dr. Senior, as well as outpatient vascular surgery, [facility] vascular [place]. He is not currently on hemodialysis. He reports that he recently had outpatient laboratory studies obtained, reportedly they were abnormal, and he was instructed to present to the emergency room. In the emergency room patient is found to have BUN of 55 and creatinine 7.1, potassium 5.6, bicarb 18 and anion gap 17. Subsequently Case discussed with Dr. Senior will see the patient in the morning for hemodialysis we also consult vascular surgery for vascular access. The patient was admitted with diagnosis below ESRD Hyperkalemia Diabetes mellitus type 2 Anemia of chronic disease Hypertension Metabolic acidosis Hospital course: 01/18: VSS. Vascular surgery consulted for vascular access for dialysis. Nephrology following, recommendations noted. Discussed with CM regarding dialysis chair for patient for when he will eventually be discharged outpatient. 01/19: S/p tunneled HD cath placement. K=5.5 on am labs. Will likely get corrected with HD. Will follow along with nephrology plan. CM working on dialysis chair set up. Anticipate d/c on Friday. 01/20: Awaiting am labs, given kionex by nephrology yesterday. Plan is for dialysis friday. CM working on dialysis chair. 01/21: Dialysis planned today. Medically clear for discharge otherwise. Discharge pending HD chair arrangement. He was advised to follow-up outpatient with Dr. Senior and Dr. Rider. 01/22: Awaiting hemodialysis chair arrangement 01/23: Patient has progressed to chronic kidney disease stage V requiring the initiation of dialysis during this admission. Permacath placed and is functioning well without any issues. Patient is tolerating his initial he modialysis treatments well. Case management assistance in order to further help place patient at an outpatient dialysis facility for further dialysis needs. 01/24 Waiting for HD chair Objective - Constitutional Vitals: Vital Signs - 12hr 01/24/22 01/24/22 01/24/22 08:58 09:00 10:00 Temperature 98.7 F Pulse Rate 73 76 Respiratory 18 Rate Blood Pressure 140/76 Blood Pressure 140/76 [Right] O2 Sat by Pulse 100 98 Oximetry 01/24/22 12:00 Temperature 98.1 F Pulse Rate 77 Respiratory 18 Rate Blood Pressure Blood Pressure 143/82 [Right] O2 Sat by Pulse 99 Oximetry General appearance: Present: no acute distress, well-nourished - EENT Eyes: PERRL, EOM intact ENT: hearing intact, clear oral mucosa Ears: bilateral: normal - Neck Neck: supple, normal ROM - Respiratory Respiratory effort: normal Respiratory: bilateral: CTA - Breasts Breasts: normal - Cardiovascular Heart rate: 78 Rhythm: regular Heart Sounds: Present: S1 & S2. Absent: gallop, rub Extremities: pulses intact, No edema, normal color, Full ROM - Gastrointestinal General gastrointestinal: Present: soft, non-tender, non-distended, normal bowel sounds - Genitourinary Male genitourinary: normal - Integumentary Integumentary: clear, warm, dry - Musculoskeletal Musculoskeletal: 1, strength equal bilaterally - Neurologic Neurologic: moves all extremities - Psychiatric Psychiatric: memory intact, appropriate mood/affect, intact judgment & insight - Labs CBC & Chem 7: 01/25/22 04:49 01/25/22 04:49 Labs: Abnormal lab results 01/23/22 01/23/22 01/23/22 Range/Units 16:00 16:05 23:50 RBC (3.65-5.03) M/mm3 Hgb (11.8-15.2) gm/dl Hct (35.5-45.6) % RDW (13.2-15.2) % Monocytes % (Manual) (0.0-7.3) % Eosinophils % (Manual) (0.0-4.3) % Eosinophils # (Manual) (0.0-0.4) K/mm3 Chloride 96.7 L (98-107) mmol/L BUN 25 H (9-20) mg/dL Creatinine 3.8 H (0.8-1.3) mg/dL Glucose 280 H (75-100) mg/dL POC Glucose 286 H 201 H (70-105) mg/dL 01/23/22 01/24/22 01/24/22 Range/Units Unknown 05:09 11:12 RBC 3.42 L (3.65-5.03) M/mm3 Hgb 9.5 L (11.8-15.2) gm/dl Hct 29.3 L (35.5-45.6) % RDW 13.1 L (13.2-15.2) % Monocytes % (Manual) 9.0 H (0.0-7.3) % Eosinophils % (Manual) 18.0 H 22.0 H (0.0-4.3) % Eosinophils # (Manual) 1.4 H 1.7 H (0.0-0.4) K/mm3 Chloride (98-107) mmol/L BUN (9-20) mg/dL Creatinine (0.8-1.3) mg/dL Glucose (75-100) mg/dL POC Glucose 194 H (70-105) mg/dL 01/24/22 01/24/22 01/24/22 Range/Units 11:12 12:05 16:06 RBC (3.65-5.03) M/mm3 Hgb (11.8-15.2) gm/dl Hct (35.5-45.6) % RDW (13.2-15.2) % Monocytes % (Manual) (0.0-7.3) % Eosinophils % (Manual) (0.0-4.3) % Eosinophils # (Manual) (0.0-0.4) K/mm3 Chloride 97.3 L (98-107) mmol/L BUN 42 H (9-20) mg/dL Creatinine 5.5 H (0.8-1.3) mg/dL Glucose 211 H (75-100) mg/dL POC Glucose 203 H 219 H (70-105) mg/dL
[2022-01-25] MEDS: INSULIN LISPRO 100 UNIT/ML SUB-Q SCH ×4 (00:03→18:17)
[2022-01-25 05:35] LABS: Hemoglobin 9.1 gm/dl (11.8-15.2); Mean Corpuscular HGB Conc 33 % (32-34); Mean Corpuscular Volume 86 fl (84-94); Platelet Count 186 K/mm3 (140-440); Red Blood Count 3.26 M/mm3 (3.65-5.03)
[2022-01-25 06:28] LABS: Basophils % (Manual) 0 % (0.0-1.8); Platelet Estimate Consistent w Auto; Total Cells Counted 100
--- NOTE | 2022-01-25 09:54 | Progress Note ---
Assessment and Plan - Patient Problems (1) Hyperkalemia Current Visit: Yes Status: Acute Plan to address problem: Corrected with hemodialysis. Counseled patient on the importance of maintaining a low potassium diet. (2) Chronic kidney disease, stage 5 Current Visit: Yes Status: Chronic Plan to address problem: Patient has progressed to chronic kidney disease stage V requiring the initiation of dialysis during this admission. Permacath placed and is f unctioning well without any issues. Patient is tolerating his initial hemodialysis treatments well. Case management assistance in order to further help place patient at an outpatient dialysis facility for further dialysis needs. Would suggest attempting placement at [facility] or [facility]. Continue on inpatient MWF HD schedule. (3) Hypertensive chronic kidney disease with stage 5 chronic kidney disease or end stage renal disease Current Visit: Yes Status: Chronic Plan to address problem: Monitor blood pressure is under current management. (4) Metabolic acidosis Current Visit: Yes Status: Acute Plan to address problem: Addressing with hemodialysis at this time. No need to continue oral sodium bicarbonate at this time as he has started hemodialysis. (5) Diabetes Current Visit: No Status: Chronic Plan to address problem: Diabetes management per primary attending. Subjective Date of service: 01/25/22 Principal diagnosis: Chronic kidney disease stage V Interval history: No acute issues at this time. Patient pending HD today. Working on outpatient dialysis placement. Objective - Vital Signs Vital signs: Vital Signs - 12hr 01/24/22 01/24/22 01/25/22 22:00 23:41 00:31 Temperature 98.4 F Pulse Rate 78 78 Respiratory 18 16 18 Rate Blood Pressure 170/86 165/88 O2 Sat by Pulse 98 97 96 Oximetry 01/25/22 01/25/22 01/25/22 00:38 03:53 04:20 Temperature 98.1 F Pulse Rate 77 71 83 Respiratory 18 Rate Blood Pressure 165/100 O2 Sat by Pulse 98 Oximetry 01/25/22 07:17 Temperature 98.3 F Pulse Rate 77 Respiratory 20 Rate Blood Pressure 129/70 O2 Sat by Pulse 98 Oximetry - General Appearance General appearance: well-developed, appears stated age EENT: ATNC Neck: no JVD, no thyromegaly Respiratory: Present: Clear to Ascultation Cardiology: regular, normal heart rate Gastrointestinal: normal, normoactive bowel sounds Integumentary: no rash, warm and dry Neurologic: no focal deficit, alert and oriented x3 Musculoskeletal: deferred Psychiatric: cooperative - Lab 01/25/22 04:49 01/25/22 04:49 Most recent lab results Calcium 9.0 mg/dL (8.4-10.2) 01/25/22 04:49 Phosphorus 4.70 mg/dL (2.5-4.5) H 01/19/22 03:54 Magnesium 1.70 mg/dL (1.7-2.3) 01/19/22 03:54 - Allied health notes Allied health notes reviewed: nursing Medications & Allergies - Medications Allergies/Adverse Reactions: Allergies No Known Allergies Allergy (Verified 01/17/22 13:24) Home Medications: Home Medications Medication Instructions Recorded Confirmed Last Taken Type Glimepiride 1 mg PO DAILY 01/19/22 01/19/22 01/17/22 History Lipitor 20 mg PO HS 01/19/22 01/19/22 01/17/22 History Losartan 50 mg PO DAILY 01/19/22 01/19/22 01/17/22 History amLODIPine 5 mg PO DAILY 01/19/22 01/19/22 01/17/22 History calcitrioL 0.25 mg PO DAILY 01/19/22 01/19/22 01/17/22 History Active Medications: Generic Name Dose Route Start Last Admin Trade Name Freq PRN Reason Stop Dose Admin Acetaminophen 650 mg 01/17/22 22:11 01/19/22 09:29 Acetaminophen 325 Mg Tab PO 650 mg Q4H PRN Administration Pain MILD(1-3)/Fever >100.5/COSTA Albuterol 2.5 mg 01/17/22 22:11 Albuterol 2.5 Mg/3 Ml Nebu IH Q3HRT PRN Shortness Of Breath Amlodipine Besylate 10 mg 01/20/22 10:00 01/24/22 09:00 Amlodipine 10 Mg Tab PO 10 mg QDAY BASSAM Administration Dextrose 50 ml 01/17/22 22:50 Dextrose 50% In Water (25gm) 50 Ml Syringe IV Q30MIN PRN Hypoglycemia Protocol Famotidine 10 mg 01/18/22 10:00 01/24/22 21:26 Famotidine 10 Mg Tab PO 10 mg BID BASSAM Administration Sodium Chloride 100 mls @ 999 mls/hr 01/18/22 07:30 Nacl 0.9% IV KAREN PRN Hypotension Insulin Human Lispro 0 unit 01/18/22 00:00 01/25/22 00:03 Insulin Lispro 100 Unit/Ml SUB-Q 4 unit Q6HR BASSAM Administration Protocol Labetalol HCl 10 mg 01/19/22 09:17 01/21/22 23:53 Labetalol 20 Mg/4 Ml Inj IV 10 mg Q4HR PRN Administration sbp > 160 Morphine Sulfate 2 mg 01/17/22 22:11 Morphine 2 Mg/1 Ml Inj IV Q4H PRN Pain, Moderate (4-6) Morphine Sulfate 4 mg 01/17/22 22:11 Morphine 4 Mg/1 Ml Inj IV Q4H PRN Pain , Severe (7-10) Naloxone HCl 0.1 mg 01/17/22 22:08 Naloxone 0.4 Mg/1 Ml Inj IV Q2MIN PRN Res Rate </= 8 or 02 SAT < 92% Ondansetron HCl 4 mg 01/17/22 22:11 Ondansetron 4 Mg/2 Ml Inj IV Q8H PRN Nausea And Vomiting Sodium Chloride 10 ml 01/18/22 10:00 01/24/22 21:27 Sodium Chloride 0.9% 10 Ml Flush Syringe IV 10 ml BID BASSAM Administration Sodium Chloride 10 ml 01/17/22 22:11 01/20/22 00:17 Sodium Chloride 0.9% 10 Ml Flush Syringe IV 10 ml PRN PRN Administration LINE FLUSH
--- NOTE | 2022-01-25 10:07 | Progress Note ---
Assessment and Plan Assessment and plan: 56-year-old gentleman with history of hypertension, high cholesterol, diabetes and renal insufficiency, who was instructed to come to the emergency room because of abnormal outpatient laboratory studies. The patient reports that he was recently diagnosed with chronic renal insufficiency, and is currently following up with nephrology, Dr. Senior, as well as outpatient vascular surgery, [facility]. He is not currently on hemodialysis. He reports that he recently had outpatient laboratory studies obtained, reportedly they were abnormal, and he was instructed to present to the emergency room. In the emergency room patient is found to have BUN of 55 and creatinine 7.1, potassium 5.6, bicarb 18 and anion gap 17. Subsequently Case discussed with Dr. Senior will see the patient in the morning for hemodialysis we also consult vascular surgery for vascular access. The patient was admitted with diagnosis below ESRD Hyperkalemia Diabetes mellitus type 2 Anemia of chronic disease Hypertension Metabolic acidosis Hospital course: 01/18: VSS. Vascular surgery consulted for vascular access for dialysis. Nephrology following, recommendations noted. Discussed with CM regarding dialysis chair for patient for when he will eventually be discharged outpatient. 01/19: S/p tunneled HD cath placement. K=5.5 on am labs. Will likely get corrected with HD. Will follow along with nephrology plan. CM working on dialysis chair set up. Anticipate d/c on Friday. 01/20: Awaiting am labs, given kionex by nephrology yesterday. Plan is for dialysis friday. CM working on dialysis chair. 01/21: Dialysis planned today. Medically clear for discharge otherwise. Discharge pending HD chair arrangement. He was advised to follow-up outpatient with Dr. Senior and Dr. Rider. 01/22: Awaiting hemodialysis chair arrangement 01/23: Patient has progressed to chronic kidney disease stage V requiring the initiation of dialysis during this admission. Permacath placed and is functioning well without any issues. Patient is tolerating his initial hemodialysis treatments well. Case management assistance in order to further help place patient at an outpatient dialysis facility for further dialysis needs. 01/25/2022. Await hemodialysis chair arrangements History Interval history: No new issues overnight Hospitalist Physical - Constitutional Vitals: Temp Pulse Resp BP Pulse Ox 98.3 F 77 20 129/70 98 01/25/22 07:17 01/25/22 07:17 01/25/22 07:17 01/25/22 07:17 01/25/22 07:17 General appearance: Present: no acute distress, well-nourished - EENT Eyes: Present: PERRL, EOM intact ENT: hearing intact, clear oral mucosa, dentition normal - Neck Neck: Present: supple, normal ROM - Respiratory Respiratory effort: normal Respiratory: bilateral: CTA - Cardiovascular Rhythm: regular Heart Sounds: Present: S1 & S2. Absent: gallop, rub - Extremities Extremities: no ischemia, No edema, Full ROM - Abdominal General gastrointestinal: soft, non-tender, non-distended, normal bowel sounds - Integumentary Integumentary: Present: clear, warm, dry - Neurologic Neurologic: CNII-XII intact, moves all extremities Results - Labs CBC & Chem 7: 01/25/22 04:49 01/25/22 04:49 Labs: Laboratory Last Values WBC 8.2 K/mm3 (4.5-11.0) 01/25/22 04:49 RBC 3.26 M/mm3 (3.65-5.03) L 01/25/22 04:49 Hgb 9.1 gm/dl (11.8-15.2) L 01/25/22 04:49 Hct 28.0 % (35.5-45.6) L 01/25/22 04:49 MCV 86 fl (84-94) 01/25/22 04:49 MCH 28 pg (28-32) 01/25/22 04:49 MCHC 33 % (32-34) 01/25/22 04:49 RDW 13.0 % (13.2-15.2) L 01/25/22 04:49 Plt Count 186 K/mm3 (140-440) 01/25/22 04:49 Eos % (Auto) Dispatch Clerk 01/25/22 04:49 Add Manual Diff Complete 01/25/22 04:49 Total Counted 100 01/25/22 04:49 Seg Neuts % (Manual) 59.0 % (40.0-70.0) 01/25/22 04:49 Band Neutrophils % 0 % 01/25/22 04:49 Lymphocytes % (Manual) 21.0 % (13.4-35.0) 01/25/22 04:49 Reactive Lymphs % (Man) 0 % 01/25/22 04:49 Monocytes % (Manual) 2.0 % (0.0-7.3) 01/25/22 04:49 Eosinophils % (Manual) 18.0 % (0.0-4.3) H 01/25/22 04:49 Basophils % (Manual) 0 % (0.0-1.8) 01/25/22 04:49 Metamyelocytes % 0 % 01/25/22 04:49 Myelocytes % 0 % 01/25/22 04:49 Promyelocytes % 0 % 01/25/22 04:49 Blast Cells % 0 % 01/25/22 04:49 Nucleated RBC % Not Reportable 01/25/22 04:49 Seg Neutrophils # Man 4.8 K/mm3 (1.8-7.7) 01/25/22 04:49 Band Neutrophils # 0.0 K/mm3 01/25/22 04:49 Lymphocytes # (Manual) 1.7 K/mm3 (1.2-5.4) 01/25/22 04:49 Abs React Lymphs (Man) 0.0 K/mm3 01/25/22 04:49 Monocytes # (Manual) 0.2 K/mm3 (0.0-0.8) 01/25/22 04:49 Eosinophils # (Manual) 1.5 K/mm3 (0.0-0.4) H 01/25/22 04:49 Basophils # (Manual) 0.0 K/mm3 (0.0-0.1) 01/25/22 04:49 Metamyelocytes # 0.0 K/mm3 01/25/22 04:49 Myelocytes # 0.0 K/mm3 01/25/22 04:49 Promyelocytes # 0.0 K/mm3 01/25/22 04:49 Blast Cells # 0.0 K/mm3 01/25/22 04:49 WBC Morphology Not Reportable 01/25/22 04:49 Hypersegmented Neuts Not Reportable 01/25/22 04:49 Hyposegmented Neuts Not Reportable 01/25/22 04:49 Hypogranular Neuts Not Reportable 01/25/22 04:49 Smudge Cells Not Reportable 01/25/22 04:49 Toxic Granulation Not Reportable 01/25/22 04:49 Toxic Vacuolation Not Reportable 01/25/22 04:49 Dohle Bodies Not Reportable 01/25/22 04:49 Pelger-Huet Anomaly Not Reportable 01/25/22 04:49 Eddie Rods Not Reportable 01/25/22 04:49 Platelet Estimate Consistent w auto 01/25/22 04:49 Clumped Platelets Not Reportable 01/25/22 04:49 Plt Clumps, EDTA Not Reportable 01/25/22 04:49 Large Platelets Not Reportable 01/25/22 04:49 Giant Platelets Not Reportable 01/25/22 04:49 Platelet Satelliting Not Reportable 01/25/22 04:49 Plt Morphology Comment Not Reportable 01/25/22 04:49 RBC Morphology Not Reportable 01/25/22 04:49 Dimorphic RBCs Not Reportable 01/25/22 04:49 Polychromasia Not Reportable 01/25/22 04:49 Hypochromasia Not Reportable 01/25/22 04:49 Poikilocytosis Not Reportable 01/25/22 04:49 Anisocytosis Not Reportable 01/25/22 04:49 Microcytosis Not Reportable 01/25/22 04:49 Macrocytosis Not Reportable 01/25/22 04:49 Spherocytes Not Reportable 01/25/22 04:49 Pappenheimer Bodies Not Reportable 01/25/22 04:49 Sickle Cells Not Reportable 01/25/22 04:49 Target Cells Not Reportable 01/25/22 04:49 Tear Drop Cells Not Reportable 01/25/22 04:49 Ovalocytes Not Reportable 01/25/22 04:49 Helmet Cells Not Reportable 01/25/22 04:49 [place] Bodies Not Reportable 01/25/22 04:49 Nada Rings Not Reportable 01/25/22 04:49 Barber Cells Not Reportable 01/25/22 04:49 Bite Cells Not Reportable 01/25/22 04:49 Crenated Cell Not Reportable 01/25/22 04:49 Elliptocytes Not Reportable 01/25/22 04:49 Acanthocytes (Spur) Not Reportable 01/25/22 04:49 Rouleaux Not Reportable 01/25/22 04:49 Hemoglobin C Crystals Not Reportable 01/25/22 04:49 Schistocytes Not Reportable 01/25/22 04:49 Malaria parasites Not Reportable 01/25/22 04:49 Santosh Bodies Not Reportable 01/25/22 04:49 Hem Pathologist Commnt No 01/25/22 04:49 Sodium 141 mmol/L (137-145) 01/25/22 04:49 Potassium 4.8 mmol/L (3.6-5.0) 01/25/22 04:49 Chloride 101.7 mmol/L (98-107) 01/25/22 04:49 Carbon Dioxide 25 mmol/L (22-30) 01/25/22 04:49 Anion Gap 19 mmol/L 01/25/22 04:49 BUN 55 mg/dL (9-20) H 01/25/22 04:49 Creatinine 7.0 mg/dL (0.8-1.3) H 01/25/22 04:49 Estimated GFR 10 ml/min 01/25/22 04:49 BUN/Creatinine Ratio 8 % 01/25/22 04:49 Glucose 126 mg/dL (75-100) H 01/25/22 04:49 POC Glucose 124 mg/dL (70-105) H 01/25/22 05:34 Calcium 9.0 mg/dL (8.4-10.2) 01/25/22 04:49 Phosphorus 4.70 mg/dL (2.5-4.5) H 01/19/22 03:54 Magnesium 1.70 mg/dL (1.7-2.3) 01/19/22 03:54 Iron 51 ug/dL (49-181) 01/18/22 04:36 Ferritin 45.8 ng/mL (30.0-300.0) 01/18/22 04:36 Total Bilirubin 0.30 mg/dL (0.1-1.2) 01/17/22 13:32 AST 18 units/L (5-40) 01/17/22 13:32 ALT 16 units/L (7-56) 01/17/22 13:32 Alkaline Phosphatase 97 units/L (35-129) 01/17/22 13:32 Total Protein 6.6 g/dL (6.3-8.2) 01/17/22 13:32 Albumin 4.3 g/dL (3.9-5) 01/17/22 13:32 Albumin/Globulin Ratio 1.9 % 01/17/22 13:32 SARS-CoV-2 (PCR) Negative (Negative) 01/22/22 10:05 Hepatitis A IgM Ab Non-reactive (NonReactive) 01/18/22 04:36 Hep Bs Antigen Non-reactive (Negative) 01/18/22 04:36 Hep B Core IgM Ab Non-reactive (NonReactive) 01/18/22 04:36 Hepatitis C Antibody Non-reactive (NonReactive) 01/18/22 04:36 Lopez/IV: Voiding Method Toilet Active Medications - Current Medications Current Medications: Generic Name Dose Route Start Last Admin Trade Name Freq PRN Reason Stop Dose Admin Acetaminophen 650 mg 01/17/22 22:11 01/19/22 09:29 Acetaminophen 325 Mg Tab PO 650 mg Q4H PRN Administration Pain MILD(1-3)/Fever >100.5/COSTA Albuterol 2.5 mg 01/17/22 22:11 Albuterol 2.5 Mg/3 Ml Nebu IH Q3HRT PRN Shortness Of Breath Amlodipine Besylate 10 mg 01/20/22 10:00 01/24/22 09:00 Amlodipine 10 Mg Tab PO 10 mg QDAY BASSAM Administration Dextrose 50 ml 01/17/22 22:50 Dextrose 50% In Water (25gm) 50 Ml Syringe IV Q30MIN PRN Hypoglycemia Protocol Famotidine 10 mg 01/18/22 10:00 01/24/22 21:26 Famotidine 10 Mg Tab PO 10 mg BID BASSAM Administration Sodium Chloride 100 mls @ 999 mls/hr 01/18/22 07:30 Nacl 0.9% IV KAREN PRN Hypotension Insulin Human Lispro 0 unit 01/18/22 00:00 01/25/22 00:03 Insulin Lispro 100 Unit/Ml SUB-Q 4 unit Q6HR BASSAM Administration Protocol Labetalol HCl 10 mg 01/19/22 09:17 01/21/22 23:53 Labetalol 20 Mg/4 Ml Inj IV 10 mg Q4HR PRN Administration sbp > 160 Morphine Sulfate 2 mg 01/17/22 22:11 Morphine 2 Mg/1 Ml Inj IV Q4H PRN Pain, Moderate (4-6) Morphine Sulfate 4 mg 01/17/22 22:11 Morphine 4 Mg/1 Ml Inj IV Q4H PRN Pain , Severe (7-10) Naloxone HCl 0.1 mg 01/17/22 22:08 Naloxone 0.4 Mg/1 Ml Inj IV Q2MIN PRN Res Rate </= 8 or 02 SAT < 92% Ondansetron HCl 4 mg 01/17/22 22:11 Ondansetron 4 Mg/2 Ml Inj IV Q8H PRN Nausea And Vomiting Sodium Chloride 10 ml 01/18/22 10:00 01/24/22 21:27 Sodium Chloride 0.9% 10 Ml Flush Syringe IV 10 ml BID BASSAM Administration Sodium Chloride 10 ml 01/17/22 22:11 01/20/22 00:17 Sodium Chloride 0.9% 10 Ml Flush Syringe IV 10 ml PRN PRN Administration LINE FLUSH Nutrition/Malnutrition Assess - Dietary Evaluation Nutrition/Malnutrition Findings: Nutrition Notes Start: 01/18/22 12:54 Freq: Status: Active Protocol: Document 01/21/22 10:19 REINALDO (Rec: 01/21/22 10:36 REINALDO [email or web address]) Nutrition Notes Initial or Follow up Reassessment Current Diagnosis CKD (stage V CKD),Diabetes, Hypertension,Hyperlipidemia Other Pertinent Diagnosis ESRD+HD, Anemia. Current Diet Renal Diet (since B 01/19). Labs/Tests 01/21: BUN 40, Crea 6.9, Glu 126, Ca 8.1. Pertinent Medications 01/21: Nutritionally unremarkable. Height 6 ft 2 in Weight 85.7 kg [place] Body Weight (kg) 86.36 BMI 24.3 Intake Prior to Admission Good Weight change and time frame Pt states being unsure if loss body weight CANOPY STRINGER. No body weight Change reported in 3 days. Weight Status Appropriate Subjective/Other Information RD consult for routine F/U on dietary advancement. Diet advanced to PO, No reports available on Pt's PO intake of meals at the time, will assess at F/U. Pt is on Room Air, O2 saturation @ 98%, according to Physical Assessment History notes. HD started on 01/19, well tolerated, according to Progress notes. Percent of energy/protein needs met: Prescribed Renal Diet provides for energy/protein needs (2, 072 Kcal/77 g) during LOS. Burn Absent Trauma Absent GI Symptoms None Food Allergy No Skin Integrity/Comment Assessment WNL. Minimum of two criteria No Fluid Accumulation N/A Reduced Prune Washer Strength N/A (non-severe) Protein-Calorie Malnutrition N\A #1 Nutrition Diagnosis Altered nutrition-related laboratory values Comments: 01/21: BUN 40, Crea 6.9, Glu 126, Ca 8.1. Diagnosis Progress(for reassessment Continues documentation) Is patient on ventilator? No Is Patient Ambulatory and/or Out of Bed Yes REE-([facility]-ambulatory/OOB) [ [id number] [id number]] Calculation Used for Recommendations [facility] Additional Notes Protein: >1.2 g/Kg ABW; >103 g /day. Fluids: 1-1.5 L/day, or as per MD. Nutrition Intervention Change Diet Order: Continue Renal Diet as tolerated. Goal #1 Adjust the dietary intervention to better serve Pt's needs and clinical conditions during LOS. Follow-Up By: 01/28/22 Additional Comments Continue monitoring food tolerance, %PO intake of meals , and BM.
[2022-01-25] MEDS: amLODIPine 10 MG TAB PO SCH (14:19)
[2022-01-25] MEDS: FAMOTIDINE 10 MG TAB PO SCH ×2 (14:20→21:30)
[2022-01-26] MEDS: INSULIN LISPRO 100 UNIT/ML SUB-Q SCH ×4 (00:11→17:42)
[2022-01-26 05:19] LABS: Hematocrit 28.1 % (35.5-45.6); Hemoglobin 9.3 gm/dl (11.8-15.2); Mean Corpuscular HGB Conc 33 % (32-34); Mean Corpuscular Volume 85 fl (84-94); Platelet Count 179 K/mm3 (140-440); Red Cell Distribution Width 12.9 % (13.2-15.2)
[2022-01-26 05:43] LABS: Calcium 8.9 mg/dL (8.4-10.2)
[2022-01-26 06:35] LABS: RBC Morphology Normal; Total Cells Counted 100
[2022-01-26] MEDS: FAMOTIDINE 10 MG TAB PO SCH ×2 (09:06→22:11)
[2022-01-26] MEDS: amLODIPine 10 MG TAB PO SCH (09:06)
--- NOTE | 2022-01-26 09:57 | Progress Note ---
Assessment and Plan - Patient Problems (1) Hyperkalemia Current Visit: Yes Status: Acute Plan to address problem: Corrected with hemodialysis. Counseled patient on the importance of maintaining a low potassium diet. (2) ESRD (end stage renal disease) Current Visit: Yes Status: Acute Plan to address problem: Patient has progressed to ESRD requiring the initiation of dialysis during this admission. Permacath placed and is functioning well without any issues. Case management assistance in order to further help place patient at an outpatient dialysis facility for further dialysis needs. Would suggest attempting placement at [facility] or [facility]. Continue on inpatient MWF HD schedule. (3) Hypertensive chronic kidney disease with stage 5 chronic kidney disease or end stage renal disease Current Visit: Yes Status: Chronic Plan to address problem: Monitor blood pressure is under current management. (4) Metabolic acidosis Current Visit: Yes Status: Acute Plan to address problem: corrected with HD. No need to continue oral sodium bicarbonate at this time as he has started hemodialysis. (5) Diabetes Current Visit: No Status: Chronic Plan to address problem: Diabetes management per primary attending. Subjective Date of service: 01/26/22 Principal diagnosis: Chronic kidney disease stage V Interval history: Patient is awake, alert, in no acute distress, denies CP, SOB, fever, chills, n/v/d Objective - Vital Signs Vital signs: Vital Signs - 12hr 01/25/22 01/25/22 01/26/22 23:45 23:50 00:27 Temperature 98.0 F Pulse Rate 82 74 Respiratory 12 18 Rate Blood Pressure 143/77 O2 Sat by Pulse 98 Oximetry 01/26/22 01/26/22 01/26/22 03:58 04:52 09:06 Temperature 97.9 F Pulse Rate 74 73 76 Respiratory 16 Rate Blood Pressure 137/79 144/83 O2 Sat by Pulse 99 Oximetry - General Appearance General appearance: well-developed, well-nourished, appears stated age EENT: ATNC, PERRL, mucous membranes moist Neck: no JVD Respiratory: Present: Clear to Ascultation Cardiology: regular, S1S2 Gastrointestinal: normoactive bowel sounds Integumentary: no rash, other Neurologic: no focal deficit, alert and oriented x3, strength 5/5, CN 3-12 intact Psychiatric: mood/affect appropriate, cooperative - Lab 01/26/22 04:18 01/26/22 04:18 Most recent lab results Calcium 8.9 mg/dL (8.4-10.2) 01/26/22 04:18 Phosphorus 4.70 mg/dL (2.5-4.5) H 01/19/22 03:54 Magnesium 1.70 mg/dL (1.7-2.3) 01/19/22 03:54 Medications & Allergies - Medications Allergies/Adverse Reactions: Allergies No Known Allergies Allergy (Verified 01/17/22 13:24) Home Medications: Home Medications Medication Instructions Recorded Confirmed Last Taken Type Glimepiride 1 mg PO DAILY 01/19/22 01/19/22 01/17/22 History Lipitor 20 mg PO HS 01/19/22 01/19/22 01/17/22 History Losartan 50 mg PO DAILY 01/19/22 01/19/22 01/17/22 History amLODIPine 5 mg PO DAILY 01/19/22 01/19/22 01/17/22 History calcitrioL 0.25 mg PO DAILY 01/19/22 01/19/22 01/17/22 History Active Medications: Generic Name Dose Route Start Last Admin Trade Name Freq PRN Reason Stop Dose Admin Acetaminophen 650 mg 01/17/22 22:11 01/19/22 09:29 Acetaminophen 325 Mg Tab PO 650 mg Q4H PRN Administration Pain MILD(1-3)/Fever >100.5/COSTA Albuterol 2.5 mg 01/17/22 22:11 Albuterol 2.5 Mg/3 Ml Nebu IH Q3HRT PRN Shortness Of Breath Amlodipine Besylate 10 mg 01/20/22 10:00 01/26/22 09:06 Amlodipine 10 Mg Tab PO 10 mg QDAY BASSAM Administration Dextrose 50 ml 01/17/22 22:50 Dextrose 50% In Water (25gm) 50 Ml Syringe IV Q30MIN PRN Hypoglycemia Protocol Famotidine 10 mg 01/18/22 10:00 01/26/22 09:06 Famotidine 10 Mg Tab PO 10 mg BID BASSAM Administration Sodium Chloride 100 mls @ 999 mls/hr 01/18/22 07:30 Nacl 0.9% IV KAREN PRN Hypotension Insulin Human Lispro 0 unit 01/18/22 00:00 01/26/22 06:59 Insulin Lispro 100 Unit/Ml SUB-Q 3 unit Q6HR BASSAM Administration Protocol Labetalol HCl 10 mg 01/19/22 09:17 01/21/22 23:53 Labetalol 20 Mg/4 Ml Inj IV 10 mg Q4HR PRN Administration sbp > 160 Morphine Sulfate 2 mg 01/17/22 22:11 Morphine 2 Mg/1 Ml Inj IV Q4H PRN Pain, Moderate (4-6) Morphine Sulfate 4 mg 01/17/22 22:11 Morphine 4 Mg/1 Ml Inj IV Q4H PRN Pain , Severe (7-10) Naloxone HCl 0.1 mg 01/17/22 22:08 Naloxone 0.4 Mg/1 Ml Inj IV Q2MIN PRN Res Rate </= 8 or 02 SAT < 92% Ondansetron HCl 4 mg 01/17/22 22:11 Ondansetron 4 Mg/2 Ml Inj IV Q8H PRN Nausea And Vomiting Sodium Chloride 10 ml 01/18/22 10:00 01/26/22 09:07 Sodium Chloride 0.9% 10 Ml Flush Syringe IV 10 ml BID BASSAM Administration Sodium Chloride 10 ml 01/17/22 22:11 01/20/22 00:17 Sodium Chloride 0.9% 10 Ml Flush Syringe IV 10 ml PRN PRN Administration LINE FLUSH
--- NOTE | 2022-01-26 09:57 | Progress Note ---
Assessment and Plan Assessment and plan: 56-year-old gentleman with history of hypertension, high cholesterol, diabetes and renal insufficiency, who was instructed to come to the emergency room because of abnormal outpatient laboratory studies. The patient reports that he was recently diagnosed with chronic renal insufficiency, and is currently following up with nephrology, Dr. Senior, as well as outpatient vascular surgery, [facility]. He is not currently on hemodialysis. He reports that he recently had outpatient laboratory studies obtained, reportedly they were abnormal, and he was instructed to present to the emergency room. In the emergency room patient is found to have BUN of 55 and creatinine 7.1, potassium 5.6, bicarb 18 and anion gap 17. Subsequently Case discussed with Dr. Seinor will see the patient in the morning for hemodialysis we also consult vascular surgery for vascular access. The patient was admitted with diagnosis below ESRD Hyperkalemia Diabetes mellitus type 2 Anemia of chronic disease Hypertension Metabolic acidosis Hospital course: 01/18: VSS. Vascular surgery consulted for vascular access for dialysis. Nephrology following, recommendations noted. Discussed with CM regarding dialysis chair for patient for when he will eventually be discharged outpatient. 01/19: S/p tunneled HD cath placement. K=5.5 on am labs. Will likely get corrected with HD. Will follow along with nephrology plan. CM working on dialysis chair set up. Anticipate d/c on Friday. 01/20: Awaiting am labs, given kionex by nephrology yesterday. Plan is for dialysis friday. CM working on dialysis chair. 01/21: Dialysis planned today. Medically clear for discharge otherwise. Discharge pending HD chair arrangement. He was advised to follow-up outpatient with Dr. Senior and Dr. Rider. 01/22: Awaiting hemodialysis chair arrangement 01/23: Patient has progressed to chronic kidney disease stage V requiring the initiation of dialysis during this admission. Permacath placed and is functioning well without any issues. Patient is tolerating his initial hemodialysis treatments well. Case management assistance in order to further help place patient at an outpatient dialysis facility for further dialysis needs. 01/25/2022. Await hemodialysis chair arrangements 01/26/2022. No new issues overnight. Patient has progressed to chronic kidney disease stage V requiring the initiation of dialysis during this admission. Patient is awaiting outpatient hemodialysis chair History Interval history: No new issues overnight Hospitalist Physical - Constitutional Vitals: Temp Pulse Resp BP Pulse Ox 97.9 F 76 16 144/83 99 01/26/22 03:58 01/26/22 09:06 01/26/22 03:58 01/26/22 09:06 01/26/22 03:58 General appearance: Present: no acute distress, well-nourished - EENT Eyes: Present: PERRL, EOM intact ENT: hearing intact, clear oral mucosa, dentition normal - Neck Neck: Present: supple, normal ROM - Respiratory Respiratory effort: normal Respiratory: bilateral: CTA - Cardiovascular Rhythm: regular Heart Sounds: Present: S1 & S2. Absent: gallop, rub - Extremities Extremities: no ischemia, No edema, Full ROM - Abdominal General gastrointestinal: soft, non-tender, non-distended, normal bowel sounds - Integumentary Integumentary: Present: clear, warm, dry - Neurologic Neurologic: CNII-XII intact, moves all extremities Results - Labs CBC & Chem 7: 01/26/22 04:18 01/26/22 04:18 Labs: Laboratory Last Values WBC 7.6 K/mm3 (4.5-11.0) 01/26/22 04:18 RBC 3.30 M/mm3 (3.65-5.03) L 01/26/22 04:18 Hgb 9.3 gm/dl (11.8-15.2) L 01/26/22 04:18 Hct 28.1 % (35.5-45.6) L 01/26/22 04:18 MCV 85 fl (84-94) 01/26/22 04:18 MCH 28 pg (28-32) 01/26/22 04:18 MCHC 33 % (32-34) 01/26/22 04:18 RDW 12.9 % (13.2-15.2) L 01/26/22 04:18 Plt Count 179 K/mm3 (140-440) 01/26/22 04:18 Eos % (Auto) [place] 01/26/22 04:18 Add Manual Diff Complete 01/26/22 04:18 Total Counted 100 01/26/22 04:18 Seg Neuts % (Manual) 40.0 % (40.0-70.0) 01/26/22 04:18 Band Neutrophils % 0 % 01/26/22 04:18 Lymphocytes % (Manual) 27.0 % (13.4-35.0) 01/26/22 04:18 Reactive Lymphs % (Man) 0 % 01/26/22 04:18 Monocytes % (Manual) 7.0 % (0.0-7.3) 01/26/22 04:18 Eosinophils % (Manual) 23.0 % (0.0-4.3) H 01/26/22 04:18 Basophils % (Manual) 3.0 % (0.0-1.8) H 01/26/22 04:18 Metamyelocytes % 0 % 01/26/22 04:18 Myelocytes % 0 % 01/26/22 04:18 Promyelocytes % 0 % 01/26/22 04:18 Blast Cells % 0 % 01/26/22 04:18 Nucleated RBC % Not Reportable 01/26/22 04:18 Seg Neutrophils # Man 3.0 K/mm3 (1.8-7.7) 01/26/22 04:18 Band Neutrophils # 0.0 K/mm3 01/26/22 04:18 Lymphocytes # (Manual) 2.1 K/mm3 (1.2-5.4) 01/26/22 04:18 Abs React Lymphs (Man) 0.0 K/mm3 01/26/22 04:18 Monocytes # (Manual) 0.5 K/mm3 (0.0-0.8) 01/26/22 04:18 Eosinophils # (Manual) 1.7 K/mm3 (0.0-0.4) H 01/26/22 04:18 Basophils # (Manual) 0.2 K/mm3 (0.0-0.1) H 01/26/22 04:18 Metamyelocytes # 0.0 K/mm3 01/26/22 04:18 Myelocytes # 0.0 K/mm3 01/26/22 04:18 Promyelocytes # 0.0 K/mm3 01/26/22 04:18 Blast Cells # 0.0 K/mm3 01/26/22 04:18 WBC Morphology Not Reportable 01/26/22 04:18 Hypersegmented Neuts Not Reportable 01/26/22 04:18 Hyposegmented Neuts Not Reportable 01/26/22 04:18 Hypogranular Neuts Not Reportable 01/26/22 04:18 Smudge Cells Not Reportable 01/26/22 04:18 Toxic Granulation Not Reportable 01/26/22 04:18 Toxic Vacuolation Not Reportable 01/26/22 04:18 Dohle Bodies Not Reportable 01/26/22 04:18 Pelger-Huet Anomaly Not Reportable 01/26/22 04:18 Eddie Rods Not Reportable 01/26/22 04:18 Platelet Estimate Not Reportable 01/26/22 04:18 Clumped Platelets Not Reportable 01/26/22 04:18 Plt Clumps, EDTA Not Reportable 01/26/22 04:18 Large Platelets Not Reportable 01/26/22 04:18 Giant Platelets Not Reportable 01/26/22 04:18 Platelet Satelliting Not Reportable 01/26/22 04:18 Plt Morphology Comment Not Reportable 01/26/22 04:18 RBC Morphology Normal 01/26/22 04:18 Dimorphic RBCs Not Reportable 01/26/22 04:18 Polychromasia Not Reportable 01/26/22 04:18 Hypochromasia Not Reportable 01/26/22 04:18 Poikilocytosis Not Reportable 01/26/22 04:18 Anisocytosis Not Reportable 01/26/22 04:18 Microcytosis Not Reportable 01/26/22 04:18 Macrocytosis Not Reportable 01/26/22 04:18 Spherocytes Not Reportable 01/26/22 04:18 Pappenheimer Bodies Not Reportable 01/26/22 04:18 Sickle Cells Not Reportable 01/26/22 04:18 Target Cells Not Reportable 01/26/22 04:18 Tear Drop Cells Not Reportable 01/26/22 04:18 Ovalocytes Not Reportable 01/26/22 04:18 Helmet Cells Not Reportable 01/26/22 04:18 Mathew-[place] Bodies Not Reportable 01/26/22 04:18 [place] Rings Not Reportable 01/26/22 04:18 [place] Cells Not Reportable 01/26/22 04:18 Bite Cells Not Reportable 01/26/22 04:18 Crenated Cell Not Reportable 01/26/22 04:18 Elliptocytes Not Reportable 01/26/22 04:18 Acanthocytes (Spur) Not Reportable 01/26/22 04:18 Rouleaux Not Reportable 01/26/22 04:18 Hemoglobin C Crystals Not Reportable 01/26/22 04:18 Schistocytes Not Reportable 01/26/22 04:18 Malaria parasites Not Reportable 01/26/22 04:18 Santosh Bodies Not Reportable 01/26/22 04:18 Hem Pathologist Commnt No 01/26/22 04:18 Sodium 138 mmol/L (137-145) 01/26/22 04:18 Potassium 4.3 mmol/L (3.6-5.0) 01/26/22 04:18 Chloride 96.3 mmol/L (98-107) L 01/26/22 04:18 Carbon Dioxide 27 mmol/L (22-30) 01/26/22 04:18 Anion Gap 19 mmol/L 01/26/22 04:18 BUN 38 mg/dL (9-20) H 01/26/22 04:18 Creatinine 5.2 mg/dL (0.8-1.3) H 01/26/22 04:18 Estimated GFR 14 ml/min 01/26/22 04:18 BUN/Creatinine Ratio 7 % 01/26/22 04:18 Glucose 217 mg/dL (75-100) H 01/26/22 04:18 POC Glucose 209 mg/dL (70-105) H 01/26/22 05:07 Calcium 8.9 mg/dL (8.4-10.2) 01/26/22 04:18 Phosphorus 4.70 mg/dL (2.5-4.5) H 01/19/22 03:54 Magnesium 1.70 mg/dL (1.7-2.3) 01/19/22 03:54 Iron 51 ug/dL (49-181) 01/18/22 04:36 Ferritin 45.8 ng/mL (30.0-300.0) 01/18/22 04:36 Total Bilirubin 0.30 mg/dL (0.1-1.2) 01/17/22 13:32 AST 18 units/L (5-40) 01/17/22 13:32 ALT 16 units/L (7-56) 01/17/22 13:32 Alkaline Phosphatase 97 units/L (35-129) 01/17/22 13:32 Total Protein 6.6 g/dL (6.3-8.2) 01/17/22 13:32 Albumin 4.3 g/dL (3.9-5) 01/17/22 13:32 Albumin/Globulin Ratio 1.9 % 01/17/22 13:32 SARS-CoV-2 (PCR) Negative (Negative) 01/22/22 10:05 Hepatitis A IgM Ab Non-reactive (NonReactive) 01/18/22 04:36 Hep Bs Antigen Non-reactive (Negative) 01/18/22 04:36 Hep B Core IgM Ab Non-reactive (NonReactive) 01/18/22 04:36 Hepatitis C Antibody Non-reactive (NonReactive) 01/18/22 04:36 Lopez/IV: Voiding Method Toilet Active Medications - Current Medications Current Medications: Generic Name Dose Route Start Last Admin Trade Name Freq PRN Reason Stop Dose Admin Acetaminophen 650 mg 01/17/22 22:11 01/19/22 09:29 Acetaminophen 325 Mg Tab PO 650 mg Q4H PRN Administration Pain MILD(1-3)/Fever >100.5/COSTA Albuterol 2.5 mg 01/17/22 22:11 Albuterol 2.5 Mg/3 Ml Nebu IH Q3HRT PRN Shortness Of Breath Amlodipine Besylate 10 mg 01/20/22 10:00 01/26/22 09:06 Amlodipine 10 Mg Tab PO 10 mg QDAY BASSAM Administration Dextrose 50 ml 01/17/22 22:50 Dextrose 50% In Water (25gm) 50 Ml Syringe IV Q30MIN PRN Hypoglycemia Protocol Famotidine 10 mg 01/18/22 10:00 01/26/22 09:06 Famotidine 10 Mg Tab PO 10 mg BID BASSAM Administration Sodium Chloride 100 mls @ 999 mls/hr 01/18/22 07:30 Nacl 0.9% IV KAREN PRN Hypotension Insulin Human Lispro 0 unit 01/18/22 00:00 01/26/22 06:59 Insulin Lispro 100 Unit/Ml SUB-Q 3 unit Q6HR BASSAM Administration Protocol Labetalol HCl 10 mg 01/19/22 09:17 01/21/22 23:53 Labetalol 20 Mg/4 Ml Inj IV 10 mg Q4HR PRN Administration sbp > 160 Morphine Sulfate 2 mg 01/17/22 22:11 Morphine 2 Mg/1 Ml Inj IV Q4H PRN Pain, Moderate (4-6) Morphine Sulfate 4 mg 01/17/22 22:11 Morphine 4 Mg/1 Ml Inj IV Q4H PRN Pain , Severe (7-10) Naloxone HCl 0.1 mg 01/17/22 22:08 Naloxone 0.4 Mg/1 Ml Inj IV Q2MIN PRN Res Rate </= 8 or 02 SAT < 92% Ondansetron HCl 4 mg 01/17/22 22:11 Ondansetron 4 Mg/2 Ml Inj IV Q8H PRN Nausea And Vomiting Sodium Chloride 10 ml 01/18/22 10:00 01/26/22 09:07 Sodium Chloride 0.9% 10 Ml Flush Syringe IV 10 ml BID BASSAM Administration Sodium Chloride 10 ml 01/17/22 22:11 01/20/22 00:17 Sodium Chloride 0.9% 10 Ml Flush Syringe IV 10 ml PRN PRN Administration LINE FLUSH Nutrition/Malnutrition Assess - Dietary Evaluation Nutrition/Malnutrition Findings: Nutrition Notes Start: 01/18/22 12:54 Freq: Status: Active Protocol: Document 01/21/22 10:19 REINALDO (Rec: 01/21/22 10:36 REINALDO [email or web address]) Nutrition Notes Initial or Follow up Reassessment Current Diagnosis CKD (stage V CKD),Diabetes, Hypertension,Hyperlipidemia Other Pertinent Diagnosis ESRD+HD, Anemia. Current Diet Renal Diet (since B 01/19). Labs/Tests 01/21: BUN 40, Crea 6.9, Glu 126, Ca 8.1. Pertinent Medications 01/21: Nutritionally unremarkable. Height 6 ft 2 in Weight 85.7 kg [place] Body Weight (kg) 86.36 BMI 24.3 Intake Prior to Admission Good Weight change and time frame Pt states being unsure if loss body weight [employer]. No body weight Change reported in 3 days. Weight Status Appropriate Subjective/Other Information RD consult for routine F/U on dietary advancement. Diet advanced to PO, No reports available on Pt's PO intake of meals at the time, will assess at F/U. Pt is on Room Air, O2 saturation @ 98%, according to Physical Assessment History notes. HD started on 01/19, well tolerated, according to Progress notes. Percent of energy/protein needs met: Prescribed Renal Diet provides for energy/protein needs (2, 072 Kcal/77 g) during LOS. Burn Absent Trauma Absent GI Symptoms None Food Allergy No Skin Integrity/Comment Assessment WNL. 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 Diagnosis Progress(for reassessment Continues documentation) Is patient on ventilator? No Is Patient Ambulatory and/or Out of Bed Yes REE-([facility] [place]-ambulatory/OOB) [ [id number] [id number]] Calculation Used for Recommendations [facility] Additional Notes Protein: >1.2 g/Kg ABW; >103 g /day. Fluids: 1-1.5 L/day, or as per MD. Nutrition Intervention Change Diet Order: Continue Renal Diet as tolerated. Goal #1 Adjust the dietary intervention to better serve Pt's needs and clinical conditions during LOS. Follow-Up By: 01/28/22 Additional Comments Continue monitoring food tolerance, %PO intake of meals , and BM.
[2022-01-27] MEDS: INSULIN LISPRO 100 UNIT/ML SUB-Q SCH ×4 (00:12→17:32)
[2022-01-27 06:03] LABS: Hematocrit 28.6 % (35.5-45.6); Hemoglobin 9.4 gm/dl (11.8-15.2); Mean Corpuscular HGB Conc 33 % (32-34); Mean Corpuscular Volume 85 fl (84-94); Platelet Count 197 K/mm3 (140-440); Red Blood Count 3.38 M/mm3 (3.65-5.03)
[2022-01-27 06:32] LABS: Calcium 8.6 mg/dL (8.4-10.2)
[2022-01-27 06:59] LABS: Anisocytosis 1+; Platelet Estimate Consistent w Auto; Total Cells Counted 100
[2022-01-27] MEDS: FAMOTIDINE 10 MG TAB PO SCH ×2 (09:17→21:20)
[2022-01-27] MEDS: amLODIPine 10 MG TAB PO SCH (09:17)
--- NOTE | 2022-01-27 10:46 | Progress Note ---
Assessment and Plan Assessment and plan: 56-year-old gentleman with history of hypertension, high cholesterol, diabetes and renal insufficiency, who was instructed to come to the emergency room because of abnormal outpatient laboratory studies. The patient reports that he was recently diagnosed with chronic renal insufficiency, and is currently following up with nephrology, Dr. Senior, as well as outpatient vascular surgery, [facility]. He is not currently on hemodialysis. He reports that he recently had outpatient laboratory studies obtained, reportedly they were abnormal, and he was instructed to present to the emergency room. In the emergency room patient is found to have BUN of 55 and creatinine 7.1, potassium 5.6, bicarb 18 and anion gap 17. Subsequently Case discussed with Dr. Senior will see the patient in the morning for hemodialysis we also consult vascular surgery for vascular access. The patient was admitted with diagnosis below ESRD Hyperkalemia Diabetes mellitus type 2 Anemia of chronic disease Hypertension Metabolic acidosis Hospital course: 01/18: VSS. Vascular surgery consulted for vascular access for dialysis. Nephrology following, recommendations noted. Discussed with CM regarding dialysis chair for patient for when he will eventually be discharged outpatient. 01/19: S/p tunneled HD cath placement. K=5.5 on am labs. Will likely get corrected with HD. Will follow along with nephrology plan. CM working on dialysis chair set up. Anticipate d/c on Friday. 01/20: Awaiting am labs, given kionex by nephrology yesterday. Plan is for dialysis friday. CM working on dialysis chair. 01/21: Dialysis planned today. Medically clear for discharge otherwise. Discharge pending HD chair arrangement. He was advised to follow-up outpatient with Dr. Senior and Dr. Rider. 01/22: Awaiting hemodialysis chair arrangement 01/23: Patient has progressed to chronic kidney disease stage V requiring the initiation of dialysis during this admission. Permacath placed and is functioning well without any issues. Patient is tolerating his initial hemodialysis treatments well. Case management assistance in order to further help place patient at an outpatient dialysis facility for further dialysis needs. 01/25/2022. Await hemodialysis chair arrangements 01/26/2022. No new issues overnight. Patient has progressed to chronic kidney disease stage V requiring the initiation of dialysis during this admission. Patient is awaiting outpatient hemodialysis chair 01/27/2022. Patient is awaiting outpatient hemodialysis chair History Interval history: No new issues overnight Hospitalist Physical - Constitutional Vitals: Temp Pulse Resp BP Pulse Ox 98.0 F 76 18 145/81 99 01/27/22 04:10 01/27/22 09:17 01/27/22 04:10 01/27/22 09:17 01/27/22 04:10 General appearance: Present: no acute distress, well-nourished - EENT Eyes: Present: PERRL, EOM intact ENT: hearing intact, clear oral mucosa, dentition normal - Neck Neck: Present: supple, normal ROM - Respiratory Respiratory effort: normal Respiratory: bilateral: CTA - Cardiovascular Rhythm: regular Heart Sounds: Present: S1 & S2. Absent: gallop, rub - Extremities Extremities: no ischemia, No edema, Full ROM - Abdominal General gastrointestinal: soft, non-tender, non-distended, normal bowel sounds - Integumentary Integumentary: Present: clear, warm, dry - Neurologic Neurologic: CNII-XII intact, moves all extremities Results - Labs CBC & Chem 7: 01/27/22 05:35 01/27/22 05:35 Labs: Laboratory Last Values WBC 8.3 K/mm3 (4.5-11.0) 01/27/22 05:35 RBC 3.38 M/mm3 (3.65-5.03) L 01/27/22 05:35 Hgb 9.4 gm/dl (11.8-15.2) L 01/27/22 05:35 Hct 28.6 % (35.5-45.6) L 01/27/22 05:35 MCV 85 fl (84-94) 01/27/22 05:35 MCH 28 pg (28-32) 01/27/22 05:35 MCHC 33 % (32-34) 01/27/22 05:35 RDW 13.0 % (13.2-15.2) L 01/27/22 05:35 Plt Count 197 K/mm3 (140-440) 01/27/22 05:35 Eos % (Auto) Rib Sawyer 01/27/22 05:35 Add Manual Diff Complete 01/27/22 05:35 Total Counted 100 01/27/22 05:35 Seg Neuts % (Manual) 45.0 % (40.0-70.0) 01/27/22 05:35 Band Neutrophils % 0 % 01/27/22 05:35 Lymphocytes % (Manual) 31.0 % (13.4-35.0) 01/27/22 05:35 Reactive Lymphs % (Man) 0 % 01/27/22 05:35 Monocytes % (Manual) 3.0 % (0.0-7.3) 01/27/22 05:35 Eosinophils % (Manual) 20.0 % (0.0-4.3) H 01/27/22 05:35 Basophils % (Manual) 1.0 % (0.0-1.8) 01/27/22 05:35 Metamyelocytes % 0 % 01/27/22 05:35 Myelocytes % 0 % 01/27/22 05:35 Promyelocytes % 0 % 01/27/22 05:35 Blast Cells % 0 % 01/27/22 05:35 Nucleated RBC % Not Reportable 01/27/22 05:35 Seg Neutrophils # Man 3.7 K/mm3 (1.8-7.7) 01/27/22 05:35 Band Neutrophils # 0.0 K/mm3 01/27/22 05:35 Lymphocytes # (Manual) 2.6 K/mm3 (1.2-5.4) 01/27/22 05:35 Abs React Lymphs (Man) 0.0 K/mm3 01/27/22 05:35 Monocytes # (Manual) 0.2 K/mm3 (0.0-0.8) 01/27/22 05:35 Eosinophils # (Manual) 1.7 K/mm3 (0.0-0.4) H 01/27/22 05:35 Basophils # (Manual) 0.1 K/mm3 (0.0-0.1) 01/27/22 05:35 Metamyelocytes # 0.0 K/mm3 01/27/22 05:35 Myelocytes # 0.0 K/mm3 01/27/22 05:35 Promyelocytes # 0.0 K/mm3 01/27/22 05:35 Blast Cells # 0.0 K/mm3 01/27/22 05:35 WBC Morphology Not Reportable 01/27/22 05:35 Hypersegmented Neuts Not Reportable 01/27/22 05:35 Hyposegmented Neuts Not Reportable 01/27/22 05:35 Hypogranular Neuts Not Reportable 01/27/22 05:35 Smudge Cells Not Reportable 01/27/22 05:35 Toxic Granulation Not Reportable 01/27/22 05:35 Toxic Vacuolation Not Reportable 01/27/22 05:35 Dohle Bodies Not Reportable 01/27/22 05:35 Pelger-Huet Anomaly Not Reportable 01/27/22 05:35 Eddie Rods Not Reportable 01/27/22 05:35 Platelet Estimate Consistent w auto 01/27/22 05:35 Clumped Platelets Not Reportable 01/27/22 05:35 Plt Clumps, EDTA Not Reportable 01/27/22 05:35 Large Platelets Not Reportable 01/27/22 05:35 Giant Platelets Not Reportable 01/27/22 05:35 Platelet Satelliting Not Reportable 01/27/22 05:35 Plt Morphology Comment Not Reportable 01/27/22 05:35 RBC Morphology Not Reportable 01/27/22 05:35 Dimorphic RBCs Not Reportable 01/27/22 05:35 Polychromasia Not Reportable 01/27/22 05:35 Hypochromasia Not Reportable 01/27/22 05:35 Poikilocytosis Not Reportable 01/27/22 05:35 Anisocytosis 1+ 01/27/22 05:35 Microcytosis Not Reportable 01/27/22 05:35 Macrocytosis Not Reportable 01/27/22 05:35 Spherocytes Not Reportable 01/27/22 05:35 Pappenheimer Bodies Not Reportable 01/27/22 05:35 Sickle Cells Not Reportable 01/27/22 05:35 Target Cells Not Reportable 01/27/22 05:35 Tear Drop Cells Not Reportable 01/27/22 05:35 Ovalocytes Not Reportable 01/27/22 05:35 Helmet Cells Not Reportable 01/27/22 05:35 Mathew-Nardin Bodies Not Reportable 01/27/22 05:35 Shunk Rings Not Reportable 01/27/22 05:35 Barber Cells Not Reportable 01/27/22 05:35 Bite Cells Not Reportable 01/27/22 05:35 Crenated Cell Not Reportable 01/27/22 05:35 Elliptocytes Not Reportable 01/27/22 05:35 Acanthocytes (Spur) Not Reportable 01/27/22 05:35 Rouleaux Not Reportable 01/27/22 05:35 Hemoglobin C Crystals Not Reportable 01/27/22 05:35 Schistocytes Not Reportable 01/27/22 05:35 Malaria parasites Not Reportable 01/27/22 05:35 Santosh Bodies Not Reportable 01/27/22 05:35 Hem Pathologist Commnt No 01/27/22 05:35 Sodium 138 mmol/L (137-145) 01/27/22 05:35 Potassium 4.2 mmol/L (3.6-5.0) 01/27/22 05:35 Chloride 98.1 mmol/L (98-107) 01/27/22 05:35 Carbon Dioxide 27 mmol/L (22-30) 01/27/22 05:35 Anion Gap 17 mmol/L 01/27/22 05:35 BUN 54 mg/dL (9-20) H 01/27/22 05:35 Creatinine 6.5 mg/dL (0.8-1.3) H 01/27/22 05:35 Estimated GFR 11 ml/min 01/27/22 05:35 BUN/Creatinine Ratio 8 % 01/27/22 05:35 Glucose 147 mg/dL (75-100) H 01/27/22 05:35 POC Glucose 171 mg/dL (70-105) H 01/27/22 06:00 Calcium 8.6 mg/dL (8.4-10.2) 01/27/22 05:35 Phosphorus 4.70 mg/dL (2.5-4.5) H 01/19/22 03:54 Magnesium 1.70 mg/dL (1.7-2.3) 01/19/22 03:54 Iron 51 ug/dL (49-181) 01/18/22 04:36 Ferritin 45.8 ng/mL (30.0-300.0) 01/18/22 04:36 Total Bilirubin 0.30 mg/dL (0.1-1.2) 01/17/22 13:32 AST 18 units/L (5-40) 01/17/22 13:32 ALT 16 units/L (7-56) 01/17/22 13:32 Alkaline Phosphatase 97 units/L (35-129) 01/17/22 13:32 Total Protein 6.6 g/dL (6.3-8.2) 01/17/22 13:32 Albumin 4.3 g/dL (3.9-5) 01/17/22 13:32 Albumin/Globulin Ratio 1.9 % 01/17/22 13:32 SARS-CoV-2 (PCR) Negative (Negative) 01/22/22 10:05 Hepatitis A IgM Ab Non-reactive (NonReactive) 01/18/22 04:36 Hep Bs Antigen Non-reactive (Negative) 01/18/22 04:36 Hep B Core IgM Ab Non-reactive (NonReactive) 01/18/22 04:36 Hepatitis C Antibody Non-reactive (NonReactive) 01/18/22 04:36 Lopez/IV: Voiding Method Toilet Active Medications - Current Medications Current Medications: Generic Name Dose Route Start Last Admin Trade Name Freq PRN Reason Stop Dose Admin Acetaminophen 650 mg 01/17/22 22:11 01/19/22 09:29 Acetaminophen 325 Mg Tab PO 650 mg Q4H PRN Administration Pain MILD(1-3)/Fever >100.5/COSTA Albuterol 2.5 mg 01/17/22 22:11 Albuterol 2.5 Mg/3 Ml Nebu IH Q3HRT PRN Shortness Of Breath Amlodipine Besylate 10 mg 01/20/22 10:00 01/27/22 09:17 Amlodipine 10 Mg Tab PO 10 mg QDAY BASSAM Administration Dextrose 50 ml 01/17/22 22:50 Dextrose 50% In Water (25gm) 50 Ml Syringe IV Q30MIN PRN Hypoglycemia Protocol Famotidine 10 mg 01/18/22 10:00 01/27/22 09:17 Famotidine 10 Mg Tab PO 10 mg BID BASSAM Administration Sodium Chloride 100 mls @ 999 mls/hr 01/18/22 07:30 Nacl 0.9% IV KAREN PRN Hypotension Insulin Human Lispro 0 unit 01/18/22 00:00 01/27/22 06:14 Insulin Lispro 100 Unit/Ml SUB-Q 2 unit Q6HR BASSAM Administration Protocol Labetalol HCl 10 mg 01/19/22 09:17 01/21/22 23:53 Labetalol 20 Mg/4 Ml Inj IV 10 mg Q4HR PRN Administration sbp > 160 Morphine Sulfate 2 mg 01/17/22 22:11 Morphine 2 Mg/1 Ml Inj IV Q4H PRN Pain, Moderate (4-6) Morphine Sulfate 4 mg 01/17/22 22:11 Morphine 4 Mg/1 Ml Inj IV Q4H PRN Pain , Severe (7-10) Naloxone HCl 0.1 mg 01/17/22 22:08 Naloxone 0.4 Mg/1 Ml Inj IV Q2MIN PRN Res Rate </= 8 or 02 SAT < 92% Ondansetron HCl 4 mg 01/17/22 22:11 Ondansetron 4 Mg/2 Ml Inj IV Q8H PRN Nausea And Vomiting Sodium Chloride 10 ml 01/18/22 10:00 01/27/22 09:17 Sodium Chloride 0.9% 10 Ml Flush Syringe IV 10 ml BID BASSAM Administration Sodium Chloride 10 ml 01/17/22 22:11 01/20/22 00:17 Sodium Chloride 0.9% 10 Ml Flush Syringe IV 10 ml PRN PRN Administration LINE FLUSH Nutrition/Malnutrition Assess - Dietary Evaluation Nutrition/Malnutrition Findings: Nutrition Notes Start: 01/18/22 12:54 Freq: Status: Active Protocol: Document 01/21/22 10:19 REINALDO (Rec: 01/21/22 10:36 REINALDO [id number]) Nutrition Notes Initial or Follow up Reassessment Current Diagnosis CKD (stage V CKD),Diabetes, Hypertension,Hyperlipidemia Other Pertinent Diagnosis ESRD+HD, Anemia. Current Diet Renal Diet (since B 01/19). Labs/Tests 01/21: BUN 40, Crea 6.9, Glu 126, Ca 8.1. Pertinent Medications 01/21: Nutritionally unremarkable. Height 6 ft 2 in Weight 85.7 kg [place] Body Weight (kg) 86.36 BMI 24.3 Intake Prior to Admission Good Weight change and time frame Pt states being unsure if loss body weight SILVER BUFFER. No body weight Change reported in 3 days. Weight Status Appropriate Subjective/Other Information RD consult for routine F/U on dietary advancement. Diet advanced to PO, No reports available on Pt's PO intake of meals at the time, will assess at F/U. Pt is on Room Air, O2 saturation @ 98%, according to Physical Assessment History notes. HD started on 01/19, well tolerated, according to Progress notes. Percent of energy/protein needs met: Prescribed Renal Diet provides for energy/protein needs (2, 072 Kcal/77 g) during LOS. Burn Absent Trauma Absent GI Symptoms None Food Allergy No Skin Integrity/Comment Assessment WNL. Minimum of two criteria No Fluid Accumulation N/A Reduced Phlebotomy Services Technician Strength N/A (non-severe) Protein-Calorie Malnutrition N\A #1 Nutrition Diagnosis Altered nutrition-related laboratory values Comments: 01/21: BUN 40, Crea 6.9, Glu 126, Ca 8.1. Diagnosis Progress(for reassessment Continues documentation) Is patient on ventilator? No Is Patient Ambulatory and/or Out of Bed Yes [facility] [ [id number] [id number]] Calculation Used for Recommendations [facility] Additional Notes Protein: >1.2 g/Kg ABW; >103 g /day. Fluids: 1-1.5 L/day, or as per MD. Nutrition Intervention Change Diet Order: Continue Renal Diet as tolerated. Goal #1 Adjust the dietary intervention to better serve Pt's needs and clinical conditions during LOS. Follow-Up By: 01/28/22 Additional Comments Continue monitoring food tolerance, %PO intake of meals , and BM.
--- NOTE | 2022-01-27 22:02 | Progress Note ---
Assessment and Plan - Patient Problems (1) Hyperkalemia Current Visit: Yes Status: Acute Plan to address problem: Corrected with hemodialysis. Counseled patient on the importance of maintaining a low potassium diet. (2) ESRD (end stage renal disease) Current Visit: Yes Status: Acute Plan to address problem: Patient has progressed to ESRD requiring the initiation of dialysis during this admission. Permacath placed and is functioning well without any issues. Case management assistance in order to further help place patient at an outpatient dialysis facility for further dialysis needs. Would suggest attempting placement at [facility] or [facility]. Continue on inpatient MWF HD schedule. (3) Hypertensive chronic kidney disease with stage 5 chronic kidney disease or end stage renal disease Current Visit: Yes Status: Chronic Plan to address problem: Monitor blood pressure is under current management. (4) Metabolic acidosis Current Visit: Yes Status: Acute Plan to address problem: corrected with HD. No need to continue oral sodium bicarbonate at this time as he has started hemodialysis. (5) Diabetes Current Visit: No Status: Chronic Plan to address problem: Diabetes management per primary attending. Subjective Date of service: 01/27/22 Principal diagnosis: Chronic kidney disease stage V Interval history: Patient is awake, alert, in no acute distress, denies CP, SOB, fever, chills, n/v/d Objective - Vital Signs Vital signs: Vital Signs - 12hr 01/27/22 01/27/22 01/27/22 16:19 18:00 19:39 Temperature 98.4 F 97.9 F Pulse Rate 75 75 84 Respiratory 18 16 Rate Blood Pressure 141/74 142/72 O2 Sat by Pulse 99 98 Oximetry - General Appearance General appearance: well-developed, well-nourished, appears stated age EENT: ATNC, PERRL, mucous membranes moist Neck: no JVD Respiratory: Present: Clear to Ascultation Cardiology: regular, S1S2 Gastrointestinal: normal Integumentary: no rash, other (no edema ) Neurologic: no focal deficit, alert and oriented x3, strength 5/5, CN 3-12 intact Psychiatric: mood/affect appropriate, cooperative - Lab 01/27/22 05:35 01/27/22 05:35 Most recent lab results Calcium 8.6 mg/dL (8.4-10.2) 01/27/22 05:35 Phosphorus 4.70 mg/dL (2.5-4.5) H 01/19/22 03:54 Magnesium 1.70 mg/dL (1.7-2.3) 01/19/22 03:54 Medications & Allergies - Medications Allergies/Adverse Reactions: Allergies No Known Allergies Allergy (Verified 01/17/22 13:24) Home Medications: Home Medications Medication Instructions Recorded Confirmed Last Taken Type Glimepiride 1 mg PO DAILY 01/19/22 01/19/22 01/17/22 History Lipitor 20 mg PO HS 01/19/22 01/19/22 01/17/22 History Losartan 50 mg PO DAILY 01/19/22 01/19/22 01/17/22 History amLODIPine 5 mg PO DAILY 01/19/22 01/19/22 01/17/22 History calcitrioL 0.25 mg PO DAILY 01/19/22 01/19/22 01/17/22 History Active Medications: Generic Name Dose Route Start Last Admin Trade Name Freq PRN Reason Stop Dose Admin Acetaminophen 650 mg 01/17/22 22:11 01/19/22 09:29 Acetaminophen 325 Mg Tab PO 650 mg Q4H PRN Administration Pain MILD(1-3)/Fever >100.5/COSTA Albuterol 2.5 mg 01/17/22 22:11 Albuterol 2.5 Mg/3 Ml Nebu IH Q3HRT PRN Shortness Of Breath Amlodipine Besylate 10 mg 01/20/22 10:00 01/27/22 09:17 Amlodipine 10 Mg Tab PO 10 mg QDAY BASSAM Administration Dextrose 50 ml 01/17/22 22:50 Dextrose 50% In Water (25gm) 50 Ml Syringe IV Q30MIN PRN Hypoglycemia Protocol Famotidine 10 mg 01/18/22 10:00 01/27/22 21:20 Famotidine 10 Mg Tab PO 10 mg BID BASSAM Administration Sodium Chloride 100 mls @ 999 mls/hr 01/18/22 07:30 Nacl 0.9% IV KAREN PRN Hypotension Insulin Human Lispro 0 unit 01/18/22 00:00 01/27/22 17:32 Insulin Lispro 100 Unit/Ml SUB-Q 3 unit Q6HR BASSAM Administration Protocol Labetalol HCl 10 mg 01/19/22 09:17 01/21/22 23:53 Labetalol 20 Mg/4 Ml Inj IV 10 mg Q4HR PRN Administration sbp > 160 Morphine Sulfate 2 mg 01/17/22 22:11 Morphine 2 Mg/1 Ml Inj IV Q4H PRN Pain, Moderate (4-6) Morphine Sulfate 4 mg 01/17/22 22:11 Morphine 4 Mg/1 Ml Inj IV Q4H PRN Pain , Severe (7-10) Naloxone HCl 0.1 mg 01/17/22 22:08 Naloxone 0.4 Mg/1 Ml Inj IV Q2MIN PRN Res Rate </= 8 or 02 SAT < 92% Ondansetron HCl 4 mg 01/17/22 22:11 Ondansetron 4 Mg/2 Ml Inj IV Q8H PRN Nausea And Vomiting Sodium Chloride 10 ml 01/18/22 10:00 01/27/22 21:20 Sodium Chloride 0.9% 10 Ml Flush Syringe IV 10 ml BID BASSAM Administration Sodium Chloride 10 ml 01/17/22 22:11 01/20/22 00:17 Sodium Chloride 0.9% 10 Ml Flush Syringe IV 10 ml PRN PRN Administration LINE FLUSH
[2022-01-28] MEDS: INSULIN LISPRO 100 UNIT/ML SUB-Q SCH ×5 (00:03→23:54)
[2022-01-28 05:04] LABS: Hematocrit 26.1 % (35.5-45.6); Hemoglobin 8.9 gm/dl (11.8-15.2); Mean Corpuscular HGB Conc 34 % (32-34); Mean Corpuscular Volume 85 fl (84-94); Platelet Count 180 K/mm3 (140-440); Red Blood Count 3.07 M/mm3 (3.65-5.03)
[2022-01-28 05:24] LABS: Calcium 8.9 mg/dL (8.4-10.2)
[2022-01-28 05:46] LABS: Basophils % (Manual) 0 % (0.0-1.8); Total Cells Counted 100
[2022-01-28 05:47] LABS: Anisocytosis 1+; Platelet Estimate Consistent w Auto
[2022-01-28] MEDS: amLODIPine 10 MG TAB PO SCH (08:59)
[2022-01-28] MEDS: FAMOTIDINE 10 MG TAB PO SCH ×2 (08:59→21:22)
--- NOTE | 2022-01-28 10:15 | Progress Note ---
Assessment and Plan Assessment and plan: 56-year-old gentleman with history of hypertension, high cholesterol, diabetes and renal insufficiency, who was instructed to come to the emergency room because of abnormal outpatient laboratory studies. The patient reports that he was recently diagnosed with chronic renal insufficiency, and is currently following up with nephrology, Dr. Senior, as well as outpatient vascular surgery, [facility]. He is not currently on hemodialysis. He reports that he recently had outpatient laboratory studies obtained, reportedly they were abnormal, and he was instructed to present to the emergency room. In the emergency room patient is found to have BUN of 55 and creatinine 7.1, potassium 5.6, bicarb 18 and anion gap 17. Subsequently Case discussed with Dr. Senior will see the patient in the morning for hemodialysis we also consult vascular surgery for vascular access. The patient was admitted with diagnosis below ESRD Hyperkalemia Diabetes mellitus type 2 Anemia of chronic disease Hypertension Metabolic acidosis Hospital course: 01/18: VSS. Vascular surgery consulted for vascular access for dialysis. Nephrology following, recommendations noted. Discussed with CM regarding dialysis chair for patient for when he will eventually be discharged outpatient. 01/19: S/p tunneled HD cath placement. K=5.5 on am labs. Will likely get corrected with HD. Will follow along with nephrology plan. CM working on dialysis chair set up. Anticipate d/c on Friday. 01/20: Awaiting am labs, given kionex by nephrology yesterday. Plan is for dialysis friday. CM working on dialysis chair. 01/21: Dialysis planned today. Medically clear for discharge otherwise. Discharge pending HD chair arrangement. He was advised to follow-up outpatient with Dr. Senior and Dr. Rider. 01/22: Awaiting hemodialysis chair arrangement 01/23: Patient has progressed to chronic kidney disease stage V requiring the initiation of dialysis during this admission. Permacath placed and is functioning well without any issues. Patient is tolerating his initial hemodialysis treatments well. Case management assistance in order to further help place patient at an outpatient dialysis facility for further dialysis needs. 01/25/2022. Await hemodialysis chair arrangements 01/26/2022. No new issues overnight. Patient has progressed to chronic kidney disease stage V requiring the initiation of dialysis during this admission. Patient is awaiting outpatient hemodialysis chair 01/27/2022. Patient is awaiting outpatient hemodialysis chair 01/28/2022. Patient is awaiting outpatient hemodialysis chair History Interval history: No new issues overnight Hospitalist Physical - Constitutional Vitals: Temp Pulse Resp BP Pulse Ox 97.9 F 74 18 150/86 100 01/28/22 07:53 01/28/22 07:53 01/28/22 07:53 01/28/22 07:53 01/28/22 07:53 General appearance: Present: no acute distress, well-nourished - EENT Eyes: Present: PERRL, EOM intact ENT: hearing intact, clear oral mucosa, dentition normal - Neck Neck: Present: supple, normal ROM - Respiratory Respiratory effort: normal Respiratory: bilateral: CTA - Cardiovascular Rhythm: regular Heart Sounds: Present: S1 & S2. Absent: gallop, rub - Extremities Extremities: no ischemia, No edema, Full ROM - Abdominal General gastrointestinal: soft, non-tender, non-distended, normal bowel sounds - Integumentary Integumentary: Present: clear, warm, dry - Neurologic Neurologic: CNII-XII intact, moves all extremities Results - Labs CBC & Chem 7: 01/28/22 04:28 01/28/22 04:28 Labs: Laboratory Last Values WBC 8.5 K/mm3 (4.5-11.0) 01/28/22 04:28 RBC 3.07 M/mm3 (3.65-5.03) L 01/28/22 04:28 Hgb 8.9 gm/dl (11.8-15.2) L 01/28/22 04:28 Hct 26.1 % (35.5-45.6) L 01/28/22 04:28 MCV 85 fl (84-94) 01/28/22 04:28 MCH 29 pg (28-32) 01/28/22 04:28 MCHC 34 % (32-34) 01/28/22 04:28 RDW 13.0 % (13.2-15.2) L 01/28/22 04:28 Plt Count 180 K/mm3 (140-440) 01/28/22 04:28 Eos % (Auto) Motor Polarizer 01/28/22 04:28 Add Manual Diff Complete 01/28/22 04:28 Total Counted 100 01/28/22 04:28 Seg Neuts % (Manual) 41.0 % (40.0-70.0) 01/28/22 04:28 Band Neutrophils % 0 % 01/28/22 04:28 Lymphocytes % (Manual) 26.0 % (13.4-35.0) 01/28/22 04:28 Reactive Lymphs % (Man) 0 % 01/28/22 04:28 Monocytes % (Manual) 7.0 % (0.0-7.3) 01/28/22 04:28 Eosinophils % (Manual) 26.0 % (0.0-4.3) H 01/28/22 04:28 Basophils % (Manual) 0 % (0.0-1.8) 01/28/22 04:28 Metamyelocytes % 0 % 01/28/22 04:28 Myelocytes % 0 % 01/28/22 04:28 Promyelocytes % 0 % 01/28/22 04:28 Blast Cells % 0 % 01/28/22 04:28 Nucleated RBC % Not Reportable 01/28/22 04:28 Seg Neutrophils # Man 3.5 K/mm3 (1.8-7.7) 01/28/22 04:28 Band Neutrophils # 0.0 K/mm3 01/28/22 04:28 Lymphocytes # (Manual) 2.2 K/mm3 (1.2-5.4) 01/28/22 04:28 Abs React Lymphs (Man) 0.0 K/mm3 01/28/22 04:28 Monocytes # (Manual) 0.6 K/mm3 (0.0-0.8) 01/28/22 04:28 Eosinophils # (Manual) 2.2 K/mm3 (0.0-0.4) H 01/28/22 04:28 Basophils # (Manual) 0.0 K/mm3 (0.0-0.1) 01/28/22 04:28 Metamyelocytes # 0.0 K/mm3 01/28/22 04:28 Myelocytes # 0.0 K/mm3 01/28/22 04:28 Promyelocytes # 0.0 K/mm3 01/28/22 04:28 Blast Cells # 0.0 K/mm3 01/28/22 04:28 WBC Morphology Not Reportable 01/28/22 04:28 Hypersegmented Neuts Not Reportable 01/28/22 04:28 Hyposegmented Neuts Not Reportable 01/28/22 04:28 Hypogranular Neuts Not Reportable 01/28/22 04:28 Smudge Cells Not Reportable 01/28/22 04:28 Toxic Granulation Not Reportable 01/28/22 04:28 Toxic Vacuolation Not Reportable 01/28/22 04:28 Dohle Bodies Not Reportable 01/28/22 04:28 Pelger-Huet Anomaly Not Reportable 01/28/22 04:28 Eddie Rods Not Reportable 01/28/22 04:28 Platelet Estimate Consistent w auto 01/28/22 04:28 Clumped Platelets Not Reportable 01/28/22 04:28 Plt Clumps, EDTA Not Reportable 01/28/22 04:28 Large Platelets Not Reportable 01/28/22 04:28 Giant Platelets Not Reportable 01/28/22 04:28 Platelet Satelliting Not Reportable 01/28/22 04:28 Plt Morphology Comment Not Reportable 01/28/22 04:28 RBC Morphology Not Reportable 01/28/22 04:28 Dimorphic RBCs Not Reportable 01/28/22 04:28 Polychromasia Not Reportable 01/28/22 04:28 Hypochromasia Not Reportable 01/28/22 04:28 Poikilocytosis Not Reportable 01/28/22 04:28 Anisocytosis 1+ 01/28/22 04:28 Microcytosis Not Reportable 01/28/22 04:28 Macrocytosis Not Reportable 01/28/22 04:28 Spherocytes Not Reportable 01/28/22 04:28 Pappenheimer Bodies Not Reportable 01/28/22 04:28 Sickle Cells Not Reportable 01/28/22 04:28 Target Cells Not Reportable 01/28/22 04:28 Tear Drop Cells Not Reportable 01/28/22 04:28 Ovalocytes Not Reportable 01/28/22 04:28 Helmet Cells Not Reportable 01/28/22 04:28 [place] Bodies Not Reportable 01/28/22 04:28 [place] Rings Not Reportable 01/28/22 04:28 [place] Cells Not Reportable 01/28/22 04:28 Bite Cells Not Reportable 01/28/22 04:28 Crenated Cell Not Reportable 01/28/22 04:28 Elliptocytes Not Reportable 01/28/22 04:28 Acanthocytes (Spur) Not Reportable 01/28/22 04:28 Rouleaux Not Reportable 01/28/22 04:28 Hemoglobin C Crystals Not Reportable 01/28/22 04:28 Schistocytes Not Reportable 01/28/22 04:28 Malaria parasites Not Reportable 01/28/22 04:28 Santosh Bodies Not Reportable 01/28/22 04:28 Hem Pathologist Commnt No 01/28/22 04:28 Sodium 140 mmol/L (137-145) 01/28/22 04:28 Potassium 4.5 mmol/L (3.6-5.0) 01/28/22 04:28 Chloride 101.1 mmol/L (98-107) 01/28/22 04:28 Carbon Dioxide 26 mmol/L (22-30) 01/28/22 04:28 Anion Gap 17 mmol/L 01/28/22 04:28 BUN 64 mg/dL (9-20) H 01/28/22 04:28 Creatinine 7.8 mg/dL (0.8-1.3) H 01/28/22 04:28 Estimated GFR 9 ml/min 01/28/22 04:28 BUN/Creatinine Ratio 8 % 01/28/22 04:28 Glucose 178 mg/dL (75-100) H 01/28/22 04:28 POC Glucose 212 mg/dL (70-105) H 01/27/22 16:17 Calcium 8.9 mg/dL (8.4-10.2) 01/28/22 04:28 Phosphorus 4.70 mg/dL (2.5-4.5) H 01/19/22 03:54 Magnesium 1.70 mg/dL (1.7-2.3) 01/19/22 03:54 Iron 51 ug/dL (49-181) 01/18/22 04:36 Ferritin 45.8 ng/mL (30.0-300.0) 01/18/22 04:36 Total Bilirubin 0.30 mg/dL (0.1-1.2) 01/17/22 13:32 AST 18 units/L (5-40) 01/17/22 13:32 ALT 16 units/L (7-56) 01/17/22 13:32 Alkaline Phosphatase 97 units/L (35-129) 01/17/22 13:32 Total Protein 6.6 g/dL (6.3-8.2) 01/17/22 13:32 Albumin 4.3 g/dL (3.9-5) 01/17/22 13:32 Albumin/Globulin Ratio 1.9 % 01/17/22 13:32 SARS-CoV-2 (PCR) Negative (Negative) 01/22/22 10:05 Hepatitis A IgM Ab Non-reactive (NonReactive) 01/18/22 04:36 Hep Bs Antigen Non-reactive (Negative) 01/18/22 04:36 Hep B Core IgM Ab Non-reactive (NonReactive) 01/18/22 04:36 Hepatitis C Antibody Non-reactive (NonReactive) 01/18/22 04:36 Lopez/IV: Voiding Method Urinal Active Medications - Current Medications Current Medications: Generic Name Dose Route Start Last Admin Trade Name Freq PRN Reason Stop Dose Admin Acetaminophen 650 mg 01/17/22 22:11 01/19/22 09:29 Acetaminophen 325 Mg Tab PO 650 mg Q4H PRN Administration Pain MILD(1-3)/Fever >100.5/COSTA Albuterol 2.5 mg 01/17/22 22:11 Albuterol 2.5 Mg/3 Ml Nebu IH Q3HRT PRN Shortness Of Breath Amlodipine Besylate 10 mg 01/20/22 10:00 01/28/22 08:59 Amlodipine 10 Mg Tab PO 10 mg QDAY BASSAM Administration Dextrose 50 ml 01/17/22 22:50 Dextrose 50% In Water (25gm) 50 Ml Syringe IV Q30MIN PRN Hypoglycemia Protocol Famotidine 10 mg 01/18/22 10:00 01/28/22 08:59 Famotidine 10 Mg Tab PO 10 mg BID BASSAM Administration Sodium Chloride 100 mls @ 999 mls/hr 01/18/22 07:30 Nacl 0.9% IV KAREN PRN Hypotension Insulin Human Lispro 0 unit 01/18/22 00:00 01/28/22 06:28 Insulin Lispro 100 Unit/Ml SUB-Q 2 unit Q6HR BASSAM Administration Protocol Labetalol HCl 10 mg 01/19/22 09:17 01/21/22 23:53 Labetalol 20 Mg/4 Ml Inj IV 10 mg Q4HR PRN Administration sbp > 160 Morphine Sulfate 2 mg 01/17/22 22:11 Morphine 2 Mg/1 Ml Inj IV Q4H PRN Pain, Moderate (4-6) Morphine Sulfate 4 mg 01/17/22 22:11 Morphine 4 Mg/1 Ml Inj IV Q4H PRN Pain , Severe (7-10) Naloxone HCl 0.1 mg 01/17/22 22:08 Naloxone 0.4 Mg/1 Ml Inj IV Q2MIN PRN Res Rate </= 8 or 02 SAT < 92% Ondansetron HCl 4 mg 01/17/22 22:11 01/28/22 09:25 Ondansetron 4 Mg/2 Ml Inj IV 4 mg Q8H PRN Administration Nausea And Vomiting Sodium Chloride 10 ml 01/18/22 10:00 01/28/22 08:59 Sodium Chloride 0.9% 10 Ml Flush Syringe IV 10 ml BID BASSAM Administration Sodium Chloride 10 ml 01/17/22 22:11 01/20/22 00:17 Sodium Chloride 0.9% 10 Ml Flush Syringe IV 10 ml PRN PRN Administration LINE FLUSH Nutrition/Malnutrition Assess - Dietary Evaluation Nutrition/Malnutrition Findings: Nutrition Notes Start: 01/18/22 12:54 Freq: Status: Active Protocol: Document 01/21/22 10:19 REINALDO (Rec: 01/21/22 10:36 REINALDO [id number]) Nutrition Notes Initial or Follow up Reassessment Current Diagnosis CKD (stage V CKD),Diabetes, Hypertension,Hyperlipidemia Other Pertinent Diagnosis ESRD+HD, Anemia. Current Diet Renal Diet (since B 01/19). Labs/Tests 01/21: BUN 40, Crea 6.9, Glu 126, Ca 8.1. Pertinent Medications 01/21: Nutritionally unremarkable. Height 6 ft 2 in Weight 85.7 kg [place] Body Weight (kg) 86.36 BMI 24.3 Intake Prior to Admission Good Weight change and time frame Pt states being unsure if loss body weight SHEARING SHED HAND. No body weight Change reported in 3 days. Weight Status Appropriate Subjective/Other Information RD consult for routine F/U on dietary advancement. Diet advanced to PO, No reports available on Pt's PO intake of meals at the time, will assess at F/U. Pt is on Room Air, O2 saturation @ 98%, according to Physical Assessment History notes. HD started on 01/19, well tolerated, according to Progress notes. Percent of energy/protein needs met: Prescribed Renal Diet provides for energy/protein needs (2, 072 Kcal/77 g) during LOS. Burn Absent Trauma Absent GI Symptoms None Food Allergy No Skin Integrity/Comment Assessment WNL. Minimum of two criteria No Fluid Accumulation N/A Reduced Occupational Therapy Teacher Strength N/A (non-severe) Protein-Calorie Malnutrition N\A #1 Nutrition Diagnosis Altered nutrition-related laboratory values Comments: 01/21: BUN 40, Crea 6.9, Glu 126, Ca 8.1. Diagnosis Progress(for reassessment Continues documentation) Is patient on ventilator? No Is Patient Ambulatory and/or Out of Bed Yes REE-([facility]-ambulatory/OOB) [ [id number] [id number]] Calculation Used for Recommendations [facility] Additional Notes Protein: >1.2 g/Kg ABW; >103 g /day. Fluids: 1-1.5 L/day, or as per MD. Nutrition Intervention Change Diet Order: Continue Renal Diet as tolerated. Goal #1 Adjust the dietary intervention to better serve Pt's needs and clinical conditions during LOS. Follow-Up By: 01/28/22 Additional Comments Continue monitoring food tolerance, %PO intake of meals , and BM.
--- NOTE | 2022-01-28 10:39 | Progress Note ---
Assessment and Plan - Patient Problems (1) Hyperkalemia Current Visit: Yes Status: Acute Plan to address problem: Corrected with hemodialysis. Counseled patient on the importance of maintaining a low potassium diet. (2) ESRD (end stage renal disease) Current Visit: Yes Status: Acute Plan to address problem: Patient has progressed to ESRD requiring the initiation of dialysis during this admission. Permacath placed and is functioning well without any issues. Case management assistance in order to further help place patient at an outpatient dialysis facility for further dialysis needs. Would suggest attempting placement at [facility] or [facility]. Continue on inpatient MWF HD schedule. (3) Hypertensive chronic kidney disease with stage 5 chronic kidney disease or end stage renal disease Current Visit: Yes Status: Chronic Plan to address problem: Monitor blood pressure is under current management. (4) Metabolic acidosis Current Visit: Yes Status: Acute Plan to address problem: corrected with HD. No need to continue oral sodium bicarbonate at this time as he has started hemodialysis. (5) Diabetes Current Visit: No Status: Chronic Plan to address problem: Diabetes management per primary attending. Subjective Date of service: 01/28/22 Principal diagnosis: Chronic kidney disease stage V Interval history: Patient is awake, alert, in no acute distress, denies CP, SOB, fever, chills, n/v/d Objective - Vital Signs Vital signs: Vital Signs - 12hr 01/27/22 01/28/22 01/28/22 23:46 03:41 06:00 Temperature 98.0 F 98.0 F Pulse Rate 79 76 96 H Pulse Rate [ From Monitor] Respiratory 16 16 Rate Blood Pressure 157/86 135/81 O2 Sat by Pulse 99 97 Oximetry 01/28/22 01/28/22 01/28/22 07:53 09:00 10:15 Temperature 97.9 F Pulse Rate 74 81 Pulse Rate [ 76 From Monitor] Respiratory 18 18 Rate Blood Pressure 150/86 164/85 O2 Sat by Pulse 100 96 Oximetry 01/28/22 10:30 Temperature Pulse Rate 81 Pulse Rate [ From Monitor] Respiratory Rate Blood Pressure 138/84 O2 Sat by Pulse Oximetry - General Appearance General appearance: well-developed, well-nourished, appears stated age EENT: ATNC, PERRL, mucous membranes moist Neck: no JVD Respiratory: Present: Clear to Ascultation Cardiology: regular, S1S2 Gastrointestinal: normoactive bowel sounds Integumentary: no rash, other (no edema ) Neurologic: no focal deficit, alert and oriented x3, CN 3-12 intact Psychiatric: mood/affect appropriate, cooperative - Lab 01/28/22 04:28 01/28/22 04:28 Most recent lab results Calcium 8.9 mg/dL (8.4-10.2) 01/28/22 04:28 Phosphorus 4.70 mg/dL (2.5-4.5) H 01/19/22 03:54 Magnesium 1.70 mg/dL (1.7-2.3) 01/19/22 03:54 Medications & Allergies - Medications Allergies/Adverse Reactions: Allergies No Known Allergies Allergy (Verified 01/17/22 13:24) Home Medications: Home Medications Medication Instructions Recorded Confirmed Last Taken Type Glimepiride 1 mg PO DAILY 01/19/22 01/19/22 01/17/22 History Lipitor 20 mg PO HS 01/19/22 01/19/22 01/17/22 History Losartan 50 mg PO DAILY 01/19/22 01/19/22 01/17/22 History amLODIPine 5 mg PO DAILY 01/19/22 01/19/22 01/17/22 History calcitrioL 0.25 mg PO DAILY 01/19/22 01/19/22 01/17/22 History Active Medications: Generic Name Dose Route Start Last Admin Trade Name Freq PRN Reason Stop Dose Admin Acetaminophen 650 mg 01/17/22 22:11 01/19/22 09:29 Acetaminophen 325 Mg Tab PO 650 mg Q4H PRN Administration Pain MILD(1-3)/Fever >100.5/COSTA Albuterol 2.5 mg 01/17/22 22:11 Albuterol 2.5 Mg/3 Ml Nebu IH Q3HRT PRN Shortness Of Breath Amlodipine Besylate 10 mg 01/20/22 10:00 01/28/22 08:59 Amlodipine 10 Mg Tab PO 10 mg QDAY BASSAM Administration Dextrose 50 ml 01/17/22 22:50 Dextrose 50% In Water (25gm) 50 Ml Syringe IV Q30MIN PRN Hypoglycemia Protocol Famotidine 10 mg 01/18/22 10:00 01/28/22 08:59 Famotidine 10 Mg Tab PO 10 mg BID BASSAM Administration Sodium Chloride 100 mls @ 999 mls/hr 01/18/22 07:30 Nacl 0.9% IV KAREN PRN Hypotension Insulin Human Lispro 0 unit 01/18/22 00:00 01/28/22 06:28 Insulin Lispro 100 Unit/Ml SUB-Q 2 unit Q6HR BASSAM Administration Protocol Labetalol HCl 10 mg 01/19/22 09:17 01/21/22 23:53 Labetalol 20 Mg/4 Ml Inj IV 10 mg Q4HR PRN Administration sbp > 160 Morphine Sulfate 2 mg 01/17/22 22:11 Morphine 2 Mg/1 Ml Inj IV Q4H PRN Pain, Moderate (4-6) Morphine Sulfate 4 mg 01/17/22 22:11 Morphine 4 Mg/1 Ml Inj IV Q4H PRN Pain , Severe (7-10) Naloxone HCl 0.1 mg 01/17/22 22:08 Naloxone 0.4 Mg/1 Ml Inj IV Q2MIN PRN Res Rate </= 8 or 02 SAT < 92% Ondansetron HCl 4 mg 01/17/22 22:11 01/28/22 09:25 Ondansetron 4 Mg/2 Ml Inj IV 4 mg Q8H PRN Administration Nausea And Vomiting Sodium Chloride 10 ml 01/18/22 10:00 01/28/22 08:59 Sodium Chloride 0.9% 10 Ml Flush Syringe IV 10 ml BID BASSAM Administration Sodium Chloride 10 ml 01/17/22 22:11 01/20/22 00:17 Sodium Chloride 0.9% 10 Ml Flush Syringe IV 10 ml PRN PRN Administration LINE FLUSH
[2022-01-29 04:00] VITALS: BP 134/86
[2022-01-29] MEDS: INSULIN LISPRO 100 UNIT/ML SUB-Q SCH (05:56)
--- NOTE | 2022-01-29 08:25 | Progress Note ---
Assessment and Plan - Patient Problems (1) Hyperkalemia Current Visit: Yes Status: Acute Plan to address problem: Hyperkalemia due to advanced chronic kidney disease. Potassium has improved. Hemodialysis again tomorrow (2) Metabolic acidosis Current Visit: Yes Status: Acute Plan to address problem: Uremic acidosis. Start p.o. sodium bicarbonate. Improved with dialysis. (3) Chronic kidney disease, stage 5 Current Visit: Yes Status: Chronic Plan to address problem: Patient with hyperkalemia, metabolic acidosis and mild fluid overload. Patient noncompliance with office visits. Status post permacath placement and initial dialysis yesterday which patient tolerated with no complications. Hemodialysis again on Friday. freelance digital project manager has been consulted to assist with outpatient dialysis placement. (4) Anemia of chronic disease Current Visit: Yes Status: Acute Plan to address problem: Check iron stores. Start erythropoiesis stimulating agent. Follow-up hemoglobin (5) Type 2 diabetes mellitus with diabetic chronic kidney disease Current Visit: Yes Status: Resolved Plan to address problem: Blood sugar management by primary attending (6) Hypertensive chronic kidney disease with stage 5 chronic kidney disease or end stage renal disease Current Visit: Yes Status: Chronic Plan to address problem: Follow-up blood pressure on current medications (7) Prostate cancer Current Visit: Yes Status: Acute Plan to address problem: Follow-up with urologist as an outpatient for treatment Subjective Date of service: 01/29/22 Principal diagnosis: Chronic kidney disease stage V Interval history: Patient seen lying in bed. No complaints. No chest pain, shortness of breath, nausea or vomiting. He says he was diagnosed with prostate cancer just before the pandemic and has not followed up with urology since then. He was meant to be started on treatment Objective - Exam Narrative Exam: Middle-aged -[place] male lying in bed in no acute distress HEENT: NCAT, pink oral mucous membrane Neck: Supple, no venous distention CVS: S1S2 RRR with no murmur, rub or gallop Chest: Clear to auscultation Abdomen: Protuberant, soft, nontender, no organomegaly, bowel sounds are present Extremities: No edema Genitourinary deferred Skin warm and dry Neuro: Awake, alert no focal deficits - Vital Signs Vital signs: Vital Signs - 12hr 01/28/22 01/28/22 01/29/22 22:00 23:31 03:48 Temperature 98.1 F 98.3 F Pulse Rate 78 85 Respiratory 18 18 Rate Blood Pressure 154/86 134/86 O2 Sat by Pulse 98 97 98 Oximetry - Lab 01/28/22 04:28 01/28/22 04:28 Most recent lab results Calcium 8.9 mg/dL (8.4-10.2) 01/28/22 04:28 Phosphorus 4.70 mg/dL (2.5-4.5) H 01/19/22 03:54 Magnesium 1.70 mg/dL (1.7-2.3) 01/19/22 03:54 Medications & Allergies - Medications Allergies/Adverse Reactions: Allergies No Known Allergies Allergy (Verified 01/17/22 13:24) Home Medications: Home Medications Medication Instructions Recorded Confirmed Last Taken Type Glimepiride 1 mg PO DAILY 01/19/22 01/19/22 01/17/22 History Lipitor 20 mg PO HS 01/19/22 01/19/22 01/17/22 History Losartan 50 mg PO DAILY 01/19/22 01/19/22 01/17/22 History amLODIPine 5 mg PO DAILY 01/19/22 01/19/22 01/17/22 History calcitrioL 0.25 mg PO DAILY 01/19/22 01/19/22 01/17/22 History Active Medications: Generic Name Dose Route Start Last Admin Trade Name Freq PRN Reason Stop Dose Admin Acetaminophen 650 mg 01/17/22 22:11 01/19/22 09:29 Acetaminophen 325 Mg Tab PO 650 mg Q4H PRN Administration Pain MILD(1-3)/Fever >100.5/COSTA Albuterol 2.5 mg 01/17/22 22:11 Albuterol 2.5 Mg/3 Ml Nebu IH Q3HRT PRN Shortness Of Breath Amlodipine Besylate 10 mg 01/20/22 10:00 01/28/22 08:59 Amlodipine 10 Mg Tab PO 10 mg QDAY BASSAM Administration Dextrose 50 ml 01/17/22 22:50 Dextrose 50% In Water (25gm) 50 Ml Syringe IV Q30MIN PRN Hypoglycemia Protocol Famotidine 10 mg 01/18/22 10:00 01/28/22 21:22 Famotidine 10 Mg Tab PO 10 mg BID BASSAM Administration Sodium Chloride 100 mls @ 999 mls/hr 01/18/22 07:30 Nacl 0.9% IV KAREN PRN Hypotension Insulin Human Lispro 0 unit 01/29/22 11:30 Insulin Lispro 100 Unit/Ml SUB-Q [facility] Protocol Labetalol HCl 10 mg 01/19/22 09:17 01/21/22 23:53 Labetalol 20 Mg/4 Ml Inj IV 10 mg Q4HR PRN Administration sbp > 160 Morphine Sulfate 2 mg 01/17/22 22:11 Morphine 2 Mg/1 Ml Inj IV Q4H PRN Pain, Moderate (4-6) Morphine Sulfate 4 mg 01/17/22 22:11 Morphine 4 Mg/1 Ml Inj IV Q4H PRN Pain , Severe (7-10) Naloxone HCl 0.1 mg 01/17/22 22:08 Naloxone 0.4 Mg/1 Ml Inj IV Q2MIN PRN Res Rate </= 8 or 02 SAT < 92% Ondansetron HCl 4 mg 01/17/22 22:11 01/28/22 09:25 Ondansetron 4 Mg/2 Ml Inj IV 4 mg Q8H PRN Administration Nausea And Vomiting Sodium Chloride 10 ml 01/18/22 10:00 01/28/22 21:22 Sodium Chloride 0.9% 10 Ml Flush Syringe IV 10 ml BID BASSAM Administration Sodium Chloride 10 ml 01/17/22 22:11 01/20/22 00:17 Sodium Chloride 0.9% 10 Ml Flush Syringe IV 10 ml PRN PRN Administration LINE FLUSH
[2022-01-29 09:20] LABS: Hematocrit 30.2 % (35.5-45.6); Mean Corpuscular HGB Conc 33 % (32-34); Mean Corpuscular Volume 85 fl (84-94); Platelet Count 195 K/mm3 (140-440); Red Blood Count 3.55 M/mm3 (3.65-5.03); Red Cell Distribution Width 13.2 % (13.2-15.2)
--- NOTE | 2022-01-29 09:33 | Progress Note ---
Assessment and Plan Assessment and plan: 56-year-old gentleman with history of hypertension, high cholesterol, diabetes and renal insufficiency, who was instructed to come to the emergency room because of abnormal outpatient laboratory studies. The patient reports that he was recently diagnosed with chronic renal insufficiency, and is currently following up with nephrology, Dr. Senior, as well as outpatient vascular surgery, [facility]. He is not currently on hemodialysis. He reports that he recently had outpatient laboratory studies obtained, reportedly they were abnormal, and he was instructed to present to the emergency room. In the emergency room patient is found to have BUN of 55 and creatinine 7.1, potassium 5.6, bicarb 18 and anion gap 17. Subsequently Case discussed with Dr. Senior will see the patient in the morning for hemodialysis we also consult vascular surgery for vascular access. The patient was admitted with diagnosis below ESRD Hyperkalemia Diabetes mellitus type 2 Anemia of chronic disease Hypertension Metabolic acidosis Hospital course: 01/18: VSS. Vascular surgery consulted for vascular access for dialysis. Nephrology following, recommendations noted. Discussed with CM regarding dialysis chair for patient for when he will eventually be discharged outpatient. 01/19: S/p tunneled HD cath placement. K=5.5 on am labs. Will likely get corrected with HD. Will follow along with nephrology plan. CM working on dialysis chair set up. Anticipate d/c on Friday. 01/20: Awaiting am labs, given kionex by nephrology yesterday. Plan is for dialysis friday. CM working on dialysis chair. 01/21: Dialysis planned today. Medically clear for discharge otherwise. Discharge pending HD chair arrangement. He was advised to follow-up outpatient with Dr. Senior and Dr. Rider. 01/22: Awaiting hemodialysis chair arrangement 01/23: Patient has progressed to chronic kidney disease stage V requiring the initiation of dialysis during this admission. Permacath placed and is functioning well without any issues. Patient is tolerating his initial hemodialysis treatments well. Case management assistance in order to further help place patient at an outpatient dialysis facility for further dialysis needs. 01/25/2022. Await hemodialysis chair arrangements 01/26/2022. No new issues overnight. Patient has progressed to chronic kidney disease stage V requiring the initiation of dialysis during this admission. Patient is awaiting outpatient hemodialysis chair 01/27/2022. Patient is awaiting outpatient hemodialysis chair 01/28/2022. Patient is awaiting outpatient hemodialysis chair Hospitalist Physical - Constitutional Vitals: Temp Pulse Resp BP Pulse Ox 98.3 F 85 18 134/86 98 01/29/22 03:48 01/29/22 03:48 01/29/22 03:48 01/29/22 03:48 01/29/22 03:48 General appearance: Present: no acute distress, well-nourished Results - Labs CBC & Chem 7: 01/29/22 07:52 01/28/22 04:28 Labs: Laboratory Last Values WBC 8.7 K/mm3 (4.5-11.0) 01/29/22 07:52 RBC 3.55 M/mm3 (3.65-5.03) L 01/29/22 07:52 Hgb 10.0 gm/dl (11.8-15.2) L 01/29/22 07:52 Hct 30.2 % (35.5-45.6) L 01/29/22 07:52 MCV 85 fl (84-94) 01/29/22 07:52 MCH 28 pg (28-32) 01/29/22 07:52 MCHC 33 % (32-34) 01/29/22 07:52 RDW 13.2 % (13.2-15.2) 01/29/22 07:52 Plt Count 195 K/mm3 (140-440) 01/29/22 07:52 Eos % (Auto) Proposal Analyst 01/29/22 07:52 Add Manual Diff Complete 01/28/22 04:28 Total Counted 100 01/28/22 04:28 Seg Neuts % (Manual) 41.0 % (40.0-70.0) 01/28/22 04:28 Band Neutrophils % 0 % 01/28/22 04:28 Lymphocytes % (Manual) 26.0 % (13.4-35.0) 01/28/22 04:28 Reactive Lymphs % (Man) 0 % 01/28/22 04:28 Monocytes % (Manual) 7.0 % (0.0-7.3) 01/28/22 04:28 Eosinophils % (Manual) 26.0 % (0.0-4.3) H 01/28/22 04:28 Basophils % (Manual) 0 % (0.0-1.8) 01/28/22 04:28 Metamyelocytes % 0 % 01/28/22 04:28 Myelocytes % 0 % 01/28/22 04:28 Promyelocytes % 0 % 01/28/22 04:28 Blast Cells % 0 % 01/28/22 04:28 Nucleated RBC % Not Reportable 01/28/22 04:28 Seg Neutrophils # Man 3.5 K/mm3 (1.8-7.7) 01/28/22 04:28 Band Neutrophils # 0.0 K/mm3 01/28/22 04:28 Lymphocytes # (Manual) 2.2 K/mm3 (1.2-5.4) 01/28/22 04:28 Abs React Lymphs (Man) 0.0 K/mm3 01/28/22 04:28 Monocytes # (Manual) 0.6 K/mm3 (0.0-0.8) 01/28/22 04:28 Eosinophils # (Manual) 2.2 K/mm3 (0.0-0.4) H 01/28/22 04:28 Basophils # (Manual) 0.0 K/mm3 (0.0-0.1) 01/28/22 04:28 Metamyelocytes # 0.0 K/mm3 01/28/22 04:28 Myelocytes # 0.0 K/mm3 01/28/22 04:28 Promyelocytes # 0.0 K/mm3 01/28/22 04:28 Blast Cells # 0.0 K/mm3 01/28/22 04:28 WBC Morphology Not Reportable 01/28/22 04:28 Hypersegmented Neuts Not Reportable 01/28/22 04:28 Hyposegmented Neuts Not Reportable 01/28/22 04:28 Hypogranular Neuts Not Reportable 01/28/22 04:28 Smudge Cells Not Reportable 01/28/22 04:28 Toxic Granulation Not Reportable 01/28/22 04:28 Toxic Vacuolation Not Reportable 01/28/22 04:28 Dohle Bodies Not Reportable 01/28/22 04:28 Pelger-Huet Anomaly Not Reportable 01/28/22 04:28 Eddie Rods Not Reportable 01/28/22 04:28 Platelet Estimate Consistent w auto 01/28/22 04:28 Clumped Platelets Not Reportable 01/28/22 04:28 Plt Clumps, EDTA Not Reportable 01/28/22 04:28 Large Platelets Not Reportable 01/28/22 04:28 Giant Platelets Not Reportable 01/28/22 04:28 Platelet Satelliting Not Reportable 01/28/22 04:28 Plt Morphology Comment Not Reportable 01/28/22 04:28 RBC Morphology Not Reportable 01/28/22 04:28 Dimorphic RBCs Not Reportable 01/28/22 04:28 Polychromasia Not Reportable 01/28/22 04:28 Hypochromasia Not Reportable 01/28/22 04:28 Poikilocytosis Not Reportable 01/28/22 04:28 Anisocytosis 1+ 01/28/22 04:28 Microcytosis Not Reportable 01/28/22 04:28 Macrocytosis Not Reportable 01/28/22 04:28 Spherocytes Not Reportable 01/28/22 04:28 Pappenheimer Bodies Not Reportable 01/28/22 04:28 Sickle Cells Not Reportable 01/28/22 04:28 Target Cells Not Reportable 01/28/22 04:28 Tear Drop Cells Not Reportable 01/28/22 04:28 Ovalocytes Not Reportable 01/28/22 04:28 Helmet Cells Not Reportable 01/28/22 04:[address] [place] Bodies Not Reportable 01/28/22 04:28 [place] Rings Not Reportable 01/28/22 04:28 [place] Cells Not Reportable 01/28/22 04:28 Bite Cells Not Reportable 01/28/22 04:28 Crenated Cell Not Reportable 01/28/22 04:28 Elliptocytes Not Reportable 01/28/22 04:28 Acanthocytes (Spur) Not Reportable 01/28/22 04:28 Rouleaux Not Reportable 01/28/22 04:28 Hemoglobin C Crystals Not Reportable 01/28/22 04:28 Schistocytes Not Reportable 01/28/22 04:28 Malaria parasites Not Reportable 01/28/22 04:28 [place]soh Bodies Not Reportable 01/28/22 04:28 Hem Pathologist Commnt No 01/28/22 04:28 Sodium 140 mmol/L (137-145) 01/28/22 04:28 Potassium 4.5 mmol/L (3.6-5.0) 01/28/22 04:28 Chloride 101.1 mmol/L (98-107) 01/28/22 04:28 Carbon Dioxide 26 mmol/L (22-30) 01/28/22 04:28 Anion Gap 17 mmol/L 01/28/22 04:28 BUN 64 mg/dL (9-20) H 01/28/22 04:28 Creatinine 7.8 mg/dL (0.8-1.3) H 01/28/22 04:28 Estimated GFR 9 ml/min 01/28/22 04:28 BUN/Creatinine Ratio 8 % 01/28/22 04:28 Glucose 178 mg/dL (75-100) H 01/28/22 04:28 POC Glucose 179 mg/dL (70-105) H 01/29/22 05:11 Calcium 8.9 mg/dL (8.4-10.2) 01/28/22 04:28 Phosphorus 4.70 mg/dL (2.5-4.5) H 01/19/22 03:54 Magnesium 1.70 mg/dL (1.7-2.3) 01/19/22 03:54 Iron 51 ug/dL (49-181) 01/18/22 04:36 Ferritin 45.8 ng/mL (30.0-300.0) 01/18/22 04:36 Total Bilirubin 0.30 mg/dL (0.1-1.2) 01/17/22 13:32 AST 18 units/L (5-40) 01/17/22 13:32 ALT 16 units/L (7-56) 01/17/22 13:32 Alkaline Phosphatase 97 units/L (35-129) 01/17/22 13:32 Total Protein 6.6 g/dL (6.3-8.2) 01/17/22 13:32 Albumin 4.3 g/dL (3.9-5) 01/17/22 13:32 Albumin/Globulin Ratio 1.9 % 01/17/22 13:32 SARS-CoV-2 (PCR) Negative (Negative) 01/22/22 10:05 Hepatitis A IgM Ab Non-reactive (NonReactive) 01/18/22 04:36 Hep Bs Antigen Non-reactive (Negative) 01/18/22 04:36 Hep B Core IgM Ab Non-reactive (NonReactive) 01/18/22 04:36 Hepatitis C Antibody Non-reactive (NonReactive) 01/18/22 04:36 Lopez/IV: Voiding Method Toilet Active Medications - Current Medications Current Medications: Generic Name Dose Route Start Last Admin Trade Name Freq PRN Reason Stop Dose Admin Acetaminophen 650 mg 01/17/22 22:11 01/19/22 09:29 Acetaminophen 325 Mg Tab PO 650 mg Q4H PRN Administration Pain MILD(1-3)/Fever >100.5/COSTA Albuterol 2.5 mg 01/17/22 22:11 Albuterol 2.5 Mg/3 Ml Nebu IH Q3HRT PRN Shortness Of Breath Amlodipine Besylate 10 mg 01/20/22 10:00 01/28/22 08:59 Amlodipine 10 Mg Tab PO 10 mg QDAY BASSAM Administration Dextrose 50 ml 01/17/22 22:50 Dextrose 50% In Water (25gm) 50 Ml Syringe IV Q30MIN PRN Hypoglycemia Protocol Famotidine 10 mg 01/18/22 10:00 01/28/22 21:22 Famotidine 10 Mg Tab PO 10 mg BID BASSAM Administration Sodium Chloride 100 mls @ 999 mls/hr 01/18/22 07:30 Nacl 0.9% IV KAREN PRN Hypotension Insulin Human Lispro 0 unit 01/29/22 11:30 Insulin Lispro 100 Unit/Ml SUB-Q ACHS BASSAM Protocol Labetalol HCl 10 mg 01/19/22 09:17 01/21/22 23:53 Labetalol 20 Mg/4 Ml Inj IV 10 mg Q4HR PRN Administration sbp > 160 Morphine Sulfate 2 mg 01/17/22 22:11 Morphine 2 Mg/1 Ml Inj IV Q4H PRN Pain, Moderate (4-6) Morphine Sulfate 4 mg 01/17/22 22:11 Morphine 4 Mg/1 Ml Inj IV Q4H PRN Pain , Severe (7-10) Naloxone HCl 0.1 mg 01/17/22 22:08 Naloxone 0.4 Mg/1 Ml Inj IV Q2MIN PRN Res Rate </= 8 or 02 SAT < 92% Ondansetron HCl 4 mg 01/17/22 22:11 01/28/22 09:25 Ondansetron 4 Mg/2 Ml Inj IV 4 mg Q8H PRN Administration Nausea And Vomiting Sodium Chloride 10 ml 01/18/22 10:00 01/28/22 21:22 Sodium Chloride 0.9% 10 Ml Flush Syringe IV 10 ml BID BASSAM Administration Sodium Chloride 10 ml 01/17/22 22:11 01/20/22 00:17 Sodium Chloride 0.9% 10 Ml Flush Syringe IV 10 ml PRN PRN Administration LINE FLUSH Nutrition/Malnutrition Assess - Dietary Evaluation Nutrition/Malnutrition Findings: Nutrition Notes Start: 01/18/22 12:54 Freq: Status: Active Protocol: Document 01/28/22 13:03 REINALDO (Rec: 01/28/22 13:17 REINALDO [id number]) Nutrition Notes Initial or Follow up Reassessment Current Diagnosis CKD (stage V CKD),Diabetes, Hypertension,Hyperlipidemia Other Pertinent Diagnosis ESRD+HD, Metabolic Acidosis, Anemia. Current Diet Renal Diet (since B 01/19). Labs/Tests 01/28: BUN 68, Crea 7.8, Glu 178. Pertinent Medications 01/28: Nutritionally unremarkable. Height 6 ft 2 in Weight 97.5 kg Braxton Body Weight (kg) 86.36 BMI 27.6 Weight change and time frame Discrepancy of 11.8 Kg body weight gain reported in 1 week . Weight Status Overweight Subjective/Other Information RD consult for routine F/U on dietary advancement. Diet continues as prescribed, No reports available on Pt's PO intake of meals at the time , will assess at F/U. Pt is on Room Air, O2 saturation @ 96%, according to Physical Assessment History notes. Pt cleared for discharge, awaiting HD Chair as outpatient, according to Progress notes. Percent of energy/protein needs met: Prescribed Renal Diet provides for energy/protein needs (2, 072 Kcal/77 g) during LOS. Burn Absent Trauma Absent GI Symptoms None Food Allergy No Skin Integrity/Comment Assessment WNL. Minimum of two criteria No Fluid Accumulation N/A Reduced Sheriff Detective Strength N/A (non-severe) Protein-Calorie Malnutrition N\A #1 Nutrition Diagnosis Altered nutrition-related laboratory values Comments: 01/28: BUN 68, Crea 7.8, Glu 178. Diagnosis Progress(for reassessment Continues documentation) Is patient on ventilator? No Is Patient Ambulatory and/or Out of Bed Yes REE-([place]-St. Jeor-ambulatory/OOB) [ 2424.175 [id number]] Kcal/Kg value to use for calculation 23 Approximate Energy Requirements Using 2243 kcal/Kg Calculation Used for Recommendations Kcal/kg Additional Notes Protein: >1.2 g/Kg ABW; >103 g /day. Fluids: 1-1.5 L/day, or as per MD. Nutrition Intervention Change Diet Order: Continue Renal Diet as tolerated. Goal #1 Adjust the dietary intervention to better serve Pt's needs and clinical conditions during LOS. Follow-Up By: 02/04/22 Additional Comments Continue monitoring food tolerance, %PO intake of meals , and BM.
[2022-01-29 09:37] LABS: Calcium 9.2 mg/dL (8.4-10.2)
[2022-01-29 10:38] LABS: Anisocytosis 1+; Basophils % (Manual) 0 % (0.0-1.8); Large Platelets Few; Platelet Estimate Cons; Total Cells Counted 100
[2022-01-29] MEDS: amLODIPine 10 MG TAB PO SCH (10:50)
[2022-01-29] MEDS: FAMOTIDINE 10 MG TAB PO SCH (10:50)
[2022-01-29] MEDS ORDERED: INSULIN LISPRO 100 UNIT/ML SUB-Q SCH (11:30)
--- NOTE | 2022-01-29 14:47 | Discharge Summary ---
Providers - Providers Date of Admission: 01/18/22 12:59 Date of discharge: 01/29/22 Attending physician: CONNER HERRERA 01/17/22 21:24 Consult to Physician [CONS] Urgent Comment: Consulting Provider: KEENAN ESPINAL Physician Instructions: Reason For Exam: emiliana esrd 01/17/22 21:54 Consult to Physician [CONS] Routine Comment: Consulting Provider: ANGELITO BRYANT Physician Instructions: Reason For Exam: End-stage renal disease, renal request permacath 01/17/22 22:50 Consult to Dietitian/Nutrition [CONS] Routine Physician Instructions: Reason For Exam: Reason for Consult: Diet education 01/18/22 08:14 Consult to Case Management [CONS] Routine Services Needed at Discharge: Other Notified:: case management Comment:: Arrange outpatient dialysis at [facility] dialysis clinic Primary care physician: KEENAN ESPINAL Hospitalization Condition: Good Disposition: 01 HOME / SELF CARE / HOMELESS Core Measure Documentation - Palliative Care Palliative Care/ Comfort Measures: Not Applicable Exam - Constitutional Vitals: Temp Pulse Resp BP Pulse Ox 98.3 F 85 18 134/86 98 01/29/22 03:48 01/29/22 03:48 01/29/22 03:48 01/29/22 03:48 01/29/22 10:00 Plan Additional Instructions: [facility] dialysis clinic. [address] [place]. [address]. PHONE#[phone]. CHAIR DAYS/TIME: FRIDAY,FRIDAY,FRIDAY AT 10:45AM,1ST TREATMENT OUTPATIENT IS SET FOR Friday AT 10:45AM, PATIENT WILL NEED TO ARRIVE AT CLINIC AT 10:15AM TO SIGN PAPERWORK AND BRING INSURANCE CARD. DCP notified CM. DCP gave copy of dialysis schedule to patient and put copy in chart. If you have worsening symptoms contact MD or go to the nearest emergency room as needed. Strongly advised to comply with medications, diet, follow-up physician office visits and hemodialysis Tue, Kelly and Sat [TTS] Follow up with: ANGELITO QUINONES MD [Staff Physician] - 7 Days KEENAN ESPINAL MD [Primary Care Provider] - 7 Days
== END 2022-01-29 16:46 | disposition home or self-care (01) | DRG 673 ==
LOC: ED 12:38 → 4A 21:59 → OBSVTOIN 01-18 12:59
PROVIDERS: ADMIT Hospitalist; ATTEND Internal Medicine
PROC: 0JH63XZ Insertion of Tunneled Vascular Access Device into Chest Subcutaneous Tissue and Fascia, Percutaneous Approach (ICD-10-PCS; principal; 2022-01-18)
PROC: 02H633Z Insertion of Infusion Device into Right Atrium, Percutaneous Approach (ICD-10-PCS; 2022-01-18)
PROC: B5181ZA Fluoroscopy of Superior Vena Cava using Low Osmolar Contrast, Guidance (ICD-10-PCS; 2022-01-18)
PROC: B548ZZA Ultrasonography of Superior Vena Cava, Guidance (ICD-10-PCS; 2022-01-18)
PROC: 5A1D70Z Performance of Urinary Filtration, Intermittent, Less than 6 Hours Per Day (ICD-10-PCS; 2022-01-18)
PROC: 5A1D70Z Performance of Urinary Filtration, Intermittent, Less than 6 Hours Per Day (ICD-10-PCS; 2022-01-21)
PROC: 5A1D70Z Performance of Urinary Filtration, Intermittent, Less than 6 Hours Per Day (ICD-10-PCS; 2022-01-23)
PROC: 5A1D70Z Performance of Urinary Filtration, Intermittent, Less than 6 Hours Per Day (ICD-10-PCS; 2022-01-25)
PROC: 5A1D70Z Performance of Urinary Filtration, Intermittent, Less than 6 Hours Per Day (ICD-10-PCS; 2022-01-28)
DX: I12.0 Hypertensive chronic kidney disease with stage 5 chronic kidney disease or end stage renal disease (principal); N18.6 End stage renal disease; E87.2 Acidosis; E87.5 Hyperkalemia; Z20.822 Contact with and (suspected) exposure to COVID-19; D63.8 Anemia in other chronic diseases classified elsewhere; E78.00 Pure hypercholesterolemia, unspecified; E11.22 Type 2 diabetes mellitus with diabetic chronic kidney disease; F17.200 Nicotine dependence, unspecified, uncomplicated; C61 Malignant neoplasm of prostate; Z83.3 Family history of diabetes mellitus; Z82.49 Family history of ischemic heart disease and other diseases of the circulatory system
CPT/HCPCS: 36415; 36558; 71045; 77001; 80048; 80053; 80074; 82728; 82962; 83540; 83735; 84100; 85007; 85025; 93005; 93970; 94640; 94644; 96374; 96375; 99285; G0378; J3490; Q9967; C1750; J0610; J0885; J1644; J1815; J1940; J2250; J2405; J3010; J7030; U0003